=== PATIENT | female | born 1955 | race Two or more races ===

== ENCOUNTER → 2017-06-28 | Outpatient (REF) | payer MEDICAID | LOC: M SFHCCAPE 08:24 | PROVIDERS: ATTEND Physician Assistant | DX: Z12.4 Encounter for screening for malignant neoplasm of cervix (principal) ==

== ENCOUNTER → 2017-07-13 | Outpatient (CLI) | payer MEDICAID, OTHER ==
--- NOTE | 2017-07-21 16:03 | REPMRS ---
Patient History The patient states she had a clinical breast exam in 07/11 Patient is postmenopausal, has history of cancer in the left breast at age 52, and had previous chemotherapy at age 52. Family history of pancreatic cancer in mother at age 86. Malignant excisional biopsy of the left breast, 2008. Radiation therapy of the left breast, 2008. Benign stereotactic core biopsy of the right breast. Took tamoxifen for 1 year. Digital Woman Screen Mammo: July 13, 2017 - Exam #: [id number] Bilateral CC and MLO view(s) were taken. Technologist: Katie Morgan, Technologist Prior study comparison: February 12, 2015, digital bilateral screening mammo, [facility]. August 21, 2013, digital bilateral screening mammo, [facility]. FINDINGS: There are scattered fibroglandular densities. There are previously placed needle biopsy marker clips again seen in each breast. There are stable post treatment changes in the left breast.There has been no change in the appearance of the mammogram from the prior studies. There is a mild amount of scattered fibroglandular density which is fairly symmetric. There is no interval development of dominant mass, architectural distortion, or clustered microcalcification suggestive of malignancy. ASSESSMENT: BI-RADS/ACR category 2 mammogram. Benign finding(s). Recommendation Routine screening mammogram in 1 year (for women over age 40). This mammogram was interpreted with the aid of an FDA-approved computer-aided dectection system. Electronically Signed By: Gabriele Vaughan MD 07/21/17 [id number]
== END ==
LOC: M WHC 14:13
PROVIDERS: ATTEND Physician Assistant
DX: Z12.31 Encounter for screening mammogram for malignant neoplasm of breast (principal); Z78.0 Asymptomatic menopausal state

== ENCOUNTER → 2017-07-14 | Outpatient (REF) | payer MEDICAID, OTHER ==
[2017-07-14 16:43] LABS: BASO % 0.5 % (0.0-1.0); EOS # 0.1 10^3/uL (0.0-0.50); EOS % 1.8 % (0.0-3.0); IMMATURE GRANULOCYTE % 0.3 % (0-0); LYMPH # 1.5 10^3/uL (1.5-4.5); LYMPH % 38.4 % (24.0-44.0); MEAN CORPUSCULAR HEMOGLOBIN 32.8 pg (27.0-33.0); MEAN CORPUSCULAR HGB CONC 33.3 g/dl (32.0-36.5); MEAN CORPUSCULAR VOLUME 98.3 fl (80.0-96.0); MONO # 0.3 10^3/uL (0.0-0.8); MONO % 7.9 % (0.0-5.0); NEUTROPHILS # 1.9 10^3/uL (1.8-7.7); NEUTROPHILS % 51.1 % (36.0-66.0); PLATELET COUNT, AUTOMATED 239 10^3/uL (150-450); RED CELL DISTRIBUTION WIDTH 13.8 % (11.5-14.5); WHITE BLOOD COUNT 3.8 10^3/uL (4.0-10.0)
[2017-07-14 17:02] LABS: ALBUMIN 3.9 GM/DL (3.2-5.2); ALBUMIN/GLOBULIN RATIO 1.05 (1.00-1.93); ALKALINE PHOSPHATASE 93 U/L (45-117); ALT/SGPT 48 U/L (12-78); ANION GAP 8 MEQ/L (8-16); AST/SGOT 62 U/L (7-37); BILIRUBIN,TOTAL 0.4 MG/DL (0.2-1.0); BLOOD UREA NITROGEN 18 MG/DL (7-18); CALCIUM LEVEL 8.6 MG/DL (8.8-10.2); CARBON DIOXIDE LEVEL 30 MEQ/L (21-32); CHLORIDE LEVEL 105 MEQ/L (98-107); CHOLESTEROL LEVEL 210 MG/DL (<200); CREATININE FOR GFR 0.62 MG/DL (0.55-1.02); FREE T4 0.71 NG/DL (0.76-1.46); GLOMERULAR FILTRATION RATE > 60.0 (>45); GLUCOSE, FASTING 88 MG/DL (80-110); POTASSIUM SERUM 4.4 MEQ/L (3.5-5.1); SODIUM LEVEL 143 MEQ/L (136-145); TOTAL PROTEIN 7.6 GM/DL (6.4-8.2); TRIGLYCERIDES LEVEL 737 MG/DL (<150)
== END ==
LOC: M SFHCCAPE 08:56
PROVIDERS: ATTEND Physician Assistant
DX: K76.0 Fatty (change of) liver, not elsewhere classified (principal)

== ENCOUNTER → 2017-08-26 | Outpatient (CLI) | payer OTHER ==
[~2017-08-26] MED LIST: ISOVUE-370 76% 100ML VIAL (Q9967) As Ordered
== END ==
LOC: M RAD 12:55
DX: R59.0 Localized enlarged lymph nodes (principal)
CPT/HCPCS: Q9967

== ENCOUNTER → 2017-09-21 | Outpatient (REF) | payer OTHER ==
[2017-09-21 17:40] LABS: ALBUMIN 3.4 GM/DL (3.2-5.2); ALBUMIN/GLOBULIN RATIO 0.97 (1.00-1.93); ALKALINE PHOSPHATASE 104 U/L (45-117); ALT/SGPT 59 U/L (12-78); ANION GAP 10 MEQ/L (8-16); AST/SGOT 80 U/L (7-37); BILIRUBIN,TOTAL 0.2 MG/DL (0.2-1.0); BLOOD UREA NITROGEN 20 MG/DL (7-18); CALCIUM LEVEL 8.3 MG/DL (8.8-10.2); CARBON DIOXIDE LEVEL 27 MEQ/L (21-32); CHLORIDE LEVEL 104 MEQ/L (98-107); CHOLESTEROL LEVEL 172 MG/DL (<200); CHOLESTEROL RISK RATIO 3.245 (<5); CREATININE FOR GFR 0.65 MG/DL (0.55-1.30); FREE T4 0.66 NG/DL (0.76-1.46); GLOMERULAR FILTRATION RATE > 60.0 (>45); GLUCOSE, FASTING 116 MG/DL (70-100); HDL CHOLESTEROL 53 MG/DL (>40); NON-HDL-C 119 MG/DL; POTASSIUM SERUM 4.7 MEQ/L (3.5-5.1); SODIUM LEVEL 141 MEQ/L (136-145); TOTAL PROTEIN 6.9 GM/DL (6.4-8.2); TRIGLYCERIDES LEVEL 713 MG/DL (<150)
== END ==
LOC: M SFHCCAPE 10:35
DX: E03.9 Hypothyroidism, unspecified (principal); E78.1 Pure hyperglyceridemia

== ENCOUNTER → 2017-12-02 | Outpatient (CLI) | payer OTHER ==
[~2017-12-02] MED LIST changes: -ISOVUE-370 76% 100ML VIAL (Q9967) As Ordered; +LIDOCAINE 1% MDV 20ML VIAL As Ordered
== END ==
LOC: M RADPRO 11:24
DX: C77.0 Secondary and unspecified malignant neoplasm of lymph nodes of head, face and neck (principal); Z85.3 Personal history of malignant neoplasm of breast
CPT/HCPCS: 38505

== ENCOUNTER → 2017-12-07 | Outpatient (CLI) | payer OTHER | LOC: M PLARAD 10:46 | DX: C77.0 Secondary and unspecified malignant neoplasm of lymph nodes of head, face and neck (principal) | CPT/HCPCS: 78815 ==

== ENCOUNTER → 2018-01-03 | Outpatient (REF) | payer OTHER ==
[2018-01-05 00:07] LABS: CA 27.29 56.1 U/mL (0.0-38.6)
== END ==
LOC: M LAB REF 13:19
DX: C77.0 Secondary and unspecified malignant neoplasm of lymph nodes of head, face and neck (principal); C50.911 Malignant neoplasm of unspecified site of right female breast
CPT/HCPCS: 86300

== ENCOUNTER → 2018-01-11 | Outpatient (CLI) | payer OTHER | LOC: M WHC 14:15 | DX: Z78.0 Asymptomatic menopausal state (principal); C50.919 Malignant neoplasm of unspecified site of unspecified female breast; M85.851 Other specified disorders of bone density and structure, right thigh | CPT/HCPCS: 77080 ==

== ENCOUNTER → 2018-01-12 | Outpatient (REF) | payer OTHER | LOC: M LAB REF 13:21 | DX: C50.919 Malignant neoplasm of unspecified site of unspecified female breast (principal) | CPT/HCPCS: 88300 ==

== ENCOUNTER → 2018-01-24 | Outpatient (REF) | payer OTHER ==
[2018-01-24 20:08] LABS: BASO % 0.2 % (0.0-1.0); HEMATOCRIT 37.9 % (36.0-47.0); HEMOGLOBIN 12.5 g/dl (12.0-15.5); IMMATURE GRANULOCYTE % 0.2 % (0-3.0); LYMPH # 1.5 10^3/uL (1.5-4.5); LYMPH % 35.5 % (24.0-44.0); MEAN CORPUSCULAR HEMOGLOBIN 33.2 pg (27.0-33.0); MEAN CORPUSCULAR VOLUME 100.5 fl (80.0-96.0); MONO # 0.5 10^3/uL (0.0-0.8); MONO % 12.7 % (0.0-5.0); NEUTROPHILS # 2.1 10^3/uL (1.8-7.7); NEUTROPHILS % 50.4 % (36.0-66.0); PLATELET COUNT, AUTOMATED 195 10^3/uL (150-450); RED BLOOD COUNT 3.77 10^6/uL (4.00-5.40); RED CELL DISTRIBUTION WIDTH 14.6 % (11.5-14.5); WHITE BLOOD COUNT 4.1 10^3/uL (4.0-10.0)
[2018-01-24 20:30] LABS: ALBUMIN 3.5 GM/DL (3.2-5.2); ALBUMIN/GLOBULIN RATIO 0.88 (1.00-1.93); ALKALINE PHOSPHATASE 145 U/L (45-117); ALT/SGPT 101 U/L (12-78); ANION GAP 10 MEQ/L (8-16); AST/SGOT 138 U/L (7-37); BILIRUBIN,TOTAL 0.3 MG/DL (0.2-1.0); BLOOD UREA NITROGEN 25 MG/DL (7-18); C REACTIVE PROTEIN QUANTITATIV < 0.30 MG/DL (0.00-0.30); CALCIUM LEVEL 8.7 MG/DL (8.8-10.2); CARBON DIOXIDE LEVEL 26 MEQ/L (21-32); CHLORIDE LEVEL 100 MEQ/L (98-107); CHOLESTEROL LEVEL 208 MG/DL (<200); CHOLESTEROL RISK RATIO 2.773 (<5); CREATININE FOR GFR 0.86 MG/DL (0.55-1.30); FREE T4 0.86 NG/DL (0.76-1.46); GLOMERULAR FILTRATION RATE > 60.0 (>45); GLUCOSE, FASTING 116 MG/DL (70-100); HDL CHOLESTEROL 75 MG/DL (>40); NON-HDL-C 133 MG/DL; POTASSIUM SERUM 4.4 MEQ/L (3.5-5.1); RHEUMATOID FACTOR QUANT 17.3 IU/ML (<15.0); SODIUM LEVEL 136 MEQ/L (136-145); TOTAL PROTEIN 7.5 GM/DL (6.4-8.2); TRIGLYCERIDES LEVEL 1226 MG/DL (<150)
[2018-01-24 20:47] LABS: ERYTHROCYTE SEDIMENTATION RATE 6 mm/hr (0-30)
[2018-01-28 14:18] LABS: ANTI DOUBLE STRAND-DNA AB 1 IU/mL (0-9); ANTINUCLEAR ANTIBODIES DIRECT Positive (Negative); Lyme Disease IgG Ab 18 kDa Ban Absent (.); Lyme Disease IgG Ab 23 kDa Ban Absent (.); Lyme Disease IgG Ab 28 kDa Ban Absent (.); Lyme Disease IgG Ab 30 kDa Ban Present (.); Lyme Disease IgG Ab 39 kDa Ban Absent (.); Lyme Disease IgG Ab 41 kDa Ban Present (.); Lyme Disease IgG Ab 45 kDa Ban Present (.); Lyme Disease IgG Ab 58 kDa Ban Absent (.); Lyme Disease IgG Ab 66 kDa Ban Present (.); Lyme Disease IgG Ab 93 kDa Ban Absent (.); Lyme Disease IgG West Blot Int Negative (.); Lyme Disease IgG/IgM Antibodie 2.66 ISR (0.00-0.90); Lyme Disease IgM Ab 23 kDa Ban Absent (.); Lyme Disease IgM Ab 39 kDa Ban Absent (.); Lyme Disease IgM Ab 41 kDa Ban Absent (.); Lyme Disease IgM Ab Quantitati 1.38 index (0.00-0.79); Lyme Disease IgM West Blot Int Negative (.); RNP ANTIBODIES 0.4 AI (0.0-0.9); SJOGREN'S ANTI SS-B 0.9 AI (0.0-0.9); SMITH ANTIBODIES <0.2 AI (0.0-0.9)
[2018-01-28 14:18] LABS: CYCLIC CITRULLINATED PEPTIDE 6 units (0-19)
== END ==
LOC: M SFHCCAPE 09:08
DX: R21 Rash and other nonspecific skin eruption (principal); I10 Essential (primary) hypertension; E03.9 Hypothyroidism, unspecified; E78.1 Pure hyperglyceridemia

== ENCOUNTER → 2018-02-08 | Outpatient (CLI) | payer OTHER | LOC: M ONCR 09:35 | DX: C77.0 Secondary and unspecified malignant neoplasm of lymph nodes of head, face and neck (principal) | CPT/HCPCS: 99201 ==

== ENCOUNTER → 2018-02-16 | Outpatient (REF) | payer OTHER ==
[2018-02-16 17:39] LABS: STABLE ALKPHOS 34 U/L
[2018-02-16 17:54] LABS: ALBUMIN 2.9 GM/DL (3.2-5.2); ALBUMIN/GLOBULIN RATIO 0.83 (1.00-1.93); ALKALINE PHOSPHATASE 84 U/L (45-117); ALT/SGPT 30 U/L (12-78); ANION GAP 10 MEQ/L (8-16); AST/SGOT 27 U/L (7-37); BILIRUBIN,TOTAL 0.2 MG/DL (0.2-1.0); BLOOD UREA NITROGEN 10 MG/DL (7-18); CALCIUM LEVEL 8.2 MG/DL (8.8-10.2); CARBON DIOXIDE LEVEL 26 MEQ/L (21-32); CHLORIDE LEVEL 111 MEQ/L (98-107); CHOLESTEROL LEVEL 127 MG/DL (<200); CHOLESTEROL RISK RATIO 1.607 (<5); CREATININE FOR GFR 0.57 MG/DL (0.55-1.30); GAMMA GLUTAMYLTRANSPEPTIDASE 252 U/L (5-55); GLOMERULAR FILTRATION RATE > 60.0 (>45); GLUCOSE, FASTING 101 MG/DL (70-100); HDL CHOLESTEROL 79 MG/DL (>40); LDL CHOLESTEROL 22.2 MG/DL (<100); NON-HDL-C 48 MG/DL; POTASSIUM SERUM 4.6 MEQ/L (3.5-5.1); SODIUM LEVEL 147 MEQ/L (136-145); TOTAL PROTEIN 6.4 GM/DL (6.4-8.2); TRIGLYCERIDES LEVEL 129 MG/DL (<150)
[2018-02-16 17:57] LABS: LABILE ALKPHOS 50 U/L
[2018-02-16 18:01] LABS: % LABILE ALKALINE PHOSPHATASE 59.5 %
[2018-02-18 09:39] LABS: HEPATITIS A IgG TOTAL Positive (Negative)
[2018-02-18 10:09] LABS: HEPATITIS B SURFACE ANTIGEN NEGATIVE (NEGATIVE)
[2018-02-18 10:25] LABS: HEPATITIS B CORE ANTIBODY IGM NEGATIVE (NEGATIVE)
[2018-02-18 11:19] LABS: HEPATITIS A ANTIBODY IGM NEGATIVE (NEGATIVE)
[2018-02-18 11:21] LABS: HEPATITIS C VIRUS ABY INDEX > 11.0 INDEX (<0.8)
[2018-02-22 08:54] LABS: HCV RNA NAA QUALITATIVE Negative (Negative)
== END ==
LOC: M SFHCCAPE 08:03
DX: E78.1 Pure hyperglyceridemia (principal); R74.8 Abnormal levels of other serum enzymes
CPT/HCPCS: 80053

== ENCOUNTER → 2018-02-16 | Outpatient (REF) | payer OTHER ==
[2018-02-16 16:54] LABS: BASO % 0.3 % (0.0-1.0); EOS % 0.9 % (0.0-3.0); HEMATOCRIT 32.2 % (36.0-47.0); HEMOGLOBIN 10.5 g/dl (12.0-15.5); IMMATURE GRANULOCYTE % 0.6 % (0-3.0); LYMPH # 0.9 10^3/uL (1.5-4.5); LYMPH % 24.7 % (24.0-44.0); MEAN CORPUSCULAR HGB CONC 32.6 g/dl (32.0-36.5); MEAN CORPUSCULAR VOLUME 101.3 fl (80.0-96.0); MONO # 0.4 10^3/uL (0.0-0.8); MONO % 12.2 % (0.0-5.0); NEUTROPHILS # 2.2 10^3/uL (1.8-7.7); NEUTROPHILS % 61.3 % (36.0-66.0); PLATELET COUNT, AUTOMATED 296 10^3/uL (150-450); RED BLOOD COUNT 3.18 10^6/uL (4.00-5.40); WHITE BLOOD COUNT 3.5 10^3/uL (4.0-10.0)
[2018-02-16 16:55] LABS: ALBUMIN 2.8 GM/DL (3.2-5.2); ALBUMIN/GLOBULIN RATIO 0.78 (1.00-1.93); ALKALINE PHOSPHATASE 88 U/L (45-117); ALT/SGPT 30 U/L (12-78); ANION GAP 4 MEQ/L (8-16); AST/SGOT 27 U/L (7-37); BILIRUBIN,TOTAL 0.2 MG/DL (0.2-1.0); BLOOD UREA NITROGEN 8 MG/DL (7-18); CALCIUM LEVEL 8.3 MG/DL (8.8-10.2); CARBON DIOXIDE LEVEL 29 MEQ/L (21-32); CHLORIDE LEVEL 111 MEQ/L (98-107); CREATININE FOR GFR 0.56 MG/DL (0.55-1.30); GLOMERULAR FILTRATION RATE > 60.0 (>45); GLUCOSE, FASTING 99 MG/DL (70-100); POTASSIUM SERUM 4.6 MEQ/L (3.5-5.1); SODIUM LEVEL 144 MEQ/L (136-145); TOTAL PROTEIN 6.4 GM/DL (6.4-8.2)
[2018-02-19 00:09] LABS: CA 27.29 47.5 U/mL (0.0-38.6)
== END ==
LOC: M LABDRWCV 16:35
DX: C77.0 Secondary and unspecified malignant neoplasm of lymph nodes of head, face and neck (principal); C50.911 Malignant neoplasm of unspecified site of right female breast
CPT/HCPCS: 86300

== ENCOUNTER 2018-02-21 13:37 | Outpatient (RCR) | payer OTHER | END 2018-02-22 | LOC: M ONCR 13:37 | DX: C50.912 Malignant neoplasm of unspecified site of left female breast (principal); C77.3 Secondary and unspecified malignant neoplasm of axilla and upper limb lymph nodes | CPT/HCPCS: 77334 ==

== ENCOUNTER 2018-02-23 15:48 | Outpatient (RCR) | payer OTHER | END 2018-03-25 | LOC: M ONCR 15:48 | DX: C77.3 Secondary and unspecified malignant neoplasm of axilla and upper limb lymph nodes (principal); C50.912 Malignant neoplasm of unspecified site of left female breast | CPT/HCPCS: 77300 ==

== ENCOUNTER → 2018-02-23 | Outpatient (CLI) | payer OTHER ==
[~2018-02-23] MED LIST changes: +ISOVUE-370 76% 100ML VIAL (Q9967) As Ordered; -LIDOCAINE 1% MDV 20ML VIAL As Ordered
== END ==
LOC: M RAD 07:11
DX: E78.1 Pure hyperglyceridemia (principal); R91.8 Other nonspecific abnormal finding of lung field; R16.0 Hepatomegaly, not elsewhere classified; K76.0 Fatty (change of) liver, not elsewhere classified; I70.0 Atherosclerosis of aorta; R93.421 Abnormal radiologic findings on diagnostic imaging of right kidney
CPT/HCPCS: Q9967

== ENCOUNTER 2018-03-29 10:19 | Outpatient (RCR) | payer OTHER | END 2018-04-24 | LOC: M ONCR 10:19 | DX: C77.3 Secondary and unspecified malignant neoplasm of axilla and upper limb lymph nodes (principal); C50.912 Malignant neoplasm of unspecified site of left female breast | CPT/HCPCS: 77336 ==

== ENCOUNTER → 2018-06-29 | Outpatient (CLI) | payer OTHER | LOC: M ONCR 09:11 | DX: C50.912 Malignant neoplasm of unspecified site of left female breast (principal); C77.3 Secondary and unspecified malignant neoplasm of axilla and upper limb lymph nodes | CPT/HCPCS: 99211 ==

== ENCOUNTER → 2018-06-30 | Outpatient (REF) | payer OTHER ==
[2018-06-30 12:20] LABS: APPEARANCE, URINE HAZY (CLEAR); BACTERIA, URINE AUTO 1+ (NEGATIVE); BILIRUBIN, URINE AUTO NEGATIVE (NEGATIVE); BLOOD, URINE BLOOD 2+ (NEGATIVE); COLOR, URINE YELLOW (YELLOW); GLUCOSE, URINE (UA) AUTO NEGATIVE (NEGATIVE); KETONE, URINE AUTO NEGATIVE (NEGATIVE); LEUKOCYTE ESTERASE, URINE AUTO 2+ (NEGATIVE); NITRITE, URINE AUTO NEGATIVE (NEGATIVE); PROTEIN, URINE AUTO NEGATIVE (NEGATIVE); RBC, URINE AUTO 4 /HPF (0-3); SPECIFIC GRAVITY URINE AUTO 1.012 (1.002-1.035); SQUAMOUS EPITHELIAL CELL UR AU 0 /HPF (0-6); UROBILINOGEN, URINE AUTO 0.2 mg/dL (0.0-2.0); WBC, URINE AUTO 12 /HPF (0-3)
[2018-06-30 12:31] LABS: CREATININE,RANDOM URINE 64.7 MG/DL; TOTAL PROTEIN,RANDOM URINE 24.8 MG/DL (0.0-12.0)
[2018-06-30 12:58] LABS: C REACTIVE PROTEIN QUANTITATIV 0.34 MG/DL (0.00-0.30)
[2018-06-30 13:00] LABS: ERYTHROCYTE SEDIMENTATION RATE 35 mm/hr (0-30)
[2018-06-30 14:04] LABS: COMPLEMENT C3 97 MG/DL (90-180)
[2018-06-30 14:04] LABS: COMPLEMENT C4 15 MG/DL (10-40)
[2018-07-03 00:06] LABS: ANA (HEP2) Negative (.); BETA-2 GLYCOPROTEIN I ABY IGA <9 (0-25); BETA-2 GLYCOPROTEIN I ABY IGG <9 (0-20); BETA-2 GLYCOPROTEIN I ABY IGM 10 (0-32); CARDIOLIPIN IGA ANTIBODY <9 APL U/mL (0-11); CARDIOLIPIN IGG ANTIBODY <9 GPL U/mL (0-14); CARDIOLIPIN IGM ANTIBODY 13 MPL U/mL (0-12)
[2018-07-05 10:50] LABS: DRVV SCREEN 34.5 SEC
[2018-07-05 11:19] LABS: PTT LUPUS TYPE ANTICOAG SCREEN 0.8 (0-1.2)
== END ==
LOC: M SFHCPLAZ 09:00
DX: L93.1 Subacute cutaneous lupus erythematosus (principal)
CPT/HCPCS: 86160

== ENCOUNTER → 2018-07-13 | Outpatient (REF) | payer OTHER ==
[~2018-07-13] MED LIST changes: +ATOR1TAB19 PO; +ATOR1TAB21 PO; +CO Q10CA PO; +COEN100C PO; -ISOVUE-370 76% 100ML VIAL (Q9967) As Ordered; +LETR2.5T2 PO; +LEVO25TA5 PO; +LISI-542 PO; +LISI-672 PO; +MAGN200T PO; +MAGN500C PO; +MELA3TAB49 PO; +MULT1TAB18 PO; +PAXI40TA10 PO; +SILV40CR EXT; +SUPER K PO
[2018-07-13 17:05] LABS: APPEARANCE, URINE HAZY (CLEAR); BACTERIA, URINE AUTO 1+ (NEGATIVE); BILIRUBIN, URINE AUTO NEGATIVE (NEGATIVE); BLOOD, URINE BLOOD NEGATIVE (NEGATIVE); COLOR, URINE YELLOW (YELLOW); GLUCOSE, URINE (UA) AUTO NEGATIVE (NEGATIVE); KETONE, URINE AUTO NEGATIVE (NEGATIVE); LEUKOCYTE ESTERASE, URINE AUTO 2+ (NEGATIVE); NITRITE, URINE AUTO NEGATIVE (NEGATIVE); PROTEIN, URINE AUTO NEGATIVE (NEGATIVE); RBC, URINE AUTO 2 /HPF (0-3); SPECIFIC GRAVITY URINE AUTO 1.014 (1.002-1.035); SQUAMOUS EPITHELIAL CELL UR AU 0 /HPF (0-6); UROBILINOGEN, URINE AUTO 0.2 mg/dL (0.0-2.0); WBC, URINE AUTO 114 /HPF (0-3)
[2018-07-13 17:06] LABS: BASO % 0.4 % (0.0-1.0); EOS # 0.1 10^3/uL (0.0-0.50); EOS % 1.2 % (0.0-3.0); LYMPH # 0.7 10^3/uL (1.5-4.5); LYMPH % 14.3 % (24.0-44.0); MEAN CORPUSCULAR HEMOGLOBIN 31.5 pg (27.0-33.0); MEAN CORPUSCULAR HGB CONC 32.4 g/dl (32.0-36.5); MEAN CORPUSCULAR VOLUME 97.1 fl (80.0-96.0); MONO # 0.4 10^3/uL (0.0-0.8); MONO % 8.2 % (0.0-5.0); NEUTROPHILS # 3.7 10^3/uL (1.8-7.7); NEUTROPHILS % 75.7 % (36.0-66.0); PLATELET COUNT, AUTOMATED 276 10^3/uL (150-450); RED BLOOD COUNT 3.81 10^6/uL (4.00-5.40); WHITE BLOOD COUNT 4.9 10^3/uL (4.0-10.0)
[2018-07-13 17:11] LABS: ALT/SGPT 33 U/L (12-78); BILIRUBIN,DIRECT 0.1 MG/DL (0.0-0.2); BILIRUBIN,TOTAL 0.2 MG/DL (0.2-1.0); BLOOD UREA NITROGEN 17 MG/DL (7-18); CALCIUM LEVEL 9.2 MG/DL (8.8-10.2); CARBON DIOXIDE LEVEL 26 MEQ/L (21-32); CHLORIDE LEVEL 106 MEQ/L (98-107); CREATININE FOR GFR 0.92 MG/DL (0.55-1.30); GLOMERULAR FILTRATION RATE > 60.0 (>45); GLUCOSE, FASTING 94 MG/DL (70-100); SODIUM LEVEL 141 MEQ/L (136-145); TOTAL PROTEIN 7.7 GM/DL (6.4-8.2)
== END ==
LOC: M SFHCCAPE 10:33
PROVIDERS: ATTEND Physician Assistant
DX: R74.8 Abnormal levels of other serum enzymes (principal); R82.90 Unspecified abnormal findings in urine

== ENCOUNTER → 2018-07-21 | Outpatient (CLI) | payer OTHER ==
[~2018-07-21] MED LIST changes: +CEPH500C PO; +GASTROGRAFIN SOLUTION 30ML (Q9963) As Ordered ONE; +ISOVUE-370 76% 100ML VIAL (Q9967) As Ordered ONE
--- NOTE | 2018-07-21 11:36 | REP ---
Clinical: History of metastatic breast cancer. Technique: Axial contrast enhanced images from the lung bases to the pubic symphysis using oral (per protocol) and 100 ml Isovue 370 intravenous contrast material with coronal and sagittal re-formations. Findings: Lung bases are clear. Visualized heart and pericardium normal. Liver demonstrates 1.1 cm hypodense lesion along the periphery of the right lobe (image 49) with suggestions for punctate circumferential enhancement raising the possibility of small hemangioma. A second a vague 9 mm hypodensity is noted within the mid liver (image 37) which is nonspecific. No further hepatic lesions are identified. Spleen, pancreas, gallbladder, bilateral adrenal glands are normal. Evaluation of the kidneys demonstrates 1.1 cm simple right renal cyst and nonobstructing left intrarenal calculi up to 4 mm. The enteric system is without obstruction or acute inflammatory process. Normal terminal ileum and appendix are identified in the right lower quadrant. Pelvis demonstrates normal bladder and age-appropriate uterus/adnexa. No ascites. No significant adenopathy. Abdominal aorta and vasculature without aneurysm or dissection. Musculoskeletal structures demonstrate degenerative changes and ill-defined areas of sclerosis which are nonspecific. Impression: 1. Hepatic hypodensities are nonspecific but raise the possibility of hemangioma. Given the patient's history, metastatic disease although less likely cannot be excluded. 2. Simple right renal cyst and few nonobstructing left renal calculi. 3. Predominantly and presumed degenerative changes to the osseous structures without focal osseous abnormality. Electronically Signed by Kevan Morgan MD 07/21/2018 11:27 A
--- NOTE | 2018-07-21 13:01 | REP ---
CT CHEST WITH IV CONTRAST: TECHNIQUE: Axial contrast enhanced images from the thoracic inlet to the upper abdomen using 100 mL Isovue 370 intravenous contrast material with multiplanar reformations. Comparison is 02/23/2018. Scattered fibrotic changes are again seen in the lungs, stable. No suspicious nodular opacity is seen. There is a tiny calcified granuloma in the right lower lobe. No consolidation is seen. The heart is normal in size. There is no pleural or pericardial effusion. No adenopathy is seen in the chest. Postsurgical scarring is seen in the left chest wall. There are degenerative changes of the spine. There are old rib fractures again noted. IMPRESSION: Stable CT chest. No new nodule or adenopathy. Electronically Signed by Forest Spann MD 07/21/2018 01:36 P
== END ==
LOC: M RAD 09:16
PROVIDERS: ATTEND Internal Medicine Medical Oncology
DX: C50.919 Malignant neoplasm of unspecified site of unspecified female breast (principal); Z92.3 Personal history of irradiation
CPT/HCPCS: 71260; 74177; Q9963; Q9967

== ENCOUNTER → 2018-08-09 | Outpatient (REF) ==
[~2018-08-09] MED LIST changes: -GASTROGRAFIN SOLUTION 30ML (Q9963) As Ordered ONE; -ISOVUE-370 76% 100ML VIAL (Q9967) As Ordered ONE
[2018-08-10 10:09] LABS: RUBELLA IgG QUALITATIVE IMMUNE (IMMUNE)
== END ==
LOC: M LAB 10:59
PROVIDERS: ATTEND Nurse Practitioner Adult Health
DX: Z00.00 Encounter for general adult medical examination without abnormal findings (principal)

== ENCOUNTER → 2018-08-11 | Outpatient (CLI) | payer OTHER ==
--- NOTE | 2018-08-11 17:25 | REPMRS ---
Patient History The patient states she had a clinical breast exam in 07/2018. Patient is postmenopausal, has history of cancer in the left breast at age 52, and had previous chemotherapy at age 52. Family history of pancreatic cancer at age 86 in mother. Radiation therapy of the left breast, 2008. Malignant excisional biopsy of the left breast, July 17, 2008. Benign stereotactic core biopsy of the right breast. Radiation therapy of the left breast. Taking tamoxifen for 2 years. Digital Woman Screen Mammo: August 11, 2018 - Exam #: [id number] Bilateral CC and MLO view(s) were taken. Technologist: Juliette Simon, Technologist Prior study comparison: July 13, 2017, digital woman screen mammo performed at [facility]. February 12, 2015, digital bilateral screening mammo, [facility]. August 21, 2013, digital bilateral screening mammo, performed [facility]. FINDINGS: There are scattered fibroglandular densities. There is a needle biopsy marker clip again noted in each breast. Post-treatment changes are again noted on the left. There has been no change in the appearance of the mammogram from the prior studies. There is a mild amount of scattered fibroglandular density which is fairly symmetric. There is no interval development of dominant mass, architectural distortion, or clustered microcalcification suggestive of malignancy. 3-D tomosynthesis shows no additional findings. Assessment: BI-RADS/ACR category 2 mammogram. Benign finding(s). Recommendation Routine screening mammogram of both breasts in 1 year (for women over age 40). This mammogram was interpreted with the aid of an FDA-approved computer-aided dectection system. Electronically Signed By: Gabriele Vaughan MD 08/11/18 [id number]
== END ==
LOC: M WHC 07:08
PROVIDERS: ATTEND Internal Medicine Medical Oncology
DX: Z12.31 Encounter for screening mammogram for malignant neoplasm of breast (principal); Z85.3 Personal history of malignant neoplasm of breast; Z80.0 Family history of malignant neoplasm of digestive organs

== ENCOUNTER → 2018-08-11 | Outpatient (CLI) | payer OTHER ==
[~2018-08-11] MED LIST changes: +ISOVUE-370 76% 100ML VIAL (Q9967) As Ordered ONE
--- NOTE | 2018-08-11 11:08 | REP ---
CT NECK WITH CONTRAST: HISTORY: Metastatic breast carcinoma. CONTRAST: Isovue-370, 75 mL. COMPARISON: 08/26/2017 The naso-, ac-, and hypopharynx, larynx, and subglottic trachea are normal in appearance. The salivary and thyroid glands are normal in size and density. An enlarged lymph node 1.2 cm in width is present in the left supraclavicular area at the level of the cricoid cartilage. The previously noted slightly enlarged lymph nodes in the left supraclavicular area are decreased in size a measure less than 1 cm in width. . Atherosclerotic calcification is present at the left carotid bifurcation. Degenerative change is present in the cervical spine. The lung apices are clear. The visualized sinuses are clear. IMPRESSION: There is a single slightly enlarged 1.2 cm lymph node in the left supraclavicular area at the level of the cricoid cartilage. Previously noted enlarged lymph nodes are decreased in size. Electronically Signed by Hung Hernandez MD 08/11/2018 11:12 A
== END ==
LOC: M RAD 09:58
PROVIDERS: ATTEND Internal Medicine Medical Oncology
DX: C50.912 Malignant neoplasm of unspecified site of left female breast (principal); C77.0 Secondary and unspecified malignant neoplasm of lymph nodes of head, face and neck; M50.30 Other cervical disc degeneration, unspecified cervical region
CPT/HCPCS: 70491; Q9967

== ENCOUNTER → 2018-08-16 | Outpatient (CLI) | payer OTHER ==
[~2018-08-16] MED LIST changes: -ISOVUE-370 76% 100ML VIAL (Q9967) As Ordered ONE
--- NOTE | 2018-08-16 18:56 | REP ---
PET/CT: History: Breast carcinoma. Monitoring response to therapy. Comparisons: Comparison PET/CT study December 07, 2017. TECHNIQUE: 1 hour 20 minutes following the intravenous injection of a 7.8 mCi dose of F-18 FDG, three-dimensional PET scintigraphy is acquired from the skull base to the proximal thighs. Triplanar noncontrast CT scanning is acquired through the same anatomic range for attenuation correction, and image registration with scan parameters optimized to minimize radiation exposure to the patient. PET scintigraphy and CT datasets were fused and displayed on a workstation with multiplanar and projection display capability. PET/CT Findings: At the site where the prior study showed hypermetabolic left supraclavicular lymphadenopathy, there is a normal-sized lymph node, 1 cm x 0.7 cm. This is significantly smaller than on the prior study. There is discernible FDG accumulation in this lymph node, maximum standard uptake value is 2.3. No new abnormal lymph nodes are seen and no other abnormal uptake is observed. There is no abnormal hypermetabolic uptake in the chest, abdomen or pelvis. No abnormal pulmonary parenchymal uptake is seen. No abnormal skeletal uptake is observed. Impression: Significant improvement. A normal-sized lymph node is seen in the left supraclavicular region where the prior study showed hypermetabolic uptake. This is decreased in size and decreased somewhat in uptake. Maximum standard uptake value is 2.3 which is equivocal. Electronically Signed by Jr Vaughan MD 08/17/2018 07:30 A
== END ==
LOC: M PLARAD 11:27
PROVIDERS: ATTEND Internal Medicine Medical Oncology
DX: C50.912 Malignant neoplasm of unspecified site of left female breast (principal)
CPT/HCPCS: 78815; A9552

== ENCOUNTER → 2018-12-15 | Outpatient (REF) | payer OTHER ==
[~2018-12-15] MED LIST changes: +AMLO2.5T3 PO; +CALC-218 PO; +CBD OIL PO; +FLUO20CA19 PO; +HYDR12.55 PO; +LISI40TA PO; +MULTCAP PO
[2018-12-15 17:05] LABS: ALBUMIN 3.7 GM/DL (3.2-5.2); ALT/SGPT 32 U/L (12-78); BILIRUBIN,TOTAL 0.3 MG/DL (0.2-1.0); BLOOD UREA NITROGEN 13 MG/DL (7-18); CALCIUM LEVEL 9.1 MG/DL (8.8-10.2); CARBON DIOXIDE LEVEL 27 MEQ/L (21-32); CHLORIDE LEVEL 102 MEQ/L (98-107); CHOLESTEROL LEVEL 163 MG/DL (<200); CHOLESTEROL RISK RATIO 1.987 (<5); CREATININE FOR GFR 0.81 MG/DL (0.55-1.30); GLOMERULAR FILTRATION RATE > 60.0 (>45); GLUCOSE, FASTING 108 MG/DL (70-100); HDL CHOLESTEROL 82 MG/DL (>40); LDL CHOLESTEROL 54 MG/DL (<100); NON-HDL-C 81 MG/DL; POTASSIUM SERUM 3.9 MEQ/L (3.5-5.1); SODIUM LEVEL 135 MEQ/L (136-145); TOTAL PROTEIN 7.3 GM/DL (6.4-8.2); TRIGLYCERIDES LEVEL 137 MG/DL (<150)
== END ==
LOC: M SFHCCAPE 07:01
PROVIDERS: ATTEND Physician Assistant
DX: I10 Essential (primary) hypertension (principal); E78.1 Pure hyperglyceridemia; E03.9 Hypothyroidism, unspecified

== ENCOUNTER → 2018-12-27 | Outpatient (CLI) | payer OTHER ==
[~2018-12-27] MED LIST changes: +PARO40TA2 PO
--- NOTE | 2018-12-28 16:16 | REP ---
HISTORY: Monitoring chemo response to metastatic left breast carcinoma. COMPARISON: CT/PET 08/16/2018 showed significant improvement compared to the prior CT/PET of 12/07/2017 and showing no definite abnormal hypermetabolic activity in the neck, chest, abdomen or pelvis. The prior exam showed a normal sized left supraclavicular lymph node decreased in size from the prior exam. After the intravenous administration of 9.69 mCi of FDG-18 triplane whole body PET/CT was performed from the skull base to the mid thigh. Prior CT scans of the chest, abdomen, pelvis, and neck were reviewed. The left supraclavicular lymph node seen on the prior exam is of normal size and is not hypermetabolic. There is no abnormal hypermetabolic activity seen in the neck, chest, abdomen, or pelvis. The CT component of today's examination shows a right maxillary sinus air fluid level and left maxillary sinus mucosal thickening. Scattered areas of increased metabolism are seen throughout the musculature consistent with a lack of proper resting post injection prior to imaging. IMPRESSION: 1. No abnormal hypermetabolic activity. Findings as described above. 2. Evidence of right maxillary sinusitis and left maxillary sinus mucosal thickening. These findings represent a change from the prior PET/CT of 08/16/2018. Correlate clinically. Electronically Signed by Dat Toribio DO 12/28/2018 04:59 P
== END ==
LOC: M PLARAD 08:10
PROVIDERS: ATTEND Internal Medicine Medical Oncology
DX: C50.912 Malignant neoplasm of unspecified site of left female breast (principal); C77.0 Secondary and unspecified malignant neoplasm of lymph nodes of head, face and neck
CPT/HCPCS: 78815; A9552

== ENCOUNTER → 2019-02-20 | Outpatient (REF) | payer OTHER ==
[2019-02-20 16:45] LABS: ALBUMIN 3.4 GM/DL (3.2-5.2); ALT/SGPT 43 U/L (12-78); BILIRUBIN,TOTAL 0.2 MG/DL (0.2-1.0); BLOOD UREA NITROGEN 16 MG/DL (7-18); CALCIUM LEVEL 9.3 MG/DL (8.8-10.2); CARBON DIOXIDE LEVEL 23 MEQ/L (21-32); CHLORIDE LEVEL 108 MEQ/L (98-107); CREATININE FOR GFR 0.75 MG/DL (0.55-1.30); FREE T4 0.66 NG/DL (0.76-1.46); GLOMERULAR FILTRATION RATE > 60.0 (>45); GLUCOSE, FASTING 86 MG/DL (70-100); POTASSIUM SERUM 4.8 MEQ/L (3.5-5.1); SODIUM LEVEL 141 MEQ/L (136-145); TOTAL PROTEIN 7.2 GM/DL (6.4-8.2)
[2019-02-20 17:05] LABS: HEMOGLOBIN A1c 5.3 %
== END ==
LOC: M SFHCCAPE 07:29
PROVIDERS: ATTEND Physician Assistant
DX: R73.01 Impaired fasting glucose (principal); E03.9 Hypothyroidism, unspecified

== ENCOUNTER → 2019-03-06 | Outpatient (REF) | payer OTHER ==
[2019-03-06 17:05] LABS: C REACTIVE PROTEIN QUANTITATIV < 0.30 MG/DL (0.00-0.30); COMPLEMENT C3 77 MG/DL (90-180); COMPLEMENT C4 14 MG/DL (10-40)
[2019-03-06 17:19] LABS: CREATININE,RANDOM URINE 16.5 MG/DL; TOTAL PROTEIN,RANDOM URINE 8.3 MG/DL (0.0-12.0)
[2019-03-06 17:42] LABS: BASO % 0.4 % (0.0-1.0); EOS # 0.1 10^3/uL (0.0-0.50); EOS % 1.8 % (0.0-3.0); HEMATOCRIT 36.1 % (36.0-47.0); HEMOGLOBIN 11.8 g/dl (12.0-15.5); LYMPH # 0.7 10^3/uL (1.5-4.5); LYMPH % 26.3 % (24.0-44.0); MEAN CORPUSCULAR HEMOGLOBIN 33.1 pg (27.0-33.0); MEAN CORPUSCULAR HGB CONC 32.7 g/dl (32.0-36.5); MEAN CORPUSCULAR VOLUME 101.4 fl (80.0-96.0); MONO # 0.4 10^3/uL (0.0-0.8); MONO % 14.6 % (0.0-5.0); NEUTROPHILS # 1.6 10^3/uL (1.8-7.7); NEUTROPHILS % 56.9 % (36.0-66.0); PLATELET COUNT, AUTOMATED 238 10^3/uL (150-450); RED BLOOD COUNT 3.56 10^6/uL (4.00-5.40); WHITE BLOOD COUNT 2.7 10^3/uL (4.0-10.0)
[2019-03-06 18:34] LABS: ERYTHROCYTE SEDIMENTATION RATE 19 mm/hr (0-30)
[2019-03-10 14:17] LABS: ANA (HEP2) Negative (.); ANTI DS-DNA AB <1:10 titer (.)
== END ==
LOC: M SFHCCAPE 07:35
PROVIDERS: ATTEND Internal Medicine Rheumatology
DX: L93.1 Subacute cutaneous lupus erythematosus (principal)

== ENCOUNTER → 2019-04-05 | Outpatient (REF) | payer OTHER ==
[~2019-04-05] MED LIST changes: -COEN100C PO; +UBID100C6 PO
[2019-04-05 17:50] LABS: BASO % 0.2 % (0.0-1.0); EOS # 0.1 10^3/uL (0.0-0.5); HEMATOCRIT 38.4 % (36.0-47.0); HEMOGLOBIN 12.7 g/dl (12.0-15.5); LYMPH # 0.9 10^3/uL (1.5-5.0); LYMPH % 14.8 % (24.0-44.0); MEAN CORPUSCULAR HEMOGLOBIN 33.2 pg (27.0-33.0); MEAN CORPUSCULAR HGB CONC 33.1 g/dl (32.0-36.5); MEAN CORPUSCULAR VOLUME 100.3 fl (80.0-96.0); MONO # 0.4 10^3/uL (0.0-0.8); MONO % 7.4 % (0.0-5.0); NEUTROPHILS # 4.5 10^3/uL (1.5-8.5); NEUTROPHILS % 76.3 % (36.0-66.0); PLATELET COUNT, AUTOMATED 273 10^3/uL (150-450); RED BLOOD COUNT 3.83 10^6/uL (4.00-5.40); WHITE BLOOD COUNT 5.8 10^3/uL (4.0-10.0)
== END ==
LOC: M LABDRWCV 15:59
PROVIDERS: ATTEND Internal Medicine Medical Oncology
DX: Z85.3 Personal history of malignant neoplasm of breast (principal)

== ENCOUNTER → 2019-05-25 | Outpatient (REF) | payer OTHER ==
[~2019-05-25] MED LIST changes: +COEN100C PO; -UBID100C6 PO
[2019-05-25 17:10] LABS: ALBUMIN 3.3 GM/DL (3.2-5.2); ALT/SGPT 34 U/L (12-78); BILIRUBIN,TOTAL 0.2 MG/DL (0.2-1.0); BLOOD UREA NITROGEN 15 MG/DL (7-18); CALCIUM LEVEL 9.6 MG/DL (8.8-10.2); CARBON DIOXIDE LEVEL 26 MEQ/L (21-32); CHLORIDE LEVEL 108 MEQ/L (98-107); CHOLESTEROL LEVEL 179 MG/DL (<200); CHOLESTEROL RISK RATIO 1.737 (<5); CREATININE FOR GFR 0.74 MG/DL (0.55-1.30); FREE T4 0.77 NG/DL (0.76-1.46); GLOMERULAR FILTRATION RATE > 60.0 (>45); GLUCOSE, FASTING 101 MG/DL (70-100); HDL CHOLESTEROL 103 MG/DL (>40); LDL CHOLESTEROL 40 MG/DL (<100); NON-HDL-C 76 MG/DL; POTASSIUM SERUM 4.3 MEQ/L (3.5-5.1); SODIUM LEVEL 141 MEQ/L (136-145); TRIGLYCERIDES LEVEL 180 MG/DL (<150)
[2019-05-25 17:42] LABS: HEMOGLOBIN A1c 5.7 %
== END ==
LOC: M SFHCCAPE 07:18
PROVIDERS: ATTEND Physician Assistant
DX: I10 Essential (primary) hypertension (principal); E03.9 Hypothyroidism, unspecified; R73.01 Impaired fasting glucose; E78.1 Pure hyperglyceridemia

== ENCOUNTER → 2019-06-12 | Outpatient (CLI) | payer OTHER ==
--- NOTE | 2019-06-12 11:07 | REP ---
DIAGNOSTIC MAMMOGRAM OF THE LEFT BREAST WITH 3-D TOMOSYNTHESIS AND LEFT BREAST ULTRASOUND: Patient has a history of left breast cancer. Patient reports a palpable lump in the upper left breast for the past 1 week. The area is marked on the skin with a triangular marker. 3-D tomosynthesis images performed in the MLO, mL and CC projections as well as spot compression views in the region of the palpable lump. Comparison made with prior studies, most recent of which is 08/11/2018. Moderate fibroglandular tissue is unchanged. No new mass or architectural distortion is seen. There is postsurgical architectural distortion in the left axillary region. Metallic clip is again seen in the upper outer quadrant of the left breast from a prior benign biopsy. No clustered microcalcifications are seen. Real-time sonographic evaluation of the upper right breast performed at the site of the palpable lump. There is a 3 mm cyst at that location without other evidence of cystic or solid nodule. IMPRESSION: BIRADS 2: BI-RADS/ACR category 2 mammogram. Benign Findings. No change in the mammographic appearance of the left breast. By ultrasound there is a 3 mm cyst at the site of the palpable lump at 12 o'clock left breast. No solid mass is seen. Clinical correlation and followup is recommended. Recommend followup bilateral mammogram in July 2019. This mammogram was interpreted with the aid of an FDA-approved computer-aided detection system. The patient states he/she had a clinical breast exam in 05/2019. The patient letter being requested is M2. Electronically Signed by Forest Spann MD 06/13/2019 08:38 P
== END ==
LOC: M RAD 09:29
PROVIDERS: ATTEND Nurse Practitioner Family
DX: Z85.3 Personal history of malignant neoplasm of breast (principal)
CPT/HCPCS: 76642; 77065; G0279

== ENCOUNTER → 2019-09-14 | Outpatient (CLI) | payer OTHER ==
[~2019-09-14] MED LIST changes: -COEN100C PO; -FLUO20CA19 PO; +FLUO20CA22 PO; +UBID100C6 PO
--- NOTE | 2019-09-14 10:48 | REPMRS ---
Patient History The patient states she had a clinical breast exam in 2019. Family history of pancreatic cancer at age 86 in mother. Radiation therapy of the left breast, 2009. Malignant excisional biopsy of the left breast, July 17, 2008. Benign stereotactic core biopsy of the right breast. Radiation therapy of the left breast. Taking tamoxifen for 2 years. Digital Woman Screen Mammo: September 14, 2019 - Exam #: [id number] Bilateral CC and MLO view(s) were taken. Technologist: Allison Kirkland, Technologist Prior study comparison: June 12, 2019, left breast digital mammo diagnostic unilateral, performed at [facility]. August 11, 2018, bilateral digital woman screen mammo performed at [facility]. July 13, 2017, digital woman screen mammo performed at [facility]. February 12, 2015, digital bilateral screening mammo, performed [facility]. FINDINGS: There are scattered fibroglandular densities. There is a needle biopsy marker clip again noted in each breast. There is stable contour deformity in the left breast. There is a moderate amount of residual fibroglandular tissue which is fairly symmetric. There is no interval development of dominant mass, architectural distortion, or grouped microcalcification typical of malignancy. There has been no change in the appearance of the mammogram from the prior studies. 3-D tomosynthesis shows no additional findings. Assessment: BI-RADS/ACR category 2 mammogram. Benign Findings. Recommendation Routine screening mammogram of both breasts in 1 year (for women over age 40). This mammogram was interpreted with the aid of an FDA-approved computer-aided dectection system. Electronically Signed By: Gabriele Vaughan MD 09/14/19 [id number]
== END ==
LOC: M WHC 09:23
PROVIDERS: ATTEND Internal Medicine Medical Oncology
DX: Z12.31 Encounter for screening mammogram for malignant neoplasm of breast (principal); Z85.3 Personal history of malignant neoplasm of breast

== ENCOUNTER → 2019-09-14 | Outpatient (CLI) | payer OTHER ==
--- NOTE | 2019-09-14 10:19 | REP ---
CT CHEST WITHOUT CONTRAST: Low-dose screening exam. HISTORY: Nicotine dependence. There is apparently also history of left breast malignancy. Comparison CT imaging is from December 27, 2018 PET/CT. Comparison chest CT study from July 21, 2018 is also reviewed. There is a CT study from February 23, 2018 and a PET/CT study from December 07, 2017. CT FINDINGS: There are multiple surgical clips in the left axillary soft tissues. There are old healed rib fractures noted bilaterally. There is a granulomatous calcification in the right lower lobe again noted. No new pulmonary nodule is appreciated. There is minimal subpleural fibrosis on the left anteriorly consistent with a minimal post radiation change. IMPRESSION: Lung RADS category 1 negative findings. Repeat screening exam suggested 1 year. Electronically Signed by Jr Vaughan MD 09/14/2019 10:31 A
== END ==
LOC: M RAD 08:53
PROVIDERS: ATTEND Internal Medicine Medical Oncology
DX: Z85.3 Personal history of malignant neoplasm of breast (principal); Z87.891 Personal history of nicotine dependence; J98.4 Other disorders of lung

== ENCOUNTER → 2019-09-20 | Outpatient (REF) | payer OTHER ==
[2019-09-20 17:11] LABS: BASO % 0.5 % (0.0-1.0); EOS # 0.1 10^3/uL (0.0-0.5); EOS % 1.5 % (0.0-3.0); HEMATOCRIT 34.9 % (36.0-47.0); HEMOGLOBIN 11.5 g/dl (12.0-15.5); LYMPH % 25.4 % (24.0-44.0); MEAN CORPUSCULAR VOLUME 97.2 fl (80.0-96.0); MONO # 0.4 10^3/uL (0.0-0.8); NEUTROPHILS # 2.5 10^3/uL (1.5-8.5); NEUTROPHILS % 63.3 % (36.0-66.0); PLATELET COUNT, AUTOMATED 196 10^3/uL (150-450); RED BLOOD COUNT 3.59 10^6/uL (4.00-5.40)
[2019-09-20 17:16] LABS: ALBUMIN 3.3 GM/DL (3.2-5.2); ALT/SGPT 61 U/L (12-78); BILIRUBIN,TOTAL 0.5 MG/DL (0.2-1.0); BLOOD UREA NITROGEN 13 MG/DL (7-18); CARBON DIOXIDE LEVEL 24 MEQ/L (21-32); CHLORIDE LEVEL 107 MEQ/L (98-107); CHOLESTEROL LEVEL 131 MG/DL (<200); CHOLESTEROL RISK RATIO 1.984 (<5); CREATININE FOR GFR 0.86 MG/DL (0.55-1.30); GLOMERULAR FILTRATION RATE > 60.0 (>45); GLUCOSE, FASTING 98 MG/DL (70-100); HDL CHOLESTEROL 66 MG/DL (>40); LDL CHOLESTEROL 9 MG/DL (<100); NON-HDL-C 65 MG/DL; SODIUM LEVEL 138 MEQ/L (136-145); TOTAL PROTEIN 7.1 GM/DL (6.4-8.2); TRIGLYCERIDES LEVEL 278 MG/DL (<150)
[2019-09-20 17:31] LABS: HEMOGLOBIN A1c 6.3 %
== END ==
LOC: M SFHCCAPE 07:00
PROVIDERS: ATTEND Physician Assistant
DX: E03.9 Hypothyroidism, unspecified (principal); R73.01 Impaired fasting glucose; R74.8 Abnormal levels of other serum enzymes; E78.1 Pure hyperglyceridemia; K76.0 Fatty (change of) liver, not elsewhere classified

== ENCOUNTER → 2019-10-02 | Outpatient (REF) | payer OTHER | LOC: M SFHCCAPE 10:43 | PROVIDERS: ATTEND Physician Assistant | DX: R19.7 Diarrhea, unspecified (principal) ==

== ENCOUNTER → 2019-12-19 | Outpatient (REF) | payer OTHER ==
[~2019-12-19] MED LIST changes: -LISI-672 PO; +LISI30TA4 PO
[2019-12-19 12:27] LABS: BASO % 0.2 % (0.0-1.0); EOS % 0.9 % (0.0-3.0); HEMATOCRIT 35.1 % (36.0-47.0); HEMOGLOBIN 11.4 g/dl (12.0-15.5); LYMPH # 0.9 10^3/uL (1.5-5.0); LYMPH % 19.8 % (24.0-44.0); MEAN CORPUSCULAR HEMOGLOBIN 32.2 pg (27.0-33.0); MEAN CORPUSCULAR HGB CONC 32.5 g/dl (32.0-36.5); MEAN CORPUSCULAR VOLUME 99.2 fl (80.0-96.0); MONO # 0.4 10^3/uL (0.0-0.8); MONO % 9.3 % (0.0-5.0); NEUTROPHILS # 3.1 10^3/uL (1.5-8.5); NEUTROPHILS % 69.6 % (36.0-66.0); PLATELET COUNT, AUTOMATED 175 10^3/uL (150-450); RED BLOOD COUNT 3.54 10^6/uL (4.00-5.40); WHITE BLOOD COUNT 4.4 10^3/uL (4.0-10.0)
[2019-12-19 12:56] LABS: ALBUMIN 3.2 GM/DL (3.2-5.2); ALT/SGPT 108 U/L (12-78); BILIRUBIN,DIRECT 0.2 MG/DL (0.0-0.2); BILIRUBIN,TOTAL 0.4 MG/DL (0.2-1.0); BLOOD UREA NITROGEN 15 MG/DL (7-18); CALCIUM LEVEL 8.9 MG/DL (8.8-10.2); CARBON DIOXIDE LEVEL 24 MEQ/L (21-32); CHLORIDE LEVEL 107 MEQ/L (98-107); CHOLESTEROL LEVEL 190 MG/DL (<200); CHOLESTEROL RISK RATIO 2.134 (<5); CREATININE FOR GFR 0.83 MG/DL (0.55-1.30); FREE T4 0.74 NG/DL (0.76-1.46); GLOMERULAR FILTRATION RATE > 60.0 (>45); GLUCOSE, FASTING 90 MG/DL (70-100); HDL CHOLESTEROL 89 MG/DL (>40); LDL CHOLESTEROL 74 MG/DL (<100); NON-HDL-C 101 MG/DL; POTASSIUM SERUM 4.7 MEQ/L (3.5-5.1); SODIUM LEVEL 139 MEQ/L (136-145); TOTAL PROTEIN 7.2 GM/DL (6.4-8.2); TRIGLYCERIDES LEVEL 137 MG/DL (<150)
[2019-12-19 18:38] LABS: HEMOGLOBIN A1c 5.7 %
== END ==
LOC: M SFHCCLAY 08:34
PROVIDERS: ATTEND Physician Assistant
DX: I10 Essential (primary) hypertension (principal); E03.9 Hypothyroidism, unspecified; R74.8 Abnormal levels of other serum enzymes; R73.01 Impaired fasting glucose; E78.1 Pure hyperglyceridemia; K76.0 Fatty (change of) liver, not elsewhere classified

== ENCOUNTER → 2020-01-01 | Outpatient (REF) | payer OTHER ==
[2020-01-01 12:03] LABS: ALBUMIN 3.2 GM/DL (3.2-5.2); ALT/SGPT 96 U/L (12-78); BILIRUBIN,DIRECT 0.3 MG/DL (0.0-0.2); BILIRUBIN,TOTAL 0.4 MG/DL (0.2-1.0); C REACTIVE PROTEIN QUANTITATIV < 0.30 MG/DL (0.00-0.30); TOTAL PROTEIN 7.1 GM/DL (6.4-8.2)
[2020-01-01 12:59] LABS: HEPATITIS B SURFACE ANTIGEN NEGATIVE (NEGATIVE)
[2020-01-01 13:27] LABS: HEPATITIS B CORE ANTIBODY IGM NEGATIVE (NEGATIVE)
[2020-01-01 13:43] LABS: HEPATITIS C VIRUS ABY INDEX > 11.0 INDEX (<0.8)
[2020-01-01 15:46] LABS: HEPATITIS A ANTIBODY IGM NEGATIVE (NEGATIVE)
== END ==
LOC: M SFHCCLAY 08:31
PROVIDERS: ATTEND Physician Assistant
DX: R74.8 Abnormal levels of other serum enzymes (principal)

== ENCOUNTER → 2020-01-24 | Outpatient (CLI) | payer OTHER ==
--- NOTE | 2020-01-24 10:09 | REP ---
Clinical: Abnormal liver function tests with history of breast cancer. Technique: Real time hudson scale and color ultrasound examination using curved array transducer. Findings: Liver and visualized pancreas are normal in contour, size, echogenicity without focal hepatic or pancreatic lesion identified. The gallbladder is normal and without gallstones, wall thickening or pericholecystic fluid. Gallbladder measures approximately 6.7 cm in length and 2 cm in diameter. The right kidney is normal in reniform shape without hydronephrosis and measures 10.3 x 5.2 x 3.8 cm. No ascites in the visualized right upper quadrant. Impression: Normal liver and right upper quadrant ultrasound.
== END ==
LOC: M PLAIMG 08:14
PROVIDERS: ATTEND Internal Medicine Medical Oncology
DX: C50.919 Malignant neoplasm of unspecified site of unspecified female breast (principal); R74.0 Nonspecific elevation of levels of transaminase and lactic acid dehydrogenase [LDH]

== ENCOUNTER → 2020-02-01 | Outpatient (CLI) | payer OTHER ==
[~2020-02-01] MED LIST changes: +COEN100C4 PO; -UBID100C6 PO
--- NOTE | 2020-02-08 11:59 | DEXA ---
AP SPINE L1 - L4 1.677 3.9 5.3 LT FEMUR TOTAL 0.942 -0.5 0.5 LT NECK 0.941 -0.7 0.6 RT FEMUR TOTAL 0.885 -1.0 0.1 RT NECK 0.875 -1.2 0.2 TOTAL BODY TOTAL OTHER COMMENTS: Normal bone densitometry of the spine. Normal bone densitometry of the left hip. There is low bone density of the right hip. The density of the spine has decreased 10.0% since 01/11/2018. The density of the left hip has decreased 0.2% since 01/11/2018. The density of the right hip has decreased 0.2% since 01/11/2018. The decreased density of the spine does represent a significant change. The decreased density of the left hip does not represent a significant change. The decreased density of the right hip does not represent a significant change. FOLLOW-UP: Recommendation for the next bone density exam: 2 years. TOÑA
== END ==
LOC: M WHC 13:29
PROVIDERS: ATTEND Internal Medicine Medical Oncology
DX: C50.919 Malignant neoplasm of unspecified site of unspecified female breast (principal); Z79.811 Long term (current) use of aromatase inhibitors

== ENCOUNTER → 2020-05-15 | Outpatient (REF) | payer OTHER ==
[2020-05-15 17:14] LABS: BASO % 0.4 % (0.0-1.0); EOS % 0.9 % (0.0-3.0); HEMATOCRIT 34.8 % (36.0-47.0); HEMOGLOBIN 11.1 g/dl (12.0-15.5); LYMPH # 0.7 10^3/uL (1.5-5.0); LYMPH % 16.4 % (24.0-44.0); MEAN CORPUSCULAR HEMOGLOBIN 31.5 pg (27.0-33.0); MEAN CORPUSCULAR HGB CONC 31.9 g/dl (32.0-36.5); MEAN CORPUSCULAR VOLUME 98.9 fl (80.0-96.0); MONO # 0.4 10^3/uL (0.0-0.8); MONO % 9.5 % (0.0-5.0); NEUTROPHILS # 3.3 10^3/uL (1.5-8.5); NEUTROPHILS % 72.6 % (36.0-66.0); PLATELET COUNT, AUTOMATED 204 10^3/uL (150-450); RED BLOOD COUNT 3.52 10^6/uL (4.00-5.40); WHITE BLOOD COUNT 4.5 10^3/uL (4.0-10.0)
[2020-05-15 17:22] LABS: ALT/SGPT 23 U/L (12-78); BILIRUBIN,TOTAL 0.3 MG/DL (0.2-1.0); BLOOD UREA NITROGEN 13 MG/DL (7-18); CALCIUM LEVEL 8.9 MG/DL (8.8-10.2); CARBON DIOXIDE LEVEL 27 MEQ/L (21-32); CHLORIDE LEVEL 109 MEQ/L (98-107); CHOLESTEROL LEVEL 127 MG/DL (<200); CHOLESTEROL RISK RATIO 1.814 (<5); CREATININE FOR GFR 0.72 MG/DL (0.55-1.30); FREE T4 0.88 NG/DL (0.76-1.46); GLOMERULAR FILTRATION RATE > 60.0 (>45); GLUCOSE, FASTING 89 MG/DL (70-100); HDL CHOLESTEROL 70 MG/DL (>40); LDL CHOLESTEROL 42 MG/DL (<100); NON-HDL-C 57 MG/DL; SODIUM LEVEL 141 MEQ/L (136-145); TOTAL PROTEIN 6.7 GM/DL (6.4-8.2); TRIGLYCERIDES LEVEL 77 MG/DL (<150)
[2020-05-15 17:25] LABS: FOLATE 14.7 NG/ML; VITAMIN B12 LEVEL 252 PG/ML
[2020-05-15 17:51] LABS: HEMOGLOBIN A1c 5.8 %
== END ==
LOC: M SFHCCLAY 11:39
PROVIDERS: ATTEND Physician Assistant
DX: R74.8 Abnormal levels of other serum enzymes (principal); E03.9 Hypothyroidism, unspecified

== ENCOUNTER 2020-07-18 17:26 | Inpatient (IN) | payer OTHER ==
[~2020-07-18] VITALS: Ht 172.7 cm; Wt 62.0 kg
--- NOTE | 2020-07-18 18:42 | REP ---
INDICATION: CHEST PAIN COMPARISON: None. TECHNIQUE: PA and lateral. FINDINGS: The mediastinum and cardiac silhouette are normal. The lung prado are clear and without acute consolidation, effusion, or pneumothorax. The skeletal structures are intact and normal. IMPRESSION: No acute cardiopulmonary process. <Electronically signed by Kevan Morgan > 07/18/20 [id number]
--- NOTE | 2020-07-18 18:48 | REP ---
INDICATION: trauma COMPARISON: None. TECHNIQUE: AP, lateral, bilateral oblique views of the left elbow. FINDINGS: Evaluation for injury is limited by osteopenia and degenerative changes. Lateral view suggests elevation to the anterior fat pad. Linear lucencies involving the olecranon visualized through the humerus on anterior and oblique views may represent degenerative changes versus nondisplaced fracture. While no definite acute fractures appreciated, subtle injury cannot be excluded. IMPRESSION: Limited by osteopenia and degenerative changes. Subtle acute injury cannot be excluded. Consider re-evaluation in 3-5 days if the patient remains symptomatic. <Electronically signed by Kevan Morgan > 07/18/20 [id number]
--- NOTE | 2020-07-18 18:55 | REPVR ---
PROCEDURE INFORMATION: Exam: CT Head Without Contrast Exam date and time: 07/18/2020 6:19 PM Age: 64 years old Clinical indication: Injury or trauma; Fall; Blunt trauma (contusions or hematomas) TECHNIQUE: Imaging protocol: Computed tomography of the head without contrast. Radiation optimization: All CT scans at this facility use at least one of these dose optimization techniques: automated exposure control; mA and/or kV adjustment per patient size (includes targeted exams where dose is matched to clinical indication); or iterative reconstruction. COMPARISON: No relevant prior studies available. FINDINGS: Brain: Mild parenchymal atrophy. No significant white matter disease. Mild diffuse cerebellar atrophy. Cerebral ventricles: No ventriculomegaly. Bones/joints: Unremarkable. No acute fracture. Paranasal sinuses: Visualized sinuses are unremarkable. No fluid levels. Mastoid air cells: Visualized mastoid air cells are well aerated. Soft tissues: Unremarkable. IMPRESSION: Atrophic changes as described above. No acute intracranial findings. Electronically signed by: Aki Terrell On 07/18/2020 18:55:39 PM
--- NOTE | 2020-07-18 19:01 | REPVR ---
PROCEDURE INFORMATION: Exam: CT Cervical Spine Without Contrast Exam date and time: 07/18/2020 6:19 PM Age: 64 years old Clinical indication: Injury or trauma; Fall; Blunt trauma TECHNIQUE: Imaging protocol: Computed tomography images of the cervical spine without contrast. Radiation optimization: All CT scans at this facility use at least one of these dose optimization techniques: automated exposure control; mA and/or kV adjustment per patient size (includes targeted exams where dose is matched to clinical indication); or iterative reconstruction. COMPARISON: CT Neck with contrast 08/11/2018 10:25 AM FINDINGS: Bones/joints: Reversal of normal cervical lordosis. Slight anterolisthesis of C3 on C4 likely degenerative. Clinical correlation to exclude acute ligamentous injury suggested. Discs/Spinal canal/Neural foramina: Disc space narrowing at C5-C6 through C7-T1 with intervertebral osteophytes. Mild foraminal narrowing on the right at C2, moderate foraminal narrowing on the right at C3, mild to moderate foraminal narrowing on the right at C4, moderate to severe bilateral foraminal narrowing at C5, moderate bilateral foraminal narrowing at C6, and moderate bilateral foraminal narrowing at C7 all secondary to uncinate joint hypertrophic changes. Lungs: Lung apices are normal. Soft tissues: Atrophic changes in the thyroid gland. Otherwise unremarkable. IMPRESSION: 1. Slight anterolisthesis of C3 on C4 likely degenerative. Clinical correlation to exclude acute ligamentous injury suggested. 2. Degenerative spondylosis. Electronically signed by: Aki Terrell On 07/18/2020 19:01:48 PM
[2020-07-18 19:19] LABS: BASO % 0.2 % (0.0-1.0); EOS % 0.4 % (0.0-3.0); HEMATOCRIT 34.8 % (36.0-47.0); HEMOGLOBIN 11.3 g/dl (12.0-15.5); LYMPH # 0.7 10^3/uL (1.5-5.0); LYMPH % 12.3 % (24.0-44.0); MEAN CORPUSCULAR HEMOGLOBIN 30.2 pg (27.0-33.0); MEAN CORPUSCULAR HGB CONC 32.5 g/dl (32.0-36.5); MONO # 0.6 10^3/uL (0.0-0.8); MONO % 10.6 % (0.0-5.0); NEUTROPHILS # 4.2 10^3/uL (1.5-8.5); NEUTROPHILS % 76.1 % (36.0-66.0); PLATELET COUNT, AUTOMATED 243 10^3/uL (150-450); RED BLOOD COUNT 3.74 10^6/uL (4.00-5.40); WHITE BLOOD COUNT 5.5 10^3/uL (4.0-10.0)
[2020-07-18 19:31] LABS: INR 1.21; PROTHROMBIN TIME 15.6 SECONDS (12.5-14.3)
[2020-07-18 19:32] LABS: PARTIAL THROMBOPLASTIN TIME 34.3 SECONDS (24.2-38.5)
[2020-07-18 19:51] LABS: ALBUMIN 3.6 GM/DL (3.2-5.2); ALT/SGPT 40 U/L (12-78); BILIRUBIN,DIRECT 0.5 MG/DL (0.0-0.2); BLOOD UREA NITROGEN 22 MG/DL (7-18); CARBON DIOXIDE LEVEL 24 MEQ/L (21-32); CHLORIDE LEVEL 103 MEQ/L (98-107); CK-MB VALUE MASS 2.8 NG/ML (<3.6); CPK CREATINE PHOSPHOKINASE 76 U/L (26-192); CREATININE FOR GFR 1.27 MG/DL (0.55-1.30); FREE T4 1.14 NG/DL (0.76-1.46); GLOMERULAR FILTRATION RATE 45.1 (>45); GLUCOSE, FASTING 116 MG/DL (70-100); MAGNESIUM LEVEL 1.6 MG/DL (1.8-2.4); MB/CK RELATIVE INDEX 3.68 (< OR =4); PHOSPHORUS LEVEL 3.6 MG/DL (2.5-4.9); POTASSIUM SERUM 4.2 MEQ/L (3.5-5.1); SODIUM LEVEL 137 MEQ/L (136-145); TOTAL PROTEIN 7.3 GM/DL (6.4-8.2); TROPONIN I < 0.02 NG/ML (< 0.10)
[2020-07-18] MEDS: METOPROLOL 5 MG/5 ML VIAL IV SCH ×3 (20:30→20:40)
[2020-07-18] MEDS ORDERED: LIDOCAINE W/EPINEPHRINE 1% 20ML VIAL SC ONE (20:30)
[2020-07-18] MEDS ORDERED: DERMABOND TOPICAL SKIN ADHESIVE TOP ONE (20:30)
[2020-07-18 20:32] LABS: ETHYL ALCOHOL (ETHANOL) 0.023 % (0.000-0.010)
[2020-07-18] MEDS ORDERED: METOPROLOL TART 50 MG TAB PO ONE (21:15)
[2020-07-18] MEDS ORDERED: BOOSTRIX/ADACEL VACCINE (DIPHTH/PERTUSS/ACELL/TETANUS) 0.5ML SYR IM ONE (21:15)
[2020-07-18 22:15] LABS: RSV AMPLIFICATION NEGATIVE (NEGATIVE)
[2020-07-18] MEDS ORDERED: MAGNESIUM OXIDE 400 MG TAB (MAG-OX) PO ONE (22:45)
[2020-07-18] MEDS ORDERED: LORazepam 2 MG TAB PO PRN (22:45)
[2020-07-18] MEDS ORDERED: MAALOX 30 ML SUSP *UDC PO PRN (22:45)
[2020-07-18] MEDS ORDERED: MOM 30ML SUSPENSION UDC PO PRN (22:45)
--- NOTE | 2020-07-18 22:53 | HPEPDOC ---
[facility] Medical History & Physical Date of Admission Jul 18, 2020 Date of Service: Jul 18, 2020 Primary Care Physician: MATT MORA PA-C Attending Physician: CORA COATS MD History and Physical TIME OF SERVICE: 1130pm CHIEF COMPLAINT: fall HISTORY OF PRESENT ILLNESS: This 64 yr old F presented after having two episodes of dizziness that were followed by falls today. The second fall occurred when she bent down to grain picker a carton of cigarettes that had fallen down at her work place. When she tried to stand up she noticed that her peripheral vision became dark and the next thing she knew she was on the ground. When she fell, she hit the back of her head and her left elbow. As a result of the fall she developed cuts on her elbow and on the back of her head. She didnt eat breakfast before work which is atypical for her. She denied having f/c/n/v/d, denied palpitations, denied dyspnea, denied chest pain, denied leg swelling, denied sensation of the room spinning around her or sensation of the ground moving beneath her before the fall. She has had similar episodes in the past which was attributed to low blood pressure. 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 HOME MEDICATIONS: Please see below. PHYSICAL EXAMINATION: Vital Signs Date Time Temp Pulse Resp B/P (MAP) Pulse Ox O2 Delivery O2 Flow Rate FiO2 07/18/20 17:26 97.0 136 19 127/67 (87) 100 Room Air GENERAL APPEARANCE: well-nourished /well developed /NAD HEENT: MMM&P CARDIOVASCULAR: HR irregularly irregular and tachycardic / no BLE edema LUNGS: CTAB on RA/ no cough ABDOMEN: contour flat MUSCULOSKELETAL: CHICO x4 extremities and back INTEGUMENT: she has patches of atrophic hypo pigmented scars on her neck NEUROLOGICAL: CN 2-12 grossly intact / speech not dysarthric PSYCHIATRIC: A & Ox 3 LABORATORY DATA: 07/18/20 18:41 Immature Granulocyte % (Auto) 0.4, Neutrophils (%) (Auto) 76.1H, Lymphocytes (%) (Auto) 12.3L, Monocytes (%) (Auto) 10.6H, Eosinophils (%) (Auto) 0.4, Basophils (%) (Auto) 0.2, Neutrophils # (Auto) 4.2, Lymphocytes # (Auto) 0.7L, Monocytes # (Auto) 0.6, Eosinophils # (Auto) 0.0, Basophils # (Auto) 0.0, Nucleated Red Blood Cells % (auto) 0.0, Prothrombin Time 15.6H, Prothromb Time International Ratio 1.21, Activated Partial Thromboplast Time 34.3, Anion Gap 10, Glomerular Filtration Rate 45.1, Calcium Level 9.0, Phosphorus Level 3.6, Magnesium Level 1.6L, Total Bilirubin 1.0, Direct Bilirubin 0.5H, Aspartate Amino Transf (AST/SGOT) 40H, Alanine Aminotransferase (ALT/SGPT) 40, Alkaline Phosphatase 75, Total Creatine Kinase 76, Creatine Kinase MB 2.8, Creatine Kinase MB Relative Index 3.68, Troponin I < 0.02, Total Protein 7.3, Albumin 3.6, Albumin/Globulin Ratio 1.0L, Thyroid Stimulating Hormone (TSH) 2.060, Free Thyroxine 1.14, Ethyl Alcohol Level 0.023H IMAGING: CT head IMPRESSION: Atrophic changes as described above. No acute intracranial findings. CT cervical spine IMPRESSION: 1. Slight anterolisthesis of C3 on C4 likely degenerative. Clinical correlation to exclude acute ligamentous injury suggested. 2. Degenerative spondylosis. Chest xray IMPRESSION: No acute cardiopulmonary process. Elbow xray IMPRESSION: Limited by osteopenia and degenerative changes. Subtle acute injury cannot be excluded. Consider re-evaluation in 3-5 days if the patient remains symptomatic. MICROBIOLOGY: Respiratory panel neg ASSESSMENT: Ms. Ybarra is a 64 yr old w a hx of HTN,, Hypothyroidism, SLE, Anxiety / Depression, breast cancer and Osteopenia who presented to the hospital after having syncopal resulting in an occipital skull and left elbow laceration and was found to be in rapid afib. PLAN: 1.Syncope Possible causes include brain hypoperfusion due rapid a fib, hypoglycemia because she didnt eat breakfast before work, or hypotension due to her meds, or inebriation (serum ETHO was positive) EKG afib w RVR rate 135, QTc 388, QRS 83, normal axis CT head and neck were unremarkable Reason for Admission: [place] Syncope Risk Score to determine 30-day risk of serious adverse events in patients w syncope = 3 points = medium risk Plan: admit to medical floor / telemetry / pending orthostats may order IVF / fall precautions/ if she continues to feel dizzy despite resolution of rapid afib and after r/o orthstats, the day time team may consider order MRI of the brain to r/o vertebrobasilar insufficiency 2. New onset Atrial Fibrillation Her underlying risk factors for chronic a fib include HTN and her age Possible precipitating causes of this episode of acute a fib include alcohol use or emotional stress. We will also order additional tests to r/o CT or CHF triggering rapid afib. EKG as above CHADS VASC Score to determine risk of stroke = 2 Points = AC indicated She is still in RVR despite receiving Metoprolol 50mg PO and 5mg IV Plan: telemetry / f/u serial Trops to r/o CT / order additional doses of IV Metoprolol, since she appears to have symptomatic afib (syncope) we will aim for a HR <85 / start Heparin drip pending Echo to r/o structural heart disease and mitral valvulopathy 3. Hypomagnesemia Plan: Mag oxide 4. Inebriation Serum Etho + Plan: telemetry / seizure precautions / fall precautions / Ativan per CIWA protocol/ Thiamine 100mg daily, Folic acid 1mg daily, MVI 5. Newly diagnosed Osteopenia Plan: f/u w PCP for DEXA scan if not already done / c/w Ca with vitamin D 6. Scalp and left elbow laceration Sutures and adhesive glue were applied in the ER Plan: Tramadol for pain / she will need to f/u w her PCP to have the sutures removed 7. Chronic HTN Plan: amlodipine, lisinopril 8. Hypothyroidism Plan: levothyroxine 9. NN Anemia Plan: f/u Iron studies, B12, folate, stool occult / because she is > 50 yrs of age she may need out pt referral to GI for s-scope if not already done 10. Hx of Breast cancer Plan: c/w colin-adjuvant Letrozole / f/u w Hem/Onc for surveillance as schedules 11. Anxiety / Depression Plan: paroxetine 12. Tobacco Abuse Declined nicotine patch Plan: smoking cessation education DVT Px w Lovenox Dispo: home after more than 2 midnights stay Home Medications Scheduled Amlodipine Besylate (Amlodipine Besylate) 2.5 Mg Tablet, 2.5 MG PO DAILY Apixaban (Eliquis) 5 Mg Tablet, 10 MG PO BID 2 tabs (10mg) twice daily for 7days, and then 1 tab (5mg) twice daily thereafter. Atorvastatin Calcium (Atorvastatin Calcium) 40 Mg Tablet, 40 MG PO DAILY Calcium Carbonate/Vitamin D3 (Calcium 500-Vit D3 200 Tablet) 1 Each Tablet, 1 TAB PO DAILY Folic Acid (Folic Acid) 1 Mg Tablet, 1 MG PO DAILY Letrozole (Letrozole) 2.5 Mg Tab, 2.5 MG PO DAILY Levothyroxine Sodium (Synthroid) 50 Mcg Tablet, 50 MCG PO DAILY Lisinopril (Lisinopril) 40 Mg Tablet, 40 MG PO DAILY Melatonin (Melatonin) 10 Mg Tablet, 10 MG PO QHS Multivitamins (Thera M Plus Tablet) 1 Each Tablet, 1 TAB PO DAILY Paroxetine HCl (Paroxetine HCl) 40 Mg Tablet, 40 MG PO DAILY Ubidecarenone (Coenzyme Q10) 100 Mg Cap, 100 MG PO DAILY Allergies Coded Allergies: No Known Allergies (Unverified , 01/03/18) A-FIB/CHADSVASC A-FIB History Current/History of A-Fib/PAF?: No Current PO Anticoag Therapy: No CORA COATS MD Jul 18, 2020 22:53
[2020-07-18] MEDS ORDERED: LISI40TA PO (23:08)
[2020-07-18] MEDS ORDERED: SYNT50TA PO (23:08)
[2020-07-18] MEDS ORDERED: RA M10TA PO (23:08)
[2020-07-18] MEDS ORDERED: VITMTA PO (23:08)
[2020-07-18] MEDS ORDERED: ATOR40TA75 PO (23:08)
[2020-07-18] MEDS ORDERED: OYST500T91 PO (23:08)
[2020-07-19] VITALS (7 sets, daily range): BP systolic 116–165; BP diastolic 8–104
[2020-07-19] MEDS ORDERED: traMADol 50 MG TAB PO ONE ×2 (00:30→06:30)
[2020-07-19] MEDS ORDERED: HEPARIN DRIP 25,000 UNITS in IV 1 EA IV SCH (01:14)
[2020-07-19] MEDS ORDERED: HEPARIN SOD (PORCINE) 5000UNITS/ML 1ML VIAL/SYRINGE IV ONE (01:15)
[2020-07-19] MEDS ORDERED: HEPARIN SOD (PORCINE) 5000UNITS/ML 1ML VIAL/SYRINGE IV PRN (01:15)
[2020-07-19] MEDS: RAMELTEON 8 MG TAB (ROZEREM) PO PRN ×2 (01:23→21:27)
[2020-07-19] MEDS: ACETAMINOPHEN TAB 650MG DOSE (2X325MG) PO PRN ×2 (04:19→09:18)
[2020-07-19] MEDS: LEVOTHYROXINE 50MCG TABLET (0.05MG) PO SCH (04:19)
[2020-07-19 05:35] LABS: HEMATOCRIT 35.3 % (36.0-47.0); HEMOGLOBIN 11.2 g/dl (12.0-15.5); MEAN CORPUSCULAR HGB CONC 31.7 g/dl (32.0-36.5); MEAN CORPUSCULAR VOLUME 94.6 fl (80.0-96.0); PLATELET COUNT, AUTOMATED 223 10^3/uL (150-450); RED BLOOD COUNT 3.73 10^6/uL (4.00-5.40); WHITE BLOOD COUNT 8.2 10^3/uL (4.0-10.0)
[2020-07-19 06:02] LABS: BILIRUBIN,TOTAL 0.9 MG/DL (0.2-1.0); CALCIUM LEVEL 7.9 MG/DL (8.8-10.2); CREATININE FOR GFR 1.42 MG/DL (0.55-1.30); GLOMERULAR FILTRATION RATE 39.6 (>45); MAGNESIUM LEVEL 1.6 MG/DL (1.8-2.4); POTASSIUM SERUM 3.4 MEQ/L (3.5-5.1); TOTAL PROTEIN 6.4 GM/DL (6.4-8.2)
--- NOTE | 2020-07-19 07:42 | ECGEPIP ---
[facility] - ED Test Date: 2020-07-18 Pat Name: MIKEY MORRISON Department: Room: - Gender: Female High Risk Case Manager: KENYETTA : 1955 Requested By: OSCAR Fish Order Number: [id number] Reading MD: Jennifer Thornton Measurements Intervals [place] Rate: 135 P: CO: 0 QRS: 87 QRSD: 83 T: 12 QT: 309 QTc: 463 Interpretive Statements ATRIAL FIBRILLATION WITH RAPID VENTRICULAR RESPONSE SEPTAL MYOCARDIAL INFARCTION, PROBABLY OLD No prior Electronically Signed on 07-19-2020 7:42:27 EST by Jennifer Thornton
[2020-07-19 07:52] LABS: PERCENT SATURATION 106.6 % (13.2-45.0)
[2020-07-19 09:12] LABS: INR 0.97; PROTHROMBIN TIME 13.1 SECONDS (12.5-14.3)
[2020-07-19] MEDS: MULTIVITAMINS/MINERALS THERAP 1 TAB PO SCH (09:17)
[2020-07-19] MEDS: ATORVASTATIN 20 MG TAB PO SCH (09:17)
[2020-07-19] MEDS: CALCIUM/VITAMIN D 500 MG TAB PO SCH (09:18)
[2020-07-19] MEDS: THIAMINE 100 MG TAB PO SCH ×2 (09:18→21:08)
[2020-07-19] MEDS: lisinopriL 40 MG TAB PO SCH (09:18)
[2020-07-19] MEDS: FOLIC ACID 1 MG TAB PO SCH (09:19)
[2020-07-19] MEDS: LETROZOLE 2.5 MG TAB PO SCH (09:19)
[2020-07-19] MEDS: CO-ENZYME Q10 50 MG CAP PO SCH (09:19)
[2020-07-19] MEDS: PARoxetine 20MG TABLET PO SCH (09:19)
[2020-07-19 09:46] LABS: PARTIAL THROMBOPLASTIN TIME 232.5 SECONDS (24.2-38.5)
[2020-07-19] MEDS ORDERED: MAG SULF 1GM/100ML (MAG RUN) 1 GM in IV 1 EA IV ONE (10:00)
[2020-07-19] MEDS ORDERED: POTASSIUM CHLORIDE 10 MEQ SR TABLET PO ONE (10:00)
[2020-07-19] MEDS: NS 1,000 ML IV SCH ×2 (10:17→23:35)
--- NOTE | 2020-07-19 10:53 | IPNPDOC ---
Text Note Date of Service The patient was seen on 07/19/20. NOTE SUBJECTIVE: -No acute issues overnight -Orthostatic hypotension this morning -Still bleeding from occipital lac -complaining of L arm pain GENERAL APPEARANCE: well-nourished, well developed, NAD HEENT: Has occipital laceration that is bleeding with some fresh blood and act chema bleeding soaking through towels on pillow, MMM, EOMI CARDIOVASCULAR: Continues to be irregularly irregular and tachycardic, noted murmurs, rubs or gallops LUNGS: CTAB ABDOMEN: contour flat, normoactive sounds, soft, NTND NEUROLOGICAL: CN 3-12 grossly intact, speech not dysarthric, moving all ex tremities spontaneously with full 5/5 strength and tone throughout EXT: no LE edema PSYCHIATRIC: A & Ox 3 LABORATORY DATA: WBC 8.2 Hgb 11.2 platelets 223 na 137 K 3.4 (repleted) Cr 1.42 mag 1.6 (repleted) IMAGING: CT head IMPRESSION: Atrophic changes as described above. No acute intracranial findings. CT cervical spine IMPRESSION: 1. Slight anterolisthesis of C3 on C4 likely degenerative. Clinical correlation to exclude acute ligamentous injury suggested. 2. Degenerative spondylosis. Chest xray IMPRESSION: No acute cardiopulmonary process. Elbow xray IMPRESSION: Limited by osteopenia and degenerative changes. Subtle acute injury cannot be excluded. Consider re-evaluation in 3-5 days if the patient remains symptomatic. MICROBIOLOGY: Respiratory panel neg ASSESSMENT: 64 yr old w a hx of HTN,, Hypothyroidism, SLE, Anxiety / Depression, breast cancer and Osteopenia who presented to the hospital after having syncopal resulting in an occipital skull head impact on falling and left elbow laceration and was found to be in rapid afib. PLAN: 1.Syncope Possible causes include brain hypoperfusion due rapid a fib, hypoglycemia because she didnt eat breakfast before work, or hypotension due to her meds, or inebriation (serum alc was positive) EKG afib w RVR rate 135, QTc 388, QRS 83, normal axis CT head and neck were unremarkable -telemetry -orthostatic vitals this AM --> 1L NS at 100cc/hr -fall precautions 2. New onset Atrial Fibrillation Her underlying risk factors for chronic a fib include HTN and her age Possible precipitating causes of this episode of acute a fib include alcohol use or emotional stress. - CHADS VASC Score to determine risk of stroke = 2 Points = AC indicated She is still in RVR , now improved wit rates low 100s -telemetry -negative serial Trops -currently on Heparin drip, may have to hold given significant occipital lac that is bleeding. Will continue for now and check noon H/H -pending Echo to r/o structural heart disease and mitral valvulopathy 3. Hypomagnesemia -Mag sulfate 1g x 1 4. Inebriation Serum Etho + -telemetry -seizure precautions -fall precautions -Ativan per [facility] protocol -Thiamine 100mg daily, Folic acid 1mg daily, MVI 5. Newly diagnosed Osteopenia -To f/u w PCP for DEXA scan if not already done -c/w Ca with vitamin D 6. Scalp and left elbow laceration -Sutures and adhesive glue were applied in the ER -Tramadol for pain -she will need to f/u w her PCP to have the sutures removed 7. Chronic HTN -amlodipine -lisinopril 8. Hypothyroidism -levothyroxine 9. Normocytic Anemia -f/u B12, folate, stool occult -she is > 50 yrs of age, will need out pt referral to GI for s-scope 10. Hx of Breast cancer -c/w Letrozole -f/u w outpatient Hem/Onc for surveillance as schedules 11. Anxiety / Depression -paroxetine 12. Tobacco Abuse -Declined nicotine patch -smoking cessation education 13. CAYDEN: likely prerenal -IVF -monitor daily BMP DVT ppx with heparin gtt with eventual goal to switch to noac, will monitor H/H for bleeding, given anemia for now. Dispo: home after more than 2 midnights stay Chong ASKEW I+O VSChong I+O Laboratory Tests 07/18/20 18:41 07/19/20 05:14 Vital Signs Date Time Temp Pulse Resp B/P (MAP) Pulse Ox O2 Delivery O2 Flow Rate FiO2 07/19/20 08:00 105 165/88 (113) 65 150/90 (110) 86 130/85 (100) 07/19/20 08:00 95.4 20 100 Room Air I&O- Last 24 Hours up to 6 AM 07/19/20 06:00 Intake Total 300 ml Output Total 0 ml Balance 300 ml GISELL BALLARD MD Jul 19, 2020 09:32
[2020-07-19] MEDS ORDERED: MORPHINE 2 MG/ML 1ML VIAL (J2270) IV PRN (11:15)
[2020-07-19 11:30] LABS: HEMATOCRIT 35.2 % (36.0-47.0); HEMOGLOBIN 11.6 g/dl (12.0-15.5)
[2020-07-19] MEDS: traMADol 50 MG TAB PO PRN ×2 (12:51→17:52)
[2020-07-19] MEDS: MORPHINE 2 MG/ML 1ML VIAL (J2270) IV PRN ×2 (15:35→21:10)
[2020-07-20] VITALS (8 sets, daily range): BP systolic 97–126; BP diastolic 55–81
[2020-07-20] MEDS: traMADol 50 MG TAB PO PRN ×5 (01:15→23:59)
[2020-07-20] MEDS: MORPHINE 2 MG/ML 1ML VIAL (J2270) IV PRN ×4 (03:37→21:59)
[2020-07-20] MEDS: LEVOTHYROXINE 50MCG TABLET (0.05MG) PO SCH (07:10)
[2020-07-20] MEDS: lisinopriL 40 MG TAB PO SCH (09:00)
[2020-07-20] MEDS: PARoxetine 20MG TABLET PO SCH (09:28)
[2020-07-20] MEDS: CO-ENZYME Q10 50 MG CAP PO SCH (09:28)
[2020-07-20] MEDS: CALCIUM/VITAMIN D 500 MG TAB PO SCH (09:28)
[2020-07-20] MEDS: THIAMINE 100 MG TAB PO SCH ×2 (09:28→20:06)
[2020-07-20] MEDS: MULTIVITAMINS/MINERALS THERAP 1 TAB PO SCH (09:28)
[2020-07-20] MEDS: LETROZOLE 2.5 MG TAB PO SCH (09:28)
[2020-07-20] MEDS: FOLIC ACID 1 MG TAB PO SCH (09:28)
[2020-07-20] MEDS: ATORVASTATIN 20 MG TAB PO SCH (09:28)
[2020-07-20 10:15] LABS: HEMATOCRIT 29.5 % (36.0-47.0); HEMOGLOBIN 9.8 g/dl (12.0-15.5); MEAN CORPUSCULAR HEMOGLOBIN 31.4 pg (27.0-33.0); MEAN CORPUSCULAR HGB CONC 33.2 g/dl (32.0-36.5); MEAN CORPUSCULAR VOLUME 94.6 fl (80.0-96.0); PLATELET COUNT, AUTOMATED 163 10^3/uL (150-450); RED BLOOD COUNT 3.12 10^6/uL (4.00-5.40); WHITE BLOOD COUNT 5.2 10^3/uL (4.0-10.0)
[2020-07-20 10:59] LABS: BLOOD UREA NITROGEN 11 MG/DL (7-18); CALCIUM LEVEL 8.1 MG/DL (8.8-10.2); CARBON DIOXIDE LEVEL 23 MEQ/L (21-32); CHLORIDE LEVEL 102 MEQ/L (98-107); CREATININE FOR GFR 0.73 MG/DL (0.55-1.30); GLOMERULAR FILTRATION RATE > 60.0 (>45); GLUCOSE, FASTING 126 MG/DL (70-100); MAGNESIUM LEVEL 1.4 MG/DL (1.8-2.4); POTASSIUM SERUM 3.8 MEQ/L (3.5-5.1); SODIUM LEVEL 132 MEQ/L (136-145)
[2020-07-20] MEDS: HEPARIN DRIP 25,000 UNITS in IV 1 EA IV SCH (11:06)
--- NOTE | 2020-07-20 15:26 | IPNPDOC ---
Text Note Date of Service The patient was seen on 07/20/20. NOTE SUBJECTIVE: -No acute issues overnight -Bleeding stopped now -L arm pain is better GENERAL APPEARANCE: well-nourished, well developed, NAD HEENT: Has occipital laceration that is bleeding with some fresh blood and active bleeding soaking through towels on pillow, MMM, EOMI CARDIOVASCULAR: Continues to be irregularly irregular and tachycardic, noted murmurs, rubs or gallops LUNGS: CTAB ABDOMEN: contour flat, normoactive sounds, soft, NTND NEUROLOGICAL: CN 3-12 grossly intact, speech not dysarthric, moving all extremities spontaneously with full 5/5 strength and tone throughout EXT: no LE edema PSYCHIATRIC: A & Ox 3 LABORATORY DATA: pending AM labs IMAGING: CT head IMPRESSION: Atrophic changes as described above. No acute intracranial findings. CT cervical spine IMPRESSION: 1. Slight anterolisthesis of C3 on C4 likely degenerative. Clinical correlation to exclude acute ligamentous injury suggested. 2. Degenerative spondylosis. Chest xray IMPRESSION: No acute cardiopulmonary process. Elbow xray IMPRESSION: Limited by osteopenia and degenerative changes. Subtle acute injury cannot be excluded. Consider re-evaluation in 3-5 days if the patient remains symptomatic. MICROBIOLOGY: Respiratory panel neg ASSESSMENT: 64 yr old w a hx of HTN,, Hypothyroidism, SLE, Anxiety / Depression, breast cancer and Osteopenia who presented to the hospital after having syncopal resulting in an occipital skull head impact on falling and left elbow laceration and was found to be in rapid afib. PLAN: 1.Syncope Possible causes include brain hypoperfusion due rapid a fib, hypoglycemia because she didnt eat breakfast before work, or hypotension due to her meds, or inebriation (serum alc was positive) EKG afib w RVR rate 135, QTc 388, QRS 83, normal axis CT head and neck were unremarkable -telemetry -fall precautions -restart heparin gtt without the bolus at this time now that occipital laceration has stopped bleeding 2. New onset Atrial Fibrillation Her underlying risk factors for chronic a fib include HTN and her age Possible precipitating causes of this episode of acute a fib include alcohol use or emotional stress. - CHADS VASC Score to determine risk of stroke = 2 Points = AC indicated She is still in RVR , now improved wit rates low 100s -telemetry -negative serial Trops -heparin gtt -pending Echo to r/o structural heart disease and mitral valvulopathy 3. Hypomagnesemia -Mag sulfate 1g x 1 4. Inebriation Serum Etho + -telemetry -seizure precautions -fall precautions -Ativan per [facility] protocol -Thiamine 100mg daily, Folic acid 1mg daily, MVI 5. Newly diagnosed Osteopenia -To f/u w PCP for DEXA scan if not already done -c/w Ca with vitamin D 6. Scalp and left elbow laceration -Sutures and adhesive glue were applied in the ER -Tramadol for pain -she will need to f/u w her PCP to have the sutures removed 7. Chronic HTN -amlodipine -lisinopril 8. Hypothyroidism -levothyroxine 9. Normocytic Anemia -f/u B12, folate, stool occult -she is > 50 yrs of age, will need out pt referral to GI for s-scope 10. Hx of Breast cancer -c/w Letrozole -f/u w outpatient Hem/Onc for surveillance as schedules 11. Anxiety / Depression -paroxetine 12. Tobacco Abuse -Declined nicotine patch -smoking cessation education 13. CAYDEN: likely prerenal -IVF -monitor daily BMP DVT ppx with heparin gtt with eventual goal to switch to noac, will monitor for bleeding Dispo: home after more than 2 midnights stay VS,Chong, I+O VSChong I+O Laboratory Tests 07/19/20 11:16 Vital Signs Date Time Temp Pulse Resp B/P (MAP) Pulse Ox O2 Delivery O2 Flow Rate FiO2 07/20/20 07:45 18 Room Air 07/20/20 06:00 101 109/71 07/20/20 04:00 98.1 98 07/19/20 15:35 20.0 I&O- Last 24 Hours up to 6 AM 07/20/20 06:00 Intake Total 2333 ml Output Total 450 ml Balance 1883 ml GISELL BALLARD MD Jul 20, 2020 09:35
--- NOTE | 2020-07-20 16:04 | REP ---
INDICATION: L arm pain s/p fall COMPARISON: None. TECHNIQUE: AP, lateral views of the left forearm FINDINGS: The osseous structures and joint spaces are intact and normal. There is no evidence for acute fracture or dislocation. Surrounding soft tissues are unremarkable. No subcutaneous emphysema or radiodense foreign body. IMPRESSION: No acute fracture or dislocation. <Electronically signed by Kevan Morgan > 07/20/20 1600
[2020-07-20] MEDS: HEPARIN SOD (PORCINE) 5000UNITS/ML 1ML VIAL/SYRINGE IV PRN (18:13)
[2020-07-20] MEDS ORDERED: MAG SULF 1GM/100ML (MAG RUN) 1 GM in IV 1 EA IV ONE (19:00)
[2020-07-21] VITALS: BP 125/71
[2020-07-21] MEDS: RAMELTEON 8 MG TAB (ROZEREM) PO PRN (00:54)
[2020-07-21 04:00] VITALS: BP 121/79
[2020-07-21] MEDS: MORPHINE 2 MG/ML 1ML VIAL (J2270) IV PRN (04:59)
[2020-07-21] MEDS: LEVOTHYROXINE 50MCG TABLET (0.05MG) PO SCH (05:43)
[2020-07-21 06:12] LABS: HEMATOCRIT 29.7 % (36.0-47.0); HEMOGLOBIN 9.3 g/dl (12.0-15.5); MEAN CORPUSCULAR HEMOGLOBIN 30.2 pg (27.0-33.0); MEAN CORPUSCULAR HGB CONC 31.3 g/dl (32.0-36.5); MEAN CORPUSCULAR VOLUME 96.4 fl (80.0-96.0); PLATELET COUNT, AUTOMATED 147 10^3/uL (150-450); RED BLOOD COUNT 3.08 10^6/uL (4.00-5.40); WHITE BLOOD COUNT 4.7 10^3/uL (4.0-10.0)
[2020-07-21 06:41] LABS: BLOOD UREA NITROGEN 7 MG/DL (7-18); CALCIUM LEVEL 8.2 MG/DL (8.8-10.2); CARBON DIOXIDE LEVEL 24 MEQ/L (21-32); CHLORIDE LEVEL 102 MEQ/L (98-107); CREATININE FOR GFR 0.74 MG/DL (0.55-1.30); GLOMERULAR FILTRATION RATE > 60.0 (>45); GLUCOSE, FASTING 142 MG/DL (70-100); POTASSIUM SERUM 3.7 MEQ/L (3.5-5.1); SODIUM LEVEL 134 MEQ/L (136-145)
[2020-07-21] MEDS: HEPARIN SOD (PORCINE) 5000UNITS/ML 1ML VIAL/SYRINGE IV PRN (06:55)
[2020-07-21] MEDS: HEPARIN DRIP 25,000 UNITS in IV 1 EA IV SCH (06:56)
[2020-07-21 08:00] VITALS: BP 116/60
[2020-07-21] MEDS ORDERED: APIXABAN 5 MG TAB (ELIQUIS) PO SCH (09:00)
[2020-07-21] MEDS: ATORVASTATIN 20 MG TAB PO SCH (09:09)
[2020-07-21] MEDS: CO-ENZYME Q10 50 MG CAP PO SCH (09:09)
[2020-07-21] MEDS: PARoxetine 20MG TABLET PO SCH (09:09)
[2020-07-21 09:10] VITALS: BP 116/60
[2020-07-21] MEDS: traMADol 50 MG TAB PO PRN (09:10)
[2020-07-21] MEDS: MULTIVITAMINS/MINERALS THERAP 1 TAB PO SCH (09:10)
[2020-07-21] MEDS: lisinopriL 40 MG TAB PO SCH (09:11)
[2020-07-21] MEDS: THIAMINE 100 MG TAB PO SCH (09:11)
[2020-07-21] MEDS: CALCIUM/VITAMIN D 500 MG TAB PO SCH (09:11)
[2020-07-21] MEDS: LETROZOLE 2.5 MG TAB PO SCH (09:11)
[2020-07-21] MEDS: FOLIC ACID 1 MG TAB PO SCH (09:11)
[2020-07-21] MEDS ORDERED: ELIQ5TAB PO (11:25)
[2020-07-21] MEDS ORDERED: FOLI1TAB11 PO (11:31)
--- NOTE | 2020-07-21 11:56 | DS.PDOC ---
Discharge Summary General Date of Admission Jul 18, 2020 at 22:45 Date of Discharge 07/21/2020 Attending Physician: GISELL BALLARD MD Discharge Summary PROCEDURES PERFORMED DURING STAY: None ADMITTING DIAGNOSES: 1. New onset Afib w/ RVR DISCHARGE DIAGNOSES: New onset Afib w/ RVR Syncope Dehydration CAYDEN Hypomagnesemia Chronic HTN Syncope 2/2 hypotension DLP Hypothyroidism SLE (quiescent not on meds) Anxiety / Depression Stage IIa AR+ HER2/BAKARI left breast invasive ductal adenocarcinoma with isolated reoccurrence to the LN s/p lumpectomy & external beam radiation to the LN on letrozole Osteopenia COMPLICATIONS/CHIEF COMPLAINT: Afib With Rvr, Syncope. HISTORY OF PRESENT ILLNESS: 64 yr old W presented after having two episodes of dizziness that were followed by falls on the day of admission and when she fell, she hit the back of her head and her left elbow. As a result of the fall she developed cuts on her elbow and on the back of her head. She denied having f/c/n/v/d, denied palpitations, denied dyspnea, denied chest pain, denied leg swelling, denied sensation of the room spinning around her or sensation of the ground moving beneath her before the fall. She has had similar episodes in the past which was attributed to low blood pressure. HOSPITAL COURSE: 1.Syncope Possible causes included brain hypoperfusion due rapid a fib, hypoglycemia because she didnt eat breakfast before work that day, or hypotension due to her meds and low PO/dehydration, or inebriation (serum alcohol was positive) -EKG showed afib w RVR rate 135, QTc 388, QRS 83, normal axis -CT head and neck were unremarkable -telemetry showed persistent Afib 2. New onset Atrial Fibrillation: Her underlying risk factors for chronic a fib include HTN and her age Possible precipitating causes of this episode of acute a fib include alcohol use or emotional stress. - CHADS VASC Score to determine risk of stroke = 2 Points = AC indicated -Rate controlled now -She had negative serial Troponins -She had an Echo to r/o structural heart disease and mitral valvulopathy that was completed, but official is still pending at the time of discharge. -She was initially placed on a heparin gtt but course was c/b occipital laceration bleeding such that heparin was briefly stopped. On restarting she did well without further bleeding and is now being transitioned to eliquis for home discharge. 3. Hypomagnesemia: was repleted. Resolved 4. Inebriation: Serum ethanol was positive and she was placed on CIWA protocol and started on thiamine, folate and multivitamin. 5. Newly diagnosed Osteopenia: To f/u w PCP for DEXA scan and continue with Ca with vitamin D 6. Scalp and left elbow laceration: Sutures and adhesive glue were applied in the ER. She will need to f/u w her PCP to have the sutures removed 7. Chronic HTN: Continue amlodipine and lisinopril 8. Hypothyroidism: continued levothyroxine 9. Hx of Breast cancer: continued her Letrozole and to follow up with outpatient Hem/Onc for surveillance as scheduled 10. Anxiety / Depression: continued home paroxetine 11. Tobacco Abuse: Declined nicotine patch. Was provided smoking cessation education 12. CAYDEN: Prerenal, resolved after IVF DISCHARGE MEDICATIONS: Please see below. ALLERGIES: Please see below. PHYSICAL EXAMINATION ON DISCHARGE: VITAL SIGNS: Please see below. GENERAL APPEARANCE: well-nourished, well developed, NAD HEENT: Has occipital laceration that is no longer bleeding with some clotted over blood without active bleeding, MMM, EOMI CARDIOVASCULAR: Continues to be irregularly irregular and tachycardic, noted murmurs, rubs or gallops LUNGS: CTAB ABDOMEN: contour flat, normoactive sounds, soft, NTND NEUROLOGICAL: CN 3-12 grossly intact, speech not dysarthric, moving all extremities spontaneously with full 5/5 strength and tone throughout EXT: no LE edema PSYCHIATRIC: A & Ox 3 LABORATORY DATA: see below IMAGING: CT head IMPRESSION: Atrophic changes as described above. No acute intracranial findings. CT cervical spine IMPRESSION: 1. Slight anterolisthesis of C3 on C4 likely degenerative. Clinical correlation to exclude acute ligamentous injury suggested. 2. Degenerative spondylosis. Chest xray IMPRESSION: No acute cardiopulmonary process. Elbow xray IMPRESSION: Limited by osteopenia and degenerative changes. Subtle acute injury cannot be excluded. Consider re-evaluation in 3-5 days if the patient remains symptomatic. PROGNOSIS: Good ACTIVITY: As tolerated. DIET: 2g sodium DISCHARGE PLAN: Home with PCP follow up DISPOSITION: Home DISCHARGE INSTRUCTIONS: 1. Home with PCP follow up ITEMS TO FOLLOWUP ON ON OUTPATIENT: 1. Home with PCP follow up DISCHARGE CONDITION: Stable TIME SPENT ON DISCHARGE: 46 minutes. Vital Signs/I&Os Vital Signs Date Time Temp Pulse Resp B/P (MAP) Pulse Ox O2 Delivery O2 Flow Rate FiO2 07/21/20 09:40 17 07/21/20 09:10 135 116/60 07/21/20 08:00 97.2 98 Room Air 07/19/20 15:35 20.0 I&O- Last 24 Hours up to 6 AM 07/21/20 06:00 Intake Total 2447 ml Output Total 700 ml Balance 1747 ml Laboratory Data Labs 24H Laboratory Tests 2 07/20/20 17:08: Activated Partial Thromboplast Time 62.5H 07/21/20 00:19: Activated Partial Thromboplast Time 127.3*H 07/21/20 06:00: Activated Partial Thromboplast Time 58.2H, Nucleated Red Blood Cells % (auto) 0.0, Anion Gap 8, Glomerular Filtration Rate > 60.0, Calcium Level 8.2L CBC/BMP Laboratory Tests 07/21/20 06:00 Discharge Medications Scheduled Amlodipine Besylate (Amlodipine Besylate) 2.5 Mg Tablet, 2.5 MG PO DAILY, (Reported) Apixaban (Eliquis) 5 Mg Tablet, 10 MG PO BID 2 tabs (10mg) twice daily for 7days, and then 1 tab (5mg) twice daily thereafter. Atorvastatin Calcium (Atorvastatin Calcium) 40 Mg Tablet, 40 MG PO DAILY, (Reported) Calcium Carbonate/Vitamin D3 (Calcium 500-Vit D3 200 Tablet) 1 Each Tablet, 1 TAB PO DAILY, (Reported) Folic Acid (Folic Acid) 1 Mg Tablet, 1 MG PO DAILY Letrozole (Letrozole) 2.5 Mg Tab, 2.5 MG PO DAILY, (Reported) Levothyroxine Sodium (Synthroid) 50 Mcg Tablet, 50 MCG PO DAILY, (Reported) Lisinopril (Lisinopril) 40 Mg Tablet, 40 MG PO DAILY, (Reported) Melatonin (Melatonin) 10 Mg Tablet, 10 MG PO QHS, (Reported) Multivitamins (Thera M Plus Tablet) 1 Each Tablet, 1 TAB PO DAILY, (Reported) Paroxetine HCl (Paroxetine HCl) 40 Mg Tablet, 40 MG PO DAILY, (Reported) Ubidecarenone (Coenzyme Q10) 100 Mg Cap, 100 MG PO DAILY, (Reported) Allergies Coded Allergies: No Known Allergies (Unverified , 01/03/18) GISELL BALLARD MD Jul 21, 2020 11:56
[2020-07-22 10:40] LABS: FOLATE 17.5 NG/ML (>5.4)
--- NOTE | 2020-07-24 12:01 | ECHO ---
DATE OF PROCEDURE: 07/20/2020 Age: 64 Gender: Female Height: 68 inches Weight: 135 pounds REFERRING PHYSICIAN: Lyndsay Heredia MD INDICATION: Atrial fibrillation. MEASUREMENTS: 2D Measurements: Aortic root 3.0 cm Left atrium 4.4 cm Left atrial volume index 58 cm Left ventricle diastole 4.5 cm Intraventricular septum 0.88 cm Posterior wall 0.96 cm Inferior vena cava 1.5 cm Doppler Measurements: No aortic stenosis No aortic regurgitation Aortic valve velocity 121 cm/s LVOT velocity 108 cm/s LVOT VTI 18.8 cm Very mild mitral regurgitation No mitral stenosis Mild tricuspid regurgitation Estimated right ventricular systolic pressure 30-35 mmHg Estimated right atrial pressure 5-10 mmHg No pulmonic regurgitation DESCRIPTION: Rhythm was atrial fibrillation with moderately rapid ventricular response. This was a moderately technically difficult echocardiogram. No pericardial effusion. This was a 2D, M-mode, color flow Doppler, and pulsed wave Doppler examination including mitral annular tissue Doppler. CONCLUSIONS: * Mildly hyperdynamic LV systolic function. Left ventricle ejection fraction 75% by visual estimate. No regional wall motion abnormalities of the left ventricle. Normal LV size and wall thickness. Unable to adequately assess LV diastolic function in the setting of atrial fibrillation. * Mild left atrial dilatation by AP dimension versus severe left atrial dilatation by left atrial volume index. * Moderate mitral annular calcification. Very mild mitral regurgitation. No mitral stenosis. * Mild aortic valve sclerosis of a 3-cuspid aortic valve. No aortic regurgitation. * Suggestive of estimated right ventricle systolic pressure to be near the upper limits of normal to mildly elevated. Mild tricuspid regurgitation. Normal right ventricle size and systolic function. * Moderately technically difficult echocardiogram. [facility]
== END 2020-07-21 13:14 | disposition home or self-care (01) | DRG 201 ==
LOC: M ED 17:26 → M ED INP 22:45 → ENRESERV 07-19 00:16 → M PCU 07-19 00:55
PROVIDERS: ADMIT Internal Medicine; ATTEND Internal Medicine
DX: I48.91 Unspecified atrial fibrillation (principal); N17.9 Acute kidney failure, unspecified; I95.9 Hypotension, unspecified; E83.42 Hypomagnesemia; E03.9 Hypothyroidism, unspecified; E86.0 Dehydration; I10 Essential (primary) hypertension; F41.9 Anxiety disorder, unspecified; F32.9 Major depressive disorder, single episode, unspecified; R55 Syncope and collapse; Z85.3 Personal history of malignant neoplasm of breast; F17.200 Nicotine dependence, unspecified, uncomplicated; Z79.899 Other long term (current) drug therapy; D64.9 Anemia, unspecified

== ENCOUNTER → 2020-08-15 | Outpatient (REF) | payer MEDICARE, OTHER ==
[~2020-08-15] MED LIST changes: +ATEN50TA2 PO; +ATOR40TA75 PO; +ELIQ5TAB PO; +FOLI1TAB11 PO; +LEVO25TA34 PO; -LISI-542 PO; +LISI-898 PO; +LISI10TA22 PO; -LISI40TA PO; +LISI40TA4 PO; +OYST500T91 PO; +RA M10TA PO; +SYNT50TA PO; +VITMTA PO
== END ==
LOC: M SFHCCLAY 11:26
PROVIDERS: ATTEND Physician Assistant
DX: Z12.4 Encounter for screening for malignant neoplasm of cervix (principal); R87.610 Atypical squamous cells of undetermined significance on cytologic smear of cervix (ASC-US)
CPT/HCPCS: 87624; G0123

== ENCOUNTER → 2020-08-15 | Outpatient (CLI) | payer MEDICARE, OTHER ==
--- NOTE | 2020-08-15 11:52 | REP ---
INDICATION: LEFT ELBOW PAIN; S/P FALL COMPARISON: 07/18/2020. TECHNIQUE: Four views left elbow. FINDINGS: There is a fracture of the olecranon which is displaced proximally. There is associated soft tissue swelling in this region. No other acute fracture or dislocation is seen. There is narrowing of the medial joint with subchondral sclerosis and spurring. IMPRESSION: Fracture of the olecranon with displacement proximally. <Electronically signed by Forest Spann > 08/15/20 [id number]
--- NOTE | 2020-08-15 11:53 | REP ---
INDICATION: LEFT ELBOW PAIN; S/P FALL COMPARISON: None. TECHNIQUE: Two views left humerus. FINDINGS: There is a fracture of the olecranon with proximal displacement. No other acute fracture or dislocation is seen. There are metallic clips in the left axilla. IMPRESSION: Olecranon fracture with proximal displacement. <Electronically signed by Forest Spann > 08/15/20 [id number]
--- NOTE | 2020-08-15 11:56 | REP ---
INDICATION: LEFT ELBOW PAIN; S/P FALL COMPARISON: None. TECHNIQUE: AP and lateral views left forearm. FINDINGS: There is a fracture of the olecranon with proximal displacement. No other acute fracture or dislocation is seen. Oval calcific density along the dorsal carpal region may represent an old triquetral fracture. IMPRESSION: Olecranon fracture with proximal displacement. <Electronically signed by Forset Spann > 08/15/20 [id number]
== END ==
LOC: M CLY 11:16
PROVIDERS: ATTEND Physician Assistant
DX: S52.022A Displaced fracture of olecranon process without intraarticular extension of left ulna, initial encounter for closed fracture (principal); W19.XXXA Unspecified fall, initial encounter

== ENCOUNTER → 2020-08-23 | Outpatient (CLI) | payer OTHER ==
[~2020-08-23] MED LIST changes: -LEVO25TA34 PO
== END ==
LOC: M LABSMTC 10:00
PROVIDERS: ATTEND Anesthesiology
DX: Z01.812 Encounter for preprocedural laboratory examination (principal); Z20.822 Contact with and (suspected) exposure to COVID-19

== ENCOUNTER → 2020-10-07 | Outpatient (CLI) | payer MEDICARE, OTHER ==
[~2020-10-07] MED LIST changes: +ISOVUE-370 76% 100ML VIAL As Ordered ONE; +LEVO25TA34 PO
--- NOTE | 2020-10-09 04:52 | REP ---
INDICATION: METASTATIC BREAST CA COMPARISON: 09/14/2019 TECHNIQUE: Axial contrast enhanced images from the thoracic inlet to the upper abdomen with coronal and sagittal reformations using 75 ml Isovue 370 intravenous contrast material. This CT examination was performed using the following dose reduction techniques: Automated exposure control, adjustment of mA and/or kv according to the patient's size, and use of iterative reconstruction technique. FINDINGS: The bilateral lung prado demonstrate mild chronic age-related changes similar to prior examination including subtle subpleural fibrosis along the left anterior lung zone which may be related to prior therapy. There is a very small subpleural density in the left posterior sulcus (series 201 images 90-95) along with subtle posterior basilar ground-glass opacities. While these findings may represent dependent change, the left-sided subpleural density may warrant follow-up. No further area of consolidation, significant nodule or mass lesion. No pleural effusion. No pneumothorax. Tracheobronchial tree is patent. Mediastinum demonstrates nonspecific lymph nodes. Thoracic aorta, pulmonary vasculature, and heart/pericardium are relatively normal/stable. Surrounding musculoskeletal structures are intact and without obvious osseous lesion. Old healed right rib fractures noted. The upper abdomen demonstrates somewhat suspicious clustering of adenopathy and there is a somewhat irregular appearing area at the tail of the pancreas. These findings are highly suspicious and warrant pre and postcontrast CT of the abdomen. IMPRESSION: 1. Small subpleural density in the posterior left lower lobe sulcus may represent transient dependent atelectasis although follow-up is recommended given the patient's history of metastatic breast cancer. 2. Upper abdomen demonstrates suspicious adenopathy as well as a possible lesion involving the tail of the pancreas. Further investigation including pre and postcontrast CT of the abdomen and pelvis is recommended. <Electronically signed by Kevan Morgan > 10/09/20 044
== END ==
LOC: M RAD 13:15
PROVIDERS: ATTEND Specialist
DX: C50.919 Malignant neoplasm of unspecified site of unspecified female breast (principal)
CPT/HCPCS: 71260; Q9967

== ENCOUNTER → 2020-10-09 | Outpatient (REF) | payer MEDICARE, OTHER ==
[~2020-10-09] MED LIST changes: -ISOVUE-370 76% 100ML VIAL As Ordered ONE
== END ==
LOC: M LABDRAWC 15:52
PROVIDERS: ATTEND Internal Medicine Cardiovascular Disease
DX: I48.19 Other persistent atrial fibrillation (principal)

== ENCOUNTER → 2020-10-18 | Outpatient (CLI) | payer MEDICARE, OTHER ==
[~2020-10-18] MED LIST changes: +FLEC25TA PO
--- NOTE | 2020-10-18 15:23 | REP ---
INDICATION: F/U FX. COMPARISON: 08/15/2020. TECHNIQUE: Three views left elbow. FINDINGS: Displaced olecranon fracture is again noted. Once again the olecranon is displaced superiorly behind the distal humerus, with some increase since the prior study. No other new findings are seen. IMPRESSION: Increased displacement of previously noted olecranon fracture. <Electronically signed by Forest Spann > 10/18/20 [id number]
== END ==
LOC: M SOG 11:18
PROVIDERS: ATTEND Orthopaedic Surgery Sports Medicine
DX: S52.022A Displaced fracture of olecranon process without intraarticular extension of left ulna, initial encounter for closed fracture (principal); X58.XXXA Exposure to other specified factors, initial encounter; Y92.89 Other specified places as the place of occurrence of the external cause; Y93.89 Activity, other specified; Y99.8 Other external cause status

== ENCOUNTER → 2020-10-25 | Outpatient (CLI) | payer MEDICARE, OTHER ==
[~2020-10-25] MED LIST changes: +GASTROGRAFIN SOLUTION 30ML (Q9963) As Ordered ONE; +ISOVUE-370 76% 100ML VIAL As Ordered ONE
--- NOTE | 2020-10-25 17:47 | REP ---
INDICATION: PANCREATIC TAIL MASS, BREAST CA. COMPARISON: CT CHEST 10/07/2020, ABDOMEN/PELVIS 07/21/2018. TECHNIQUE: CT abdomen and pelvis performed without IV contrast but with oral Gastrografin mixture per our protocol. CT abdomen pelvis performed with IV contrast as well, following intravenous administration of 100 cc of Isovue 370. Arterial venous and delayed images were obtained through the abdomen and venous images in the pelvis. Sagittal, coronal and 3D MIP reconstruction images are performed. FINDINGS: CT abdomen: The lung bases show some minor dependent atelectatic change. There are small bilateral Bochdalek hernias with omental fat posteriorly along the diaphragmatic surfaces. Heart size unchanged. No pericardial thickening or effusion. No hiatal hernia. The liver shows subtle hypodensity but a cm on venous images seen slightly better on delayed images and very poorly on arterial phase imaging. It is not visible on the noncontrast exam it is located in the sub capsular region right hepatic lobe laterally and inferiorly. I do not see other liver lesions, hepatomegaly, biliary dilatation or adjacent ascites. Gallbladder without calcified stone or mass adrenal glands are unremarkable kidneys show an exophytic cyst laterally lower pole on the right about 10 mm. There are other cortical sub cm cysts the right kidney there is no hydronephrosis. I see no definite renal stone on the right and a 3 mm calcification lower pole pyramid on the left, stable. Pancreatic head neck and body region were grossly intact without dilated duct the tail the pancreas subtle heterogeneous low-density a zone at the most peripheral aspect of the tail. On the previous exam in September was some infiltration of fat adjacent to the pancreatic tail which is improved/resolved on the current exam. There are periaortic nodes up to 10 mm in short axis deep to the left main renal artery and another between that renal artery and left renal vein about 8 mm. Other 4-6 mm periaortic and retroperitoneal nodes are seen I do not see nodes adjacent to the pancreas there is a small splenule near the pancreatic tail which is unchanged. The splenic flexure near the pancreatic tail shows no diverticulosis or evidence for diverticulitis/colitis. Adrenal glands symmetric and without acute finding. Stomach with oral contrast within. No gross hiatal hernia. No generalized ascites. The lung windows show no perforation or free air in the abdomen or pelvis. Remainder of colon and small bowel in the abdomen proper shows no evidence of acute inflammatory process. No inflammatory changes about the cecum. There are advanced degenerative disc changes at L1-2 is extensive sclerosis along the endplates and disc space narrowing from L1-2 through L4-5 with no narrowing at L5-S1. No compression fractures spondylolysis or destructive lesion. Visualized ribs grossly intact. CT pelvis: Sacrum, SI joints, iliac bones acetabular the ischia and hips with minor degenerative changes and no fracture. There is no ventral or inguinal hernia nor pathologic sized inguinal adenopathy. Ureters show normal course the bladder without dilatation or stone bladder is well filled without mass, wall thickening or stone uterus anteverted not enlarged no pelvic mass, adenopathy or free fluid distal left colon sigmoid and rectum without acute phlegm a idalia change. Small bowel loops contrast filled but without abnormal dilatation or inflammatory changes. IMPRESSION: 1. Stable hypodense lesion in the right lobe of the liver in the subcu capsular region for the past 27 months. No suspicious liver finding. 2. There is a nonspecific low-density area in the tail of the pancreas similar to the previous chest CT study 10/07/2020. However the subtle inflammatory changes in the fat adjacent the tail the pancreas are resolved. There is some periaortic and other retroperitoneal lymphadenopathy noted these nodes previously seen but smaller. Although I suspect acute inflammatory change in the tail the pancreas from focal pancreatitis this area should be watched closely given lymphadenopathy. I have suggested a follow-up in 3 months time. 3. Spleen, gallbladder, kidneys, adrenal glands, colon and small bowel loops without acute findings. The appear stable. 4. Degenerative changes throughout the spine I do not see any definite evidence for lytic or blastic metastatic disease in the bones. 5. Solitary 3-4 mm calcification lower pole left kidney and exophytic small cyst right kidney stable. <Electronically signed by Medhat Ventura > 10/25/20 [id number]
== END ==
LOC: M RAD 14:25
PROVIDERS: ATTEND Specialist
DX: K76.89 Other specified diseases of liver (principal); N20.0 Calculus of kidney; N27.1 Small kidney, bilateral; C50.919 Malignant neoplasm of unspecified site of unspecified female breast
CPT/HCPCS: 74178; Q9963; Q9967

== ENCOUNTER → 2020-11-06 | Outpatient (CLI) | payer MEDICARE, OTHER ==
[~2020-11-06] MED LIST changes: -GASTROGRAFIN SOLUTION 30ML (Q9963) As Ordered ONE; +HYDR-3715 PO; -ISOVUE-370 76% 100ML VIAL As Ordered ONE
[2020-11-06 16:21] LABS: HEMOGLOBIN 13.6 g/dl (12.0-15.5); MEAN CORPUSCULAR HEMOGLOBIN 30.7 pg (27.0-33.0); MEAN CORPUSCULAR HGB CONC 32.4 g/dl (32.0-36.5); MEAN CORPUSCULAR VOLUME 94.8 fl (80.0-96.0); PLATELET COUNT, AUTOMATED 155 10^3/uL (150-450); RED BLOOD COUNT 4.43 10^6/uL (4.00-5.40); WHITE BLOOD COUNT 5.3 10^3/uL (4.0-10.0)
[2020-11-06 16:30] LABS: INR 1.26; PROTHROMBIN TIME 16.1 SECONDS (12.5-14.3)
[2020-11-06 16:31] LABS: PARTIAL THROMBOPLASTIN TIME 32.5 SECONDS (24.2-38.5)
--- NOTE | 2020-11-06 16:52 | REP ---
INDICATION: CARDIAC HX;PRE-OP;LEFT OLECRANON OPEN REDUCTION INTERNAL FIX. COMPARISON: None. TECHNIQUE: PA and lateral chest FINDINGS: The cardiovascular silhouette within normal limits. The lungs are clear. Mediastinum and bony thorax are unremarkable IMPRESSION: Normal chest. <Electronically signed by Hernán Sauer > 11/06/20 [id number]
[2020-11-06 17:13] LABS: GLOMERULAR FILTRATION RATE 59.2 (>45); POTASSIUM SERUM 3.7 MEQ/L (3.5-5.1)
[2020-11-06 17:14] LABS: CALCIUM LEVEL 9.7 MG/DL (8.8-10.2)
== END ==
LOC: M CLY 13:19
PROVIDERS: ATTEND Orthopaedic Surgery Sports Medicine
DX: Z01.818 Encounter for other preprocedural examination (principal); S52.022A Displaced fracture of olecranon process without intraarticular extension of left ulna, initial encounter for closed fracture; X58.XXXA Exposure to other specified factors, initial encounter; Y92.9 Unspecified place or not applicable; Y99.9 Unspecified external cause status; I48.11 Longstanding persistent atrial fibrillation
CPT/HCPCS: 36415; 71046; 80048; 85027; 85610; 85730; G0463

== ENCOUNTER → 2020-11-08 | Outpatient (CLI) | payer MEDICARE, OTHER ==
[~2020-11-08] MED LIST changes: -HYDR-3715 PO
== END ==
LOC: M LABSMTC 10:46
PROVIDERS: ATTEND Anesthesiology
DX: Z01.812 Encounter for preprocedural laboratory examination (principal); Z20.822 Contact with and (suspected) exposure to COVID-19

== ENCOUNTER 2020-11-13 07:56 | Observation (INO) | payer MEDICARE, OTHER ==
[~2020-11-13] VITALS: Ht 175.3 cm; Wt 63.0 kg
[~2020-11-13 07:56] MED LIST changes: +LR 1,000 ML IV ONE; +ceFAZolin SOD 2 GM in IV 1 EA IV ONE
[2020-11-13] MEDS ORDERED: ACETAMINOPHEN 1000MG 100ML IV BTL (OFIRMEV) (J0131 PER 10MG) As Ordered ONE (08:08)
[2020-11-13] MEDS ORDERED: ROCURONIUM BROMIDE 50 MG/5 ML VIAL As Ordered ONE (08:08)
[2020-11-13] MEDS ORDERED: KETOROLAC 60MG 2ML VIAL As Ordered ONE (08:08)
[2020-11-13] MEDS ORDERED: LIDOCAINE 2% 100MG/5ML SDV (FOR ANES.) As Ordered ONE (08:08)
[2020-11-13] MEDS ORDERED: propofoL 200 MG/20 ML VIAL As Ordered ONE (08:08)
[2020-11-13] MEDS ORDERED: dexameTHASONE 4 MG/ML 1ML VIAL (J1100 PER 1MG) As Ordered ONE (08:08)
[2020-11-13] MEDS ORDERED: fentaNYL 100 MCG/2 ML INJECTION (J3010) As Ordered ONE ×2 (08:08→12:04)
[2020-11-13] MEDS ORDERED: ONDANSETRON 4MG/2ML VIAL As Ordered ONE (08:08)
[2020-11-13] MEDS ORDERED: SUGAMMADEX SODIUM 500 MG/5 ML VIAL (BRIDION) As Ordered ONE (08:08)
[2020-11-13] MEDS ORDERED: MIDAZOLAM INJ 2MG/2ML VIAL (J2250 PER 1MG) As Ordered ONE (08:09)
[2020-11-13] MEDS ORDERED: BUPIVACAINE HCL 0.5% 30 ML VIAL As Ordered ONE (09:07)
[2020-11-13] MEDS ORDERED: HYDROmorphone HCL 2 MG/ML 1ML VIAL (J1170) As Ordered ONE (10:36)
[2020-11-13] MEDS: fentaNYL 100 MCG/2 ML INJECTION (J3010) IV PRN ×4 (12:05→12:22)
[2020-11-13] MEDS ORDERED: MAALOX 30 ML SUSP *UDC PO PRN (12:15)
[2020-11-13] MEDS ORDERED: LR 1,000 ML IV SCH ×2 (12:15)
[2020-11-13] MEDS ORDERED: ONDANSETRON 4MG/2ML VIAL IV PRN (12:15)
[2020-11-13] MEDS ORDERED: ACETAMINOPHEN 500 MG TAB PO PRN ×2 (12:15→15:35)
[2020-11-13] MEDS ORDERED: ACETAMINOPHEN TAB 650MG DOSE (2X325MG) PO PRN (12:15)
[2020-11-13] MEDS ORDERED: MOM 30ML SUSPENSION UDC PO PRN (12:15)
[2020-11-13] MEDS ORDERED: NORCO, ANEXSIA 5/325MG TABLET (HYDROcodone/ACETAMINOPHEN) PO PRN ×2 (12:15→15:35)
[2020-11-13] MEDS: oxyCODONE 5MG TAB PO PRN ×2 (12:21→12:58)
--- NOTE | 2020-11-13 12:27 | ROOPDOC ---
[facility] Report Of Operation Report of Operation DATE OF PROCEDURE: 11/13/20 PREPROCEDURE DIAGNOSES: Left olecranon fracture nonunion. POSTPROCEDURE DIAGNOSES: Same. PROCEDURE: Left olecranon open reduction internal fixation release of adhesions. SURGEON: Dr. Jacque Phillips MD PROGRAMS ASSISTANT: MD William ANESTHESIA: Gen. anesthetic Dr valerio. ESTIMATED BLOOD LOSS: Approximately 50 mL. COMPLICATIONS: None. REMARKS: None. PROCEDURE NOTE: This 65-year-old female had a left olecranon fracture. Her surgery was delayed by cardiac complications. She was to go ahead with open reduction internal fixation. I explained the pros and cons and risks and benefits of nonoperative management versus surgical fixation. She wished to go ahead and no further questions and marked the left upper extremity and proceeded to surgery.. DESCRIPTION OF PROCEDURE: Patient was brought to the operating theater. There placed supine on the operating room table. General anesthesia was induced. All bony prominences appropriately padded. 2 g of IV Ancef was administered prior to surgery case. Left upper extremity was prepped and draped in the usual sterile fashion. Chlorhexidine-based prep solution was allowed to thoroughly dry over 3 minutes prior to draping. Bed was turned 90. Tourniquet was applied and a sterile fashion to left upper extremity. Preoperative timeout was performed to c onfirm site the patient and surgery. Began by elevating the limb and inflating the tourniquet to 250 mmHg. Made a standard posterior working incision to the proximal aspect of the ulna. I carried this laterally around the ulna tip. Carried dissection down through skin and subcutaneous tissue achieving meticulous hemostasis. I identified the fracture nonunion site. I took down callus thoroughly irrigated the joint. I worked anterior and posteriorly to the triceps to try and decrease any scar tissue as well as fully mobilized the joint. The elbow is still stiff she is able to get full extension however flexion was difficult past 95 with the fracture reduced. I reestablished the canal on both sides as well as using a rongeur to establish a bleeding bed of bone on both sides of the fracture. I achieved a preliminary reduction using extension of the elbow as well as small 1.6 mm K wires. I used a 2.0 mm drill distal to the fracture site and then a large pointed reduction forcep the elbow in extension and clamped across the fracture site. I then selected a Synthes short precontoured variable angle olecranon plate. Placed on bone. I used the oblong hole with a cortical screw to attach the plate to the bone distally. Again I clamped across this to slide the plate distally and ensure good plate to bone contact. I then inserted a number of fully threaded locking 2.7 mm cortical screws proximally and distally to the fracture site. Joint was congruent on AP and lateral radiographs. Elbow range of motion full extension to 95 of flexion, limited by soft tissues. Final radiographs were taken and saved on the system. Full pronation and supination. N o clicking or catching. Tourniquet let down. Wound thoroughly irrigated. Subcutaneous tissue closed with 2-0 Vicryl suture. Skin esther. Skin was cleaned wet and dry dressing. Adaptic 4 x 8 gauze abdominal pad dressings were then placed in an above elbow 3 sided plaster of Yue splint placed and overwrapped with 6 inch Kory bandage and patient's upper extremity placed into a sling allowed to harden at 90 degrees. Patient was woken up from general anesthetic transferred off the operating room table and taken to postanesthetic care unit in stable condition. All sponge needle and instrument counts are correct. No complications. Plan patient is admitted under the hospitalist service. They may restart her blood thinner postoperative day 1 follow up in the office in 2 weeks. May be discharged home when they are comfortable. Postoperative wound instructions were given. It was recommended to keep the wound clean and dry. Dressing changes as needed. It was reinforced with the patient that they should call us or be seen immediately for redness, drainage, or fever. Risk factors for harms from taking opioid medications discussed and assessed including but not limited to personal or family history of substance use disorder, anxiety or depression, , age 65 or older, COPD or other underlying respiratory conditions, and renal or hepatic insufficiency. Discussed with patient concerns and determined any harms they may experience or be currently experiencing such as nausea or constipation, feeling sedated or co nfused, breathing interruptions during sleep, or taking or craving more opioids than prescribed or difficulty controlling use (addiction). Discussed early warning signs of overdose including confusion, sedation, slurred speech, abnormal gait. JACQUE PHILLIPS MD Nov 13, 2020 12:27
[2020-11-13] MEDS ORDERED: METOPROLOL 5 MG/5 ML VIAL As Ordered ONE (13:18)
[2020-11-13] MEDS: METOPROLOL 5 MG/5 ML VIAL IV SCH ×3 (13:20→13:37)
[2020-11-13] MEDS ORDERED: METOPROLOL TART 25 MG TABLET PO ONE (13:25)
[2020-11-13] MEDS: NORCO, ANEXSIA 5/325MG TABLET (HYDROcodone/ACETAMINOPHEN) PO PRN ×2 (13:42→20:50)
[2020-11-13 14:20] VITALS: BP 153/99
--- NOTE | 2020-11-13 14:32 | REP ---
INDICATION: LEFT OLECRANON FRACTURE. COMPARISON: None. TECHNIQUE: Two views. 73.7 seconds of fluoroscopy time is reported. FINDINGS: AP and lateral fluoroscopically obtained spot radiographs of the left elbow document open reduction internal fixation of previously noted displaced olecranon process fracture. IMPRESSION: Procedural imaging. <Electronically signed by Gabriele Vaughan > 11/13/20 [id number]
[2020-11-13 14:50] VITALS: BP 139/94
[2020-11-13 15:20] VITALS: BP 133/78
[2020-11-13] MEDS ORDERED: KETOROLAC 30 MG/ML 1ML VIAL IV ONE (15:35)
[2020-11-13] MEDS ORDERED: NICOTINE 14 MG/24 HR TRANSDERMAL TD PRN (15:40)
--- NOTE | 2020-11-13 16:01 | HPEPDOC ---
General Date of Admission Nov 13, 2020 at 07:56 Date of Service: Nov 13, 2020 Chief Complaint The patient is a 65-year-old female admitted with a reason for visit of Left Olecranon Fracture. History of Present Illness 65 year old female with PMH of Atrial fibrillation, HTN, hypothyroid, h/o left breast cancer in 2008 s/p lumpectomy, chemo and radiation anxiety and depression, HLD, subcutaneous Lupus erythematosus had a syncopal episode and fall with injury to left elbow on 07/18/20 and sustained an elbow fracture. Work up for syncope revealedatrial fibrillation. She has nuclear stress test and a event monitor for 1 month. Cardiac work up delayed her elbow surgery. Today she came in for a planned left elbow fixation with Dr Posada. She underwent Left olecranon open reduction internal fixation release of adhesions. Patient was tachycardic with afib rvr in the PACU so admitted under hospitalist service. When i saw the patient she complained of pain at the surgical site of left elbow 6/10 sharp aching constant with no radiation. IT was worse before but got fentanyl and 10 of oxycodone so was getting better. Patient denied any chest pain or sob. Denied any palpitation. Home Medications Scheduled Apixaban (Eliquis) 5 Mg Tablet, 5 MG PO BID Atenolol (Atenolol) 50 Mg Tablet, 25 MG PO BID, (Reported) Atorvastatin Calcium (Atorvastatin Calcium) 40 Mg Tablet, 40 MG PO DAILY, (Reported) Calcium Carbonate/Vitamin D3 (Calcium 500-Vit D3 200 Tablet) 1 Each Tablet, 1 TAB PO DAILY, (Reported) Flecainide Acetate (Flecainide Acetate) 50 Mg Tablet, 1.5 TAB PO BID, (Reported) Folic Acid (Folic Acid) 1 Mg Tablet, 1 MG PO DAILY Letrozole (Letrozole) 2.5 Mg Tab, 2.5 MG PO DAILY, (Reported) Levothyroxine Sodium (Levoxyl) 25 Mcg Tablet, 50 MCG PO DAILY, (Reported) Melatonin (Melatonin) 10 Mg Tablet, 10 MG PO QHS, (Reported) Multivitamins (Thera M Plus Tablet) 1 Each Tablet, 1 TAB PO DAILY, (Reported) Paroxetine HCl (Paroxetine HCl) 40 Mg Tablet, 40 MG PO DAILY, (Reported) Ubidecarenone (Coenzyme Q10) 100 Mg Cap, 100 MG PO DAILY, (Reported) Scheduled PRN Hydrocodone/Acetaminophen (Hydrocodone-Acetamin 5-325 mg) 1 Each Tablet, 1-2 TAB PO Q6HP PRN for MODERATE/SEVERE PAIN (PS 5-10) Allergies Coded Allergies: No Known Allergies (Unverified , 11/06/20) Past Medical History Medical History Atrial fibrillation, HTN, hypothyroid, h/o left breast cancer in [id number] s/p lumpectomy, chemo and radiation, anxiety and depression, HLD, subcutaneous Lupus erythematosus Surgical History RIGHT ARM REPAIR X2 12/2016 LEFT BREAST LUMPECTOMY 07/2008 TONSILS REMOVED AGE 3 COLONOSCOPY 2017 Family History FATHER: 60 YRS, DIAGNOSED with laung vs stomach ca MOTHER: 86 YRS, ARTHRITIS, Rheumatic fever, heart surgery, Pancreatic Ca Social History * Smoker: current smoker Alcohol: occationally Drugs: denies A-FIB/CHADSVASC A-FIB History Current/History of A-Fib/PAF?: Yes Current PO Anticoag Therapy: Yes Review of Systems Constitutional: Denies: Chills, Fever, Night Sweats Eyes: Denies: Pain, Vision change ENT: Denies: Head Aches, Ear Pain, Dysphagia Skin: Denies: Rash, Lesions, Breakdown Pulmonary: Denies: Dyspnea, Cough Cardiovascular: Denies: Chest Pain, Palpitations, Orthopnea Gastrointestinal: Denies: Nausea, Vomiting, Abdominal Pain, Diarrhea Genitourinary: Denies: Dysuria, Frequency, Incontinence, Retention Musculoskeletal: Reports: Shoulder Pain, Arm Pain (left elbow) Physical Examination General Exam: Positive: Alert, Cooperative, No Acute Distress Eye Exam: Positive: PERRLA, Conjunctiva & lids normal, EOMI; Negative: Sclera icteric ENT Exam: Positive: Atraumatic, Mucous membr. moist/pink, Pharynx Normal Neck Exam: Positive: Supple; Negative: JVD, thyromegaly Chest Exam: Positive: Clear to auscultation, Normal air movement Heart Exam: Positive: Tachycardic, Irregular Rhythm, Normal S1, Normal S2 Telemetry: Positive: Atrial fibrillation Abdomen Exam: Positive: Normal bowel sounds, Soft; Negative: Tenderness, Hepatospenomegaly Extremity Exam: Negative: Clubbing, Cyanosis, Edema Vital Signs Vital Signs Date Time Temp Pulse Resp B/P (MAP) Pulse Ox O2 Delivery O2 Flow Rate FiO2 11/13/20 14:34 20 11/13/20 13:50 113 152/87 (108) 95 Room Air 11/13/20 13:42 97.1 Assessment/Plan 65 year old female with PMH of Atrial fibrillation, HTN, hypothyroid, h/o left breast cancer in 2008 s/p lumpectomy, chemo and radiation anxiety and depression, HLD, subcutaneous Lupus erythematosus had a syncopal episode and fall with injury to left elbow on 07/18/20 and sustained an elbow fracture. Work up for syncope revealedatrial fibrillation. She has nuclear stress test and a event monitor for 1 month. Cardiac work up delayed her elbow surgery. Today she came in for a planned left elbow fixation with Dr Posada. She underwent Left olecranon open reduction internal fixation release of adhesions. Patient was tachycardic with afib rvr in the PACU so admitted under hospitalist service. Left elbow fracture s/p ORIF pain control with tylenol, norco. will start eliquis tomorrow. bowel regimen PT/OT Afib with rvr given 3 doses of IV metroprolol and one po metoprolol patient is on atenolol at home will increase dose Flecainide. telemetry. HTN atenolol HLD statin Hypothyroid synthroid Depression paroxetine Smoker nicotine patch Plan / VTE VTE Prophylaxis Ordered?: Yes WILBERT LYNNE MD Nov 13, 2020 16:00
[2020-11-13 16:12] LABS: HEMATOCRIT 38.5 % (36.0-47.0); HEMOGLOBIN 12.4 g/dl (12.0-15.5); LYMPH # 0.2 10^3/uL (1.5-5.0); LYMPH % 5.6 % (24.0-44.0); MEAN CORPUSCULAR HEMOGLOBIN 30.5 pg (27.0-33.0); MEAN CORPUSCULAR HGB CONC 32.2 g/dl (32.0-36.5); MEAN CORPUSCULAR VOLUME 94.8 fl (80.0-96.0); MONO # 0.1 10^3/uL (0.0-0.8); MONO % 3.3 % (2.0-8.0); NEUTROPHILS # 3.9 10^3/uL (1.5-8.5); NEUTROPHILS % 90.6 % (36.0-66.0); PLATELET COUNT, AUTOMATED 184 10^3/uL (150-450); RED BLOOD COUNT 4.06 10^6/uL (4.00-5.40); WHITE BLOOD COUNT 4.3 10^3/uL (4.0-10.0)
[2020-11-13 16:20] VITALS: BP 109/72
[2020-11-13 16:29] LABS: BLOOD UREA NITROGEN 10 MG/DL (7-18); CALCIUM LEVEL 8.3 MG/DL (8.8-10.2); CARBON DIOXIDE LEVEL 29 MEQ/L (21-32); CHLORIDE LEVEL 107 MEQ/L (98-107); CREATININE FOR GFR 0.88 MG/DL (0.55-1.30); GLOMERULAR FILTRATION RATE > 60.0 (>45); GLUCOSE, FASTING 174 MG/DL (70-100); POTASSIUM SERUM 4.1 MEQ/L (3.5-5.1); SODIUM LEVEL 139 MEQ/L (136-145)
[2020-11-13] MEDS: LEVOTHYROXINE 50MCG TABLET (0.05MG) PO SCH (16:30)
[2020-11-13] MEDS: LETROZOLE 2.5 MG TAB PO SCH (16:31)
[2020-11-13 17:20] VITALS: BP 106/62
[2020-11-13] MEDS: DOCUSATE SODIUM 100MG CAPSULE PO SCH (20:39)
[2020-11-13] MEDS: FLECAINIDE 50MG TABLET PO SCH (20:40)
[2020-11-13] MEDS: atenoloL 50 MG TAB PO SCH (20:40)
--- NOTE | 2020-11-13 20:48 | ECGEPIP ---
[facility] Test Date: 2020-11-13 Pat Name: MIKEY MORRISON Department: Room: [place] [address] Gender: Female Grocery Associate: GHISLAINE : 1955 Requested By: WILBERT LYNNE Order Number: [id number] Reading MD: Adriane Taylor Measurements Intervals [place] Rate: 118 P: CO: QRS: 133 QRSD: 104 T: 70 QT: 390 QTc: 546 Interpretive Statements Atrial fibrillation with rapid ventricular response Septal infarct , age undetermined Lateral infarct , age undetermined SIMILAR TO 07/18/20 Electronically Signed on 11-13-2020 20:48:39 EDT by Adriane Taylor
[2020-11-13] MEDS ORDERED: ATORVASTATIN 20 MG TAB PO SCH (21:00)
[2020-11-13] MEDS ORDERED: atenoloL 25 MG TAB PO SCH (21:00)
[2020-11-13 22:00] VITALS: BP 141/80
[2020-11-14] MEDS: NORCO, ANEXSIA 5/325MG TABLET (HYDROcodone/ACETAMINOPHEN) PO PRN ×2 (03:02→08:27)
[2020-11-14] MEDS: LEVOTHYROXINE 50MCG TABLET (0.05MG) PO SCH (05:44)
[2020-11-14 05:55] LABS: HEMATOCRIT 34.5 % (36.0-47.0); HEMOGLOBIN 10.9 g/dl (12.0-15.5); MEAN CORPUSCULAR HEMOGLOBIN 31.1 pg (27.0-33.0); MEAN CORPUSCULAR HGB CONC 31.6 g/dl (32.0-36.5); MEAN CORPUSCULAR VOLUME 98.3 fl (80.0-96.0); PLATELET COUNT, AUTOMATED 159 10^3/uL (150-450); RED BLOOD COUNT 3.51 10^6/uL (4.00-5.40); WHITE BLOOD COUNT 5.3 10^3/uL (4.0-10.0)
[2020-11-14 06:00] VITALS: BP 130/79
[2020-11-14 06:18] LABS: CALCIUM LEVEL 7.9 MG/DL (8.8-10.2); CREATININE FOR GFR 1.02 MG/DL (0.55-1.30); GLOMERULAR FILTRATION RATE 57.9 (>45); POTASSIUM SERUM 3.8 MEQ/L (3.5-5.1)
[2020-11-14] MEDS: FLECAINIDE 50MG TABLET PO SCH (08:21)
[2020-11-14] MEDS: LETROZOLE 2.5 MG TAB PO SCH (08:21)
[2020-11-14 08:22] VITALS: BP 121/75
[2020-11-14] MEDS: atenoloL 50 MG TAB PO SCH (08:22)
[2020-11-14] MEDS: DOCUSATE SODIUM 100MG CAPSULE PO SCH (08:22)
[2020-11-14] MEDS ORDERED: FOLIC ACID 1 MG TAB PO SCH (09:00)
[2020-11-14] MEDS ORDERED: PARoxetine 20MG TABLET PO SCH (09:00)
[2020-11-14] MEDS ORDERED: ELIQ5TAB PO (10:50)
--- NOTE | 2020-11-14 10:55 | IPN ---
PROGRESS NOTE DATE: 11/14/2020 CHIEF COMPLAINT: Postoperative day #1 left olecranon nonunion open reduction internal fixation. HISTORY OF PRESENT ILLNESS: A 65-year-old female seen today on the [facility]er at [facility] postop day #1 left olecranon ORIF. She is doing well. Her original surgery was delayed due to cardiac issues. She was postoperatively in atrial fibrillation with rapid ventricular response. She was admitted overnight both for that as well as difficulties with transportation. She did well, no concerns. A little bit of pain to the forearm and she states that there is some mild swelling in the hand, otherwise doing well. PHYSICAL EXAMINATION: A well appearing 65-year-old female. She is sitting upright eating breakfast comfortably. Splint in situ, very mild swelling in the hand. Hand is warm and well perfused. Normal sensation and motor function in median, radial and ulnar nerves as well as AIN/PIN. ASSESSMENT AND PLAN: This 65-year-old female can be discharged home today for her orthopedic issues. I will leave her medical discharge up to the hospitalist service, who I thank greatly for their involvement. I have asked her to follow-up in about 5 days or so, however if she needs to push that up to 2 weeks based on transportation, that is reasonable as well. We will discontinue the splint when she arrives postoperatively and discontinue the esther at postop day #14 approximately. She had no further questions.
[2020-11-14] MEDS ORDERED: HYDR-3715 PO (10:58)
--- NOTE | 2020-11-14 15:54 | IPNPDOC ---
Subjective Date Seen The patient was seen on 11/14/20. Subjective Chief Complaint/HPI No complaint this morning. Sitting up in bed. Cleared by ortho and PT for discharge. Objective Physical Examination General Exam: Positive: Alert, Cooperative, No Acute Distress Eye Exam: Positive: PERRLA, Conjunctiva & lids normal, EOMI; Negative: Sclera icteric ENT Exam: Positive: Atraumatic, Mucous membr. moist/pink, Pharynx Normal Neck Exam: Positive: Supple; Negative: JVD, thyromegaly Chest Exam: Positive: Clear to auscultation, Normal air movement Heart Exam: Positive: Rate Normal, Irregular Rhythm, Normal S1, Normal S2 Telemetry: Positive: Atrial fibrillation Abdomen Exam: Positive: Normal bowel sounds, Soft; Negative: Tenderness, Hepatospenomegaly Extremity Exam: Negative: Clubbing, Cyanosis, Edema Assessment /Plan Assessment 65 year old female with PMH of Atrial fibrillation, HTN, hypothyroid, h/o left breast cancer in 2008 s/p lumpectomy, chemo and radiation anxiety and depression, HLD, subcutaneous Lupus erythematosus had a syncopal episode and fall with injury to left elbow on 07/18/20 and sustained an elbow fracture. Work up for syncope revealedatrial fibrillation. She has nuclear stress test and a event monitor for 1 month. Cardiac work up delayed her elbow surgery. Today she came in for a planned left elbow fixation with Dr Posada. She underwent Left olecranon open reduction internal fixation release of adhesions. Patient was tachycardic with afib rvr in the PACU so admitted under hospitalist service. Left elbow fracture s/p ORIF pain controlled with tylenol, norco. restart eliquis Follow up Dr Posada in 5 days to 2 weeks Chronic Afib with rvr given 3 doses of IV metroprolol and one po metoprolol patient is on atenolol at home increased dose with control of heart rate. Continued on flecainide. At present rate controlled. Will dc with home meds HTN atenolol HLD statin Hypothyroid synthroid Depression paroxetine Dispo: Patient discharged home. Follow up with Dr Posada as advised. Follow up with PMD as needed. Plan/VTE VTE Prophylaxis Ordered?: Yes VS, I&O, 24H, Fishbone Vital Signs/I&O Vital Signs Date Time Temp Pulse Resp B/P (MAP) Pulse Ox O2 Delivery O2 Flow Rate FiO2 11/14/20 09:15 16 11/14/20 08:22 85 121/75 11/14/20 06:00 97.4 95 11/13/20 17:20 Room Air I&O- Last 24 Hours up to 6 AM 11/14/20 07:00 Intake Total 4590 ml Output Total 350 ml Balance 4240 ml Laboratory Data 24H LABS Laboratory Tests 2 11/13/20 15:52: Immature Granulocyte % (Auto) 0.5, Neutrophils (%) (Auto) 90.6H, Lymphocytes (%) (Auto) 5.6L, Monocytes (%) (Auto) 3.3, Eosinophils (%) (Auto) 0.0, Basophils (%) (Auto) 0.0, Neutrophils # (Auto) 3.9, Lymphocytes # (Auto) 0.2L, Monocytes # (Auto) 0.1, Eosinophils # (Auto) 0.0, Basophils # (Auto) 0.0, Nucleated Red Blood Cells % (auto) 0.0, Anion Gap 3L, Glomerular Filtration Rate > 60.0, Calcium Level 8.3L 11/14/20 05:35: Nucleated Red Blood Cells % (auto) 0.0, Anion Gap 4L, Glomerular Filtration Rate 57.9, Calcium Level 7.9L CBC/BMP Laboratory Tests 11/13/20 15:52 11/14/20 05:35 WILBERT LYNNE MD Nov 14, 2020 15:54
[2020-11-15] MEDS ORDERED: APIXABAN 5 MG TAB (ELIQUIS) PO SCH (09:00)
== END 2020-11-14 14:07 | disposition home or self-care (01) ==
LOC: INTOOBSV 07:56 → M OR 07:56 → PREOBSVTOIN 08:59 → EDSTATUS 09:30 → M MSPAV 14:27
PROVIDERS: ADMIT Orthopaedic Surgery Sports Medicine; ATTEND Orthopaedic Surgery Sports Medicine
DX: S52.022K Displaced fracture of olecranon process without intraarticular extension of left ulna, subsequent encounter for closed fracture with nonunion (principal); I48.91 Unspecified atrial fibrillation; I10 Essential (primary) hypertension; E03.9 Hypothyroidism, unspecified; F32.9 Major depressive disorder, single episode, unspecified; R55 Syncope and collapse; E78.49 Other hyperlipidemia; L93.1 Subacute cutaneous lupus erythematosus; F41.9 Anxiety disorder, unspecified; Z79.01 Long term (current) use of anticoagulants; Z79.899 Other long term (current) drug therapy; F17.218 Nicotine dependence, cigarettes, with other nicotine-induced disorders; Z85.3 Personal history of malignant neoplasm of breast; Z92.3 Personal history of irradiation; Z92.21 Personal history of antineoplastic chemotherapy; Y92.89 Other specified places as the place of occurrence of the external cause; Y93.9 Activity, unspecified; Y99.9 Unspecified external cause status
CPT/HCPCS: 24685; 36415; 76000; 80048; 85025; 85027; 93005; 96374; 97161; C1713; G0378; J0131; J0690; J1100; J1170; J1885; J2250; J2405; J3010

== ENCOUNTER → 2020-11-26 | Outpatient (CLI) | payer MEDICARE, OTHER ==
[~2020-11-26] MED LIST changes: +HYDR-3715 PO; -LR 1,000 ML IV ONE; -ceFAZolin SOD 2 GM in IV 1 EA IV ONE
--- NOTE | 2020-11-26 14:01 | REP ---
INDICATION: ORTHO AFTERCARE. COMPARISON: 10/18/2020 TECHNIQUE: AP and lateral views of the right elbow. FINDINGS: The current examination demonstrates posttraumatic degenerative changes along with newly placed orthopedic hardware. The large bony fragment presumed to be portion of the olecranon process which has migrated and sits posterior to the distal humeral metaphysis is relatively stable in its position and remains detached from the orthopedic hardware. Significant surrounding soft tissue swelling and joint effusion are again noted. IMPRESSION: Posttraumatic and postsurgical changes as described above. <Electronically signed by Kevan Morgan > 11/26/20 [id number]
== END ==
LOC: M SOG 10:48
PROVIDERS: ATTEND Orthopaedic Surgery Sports Medicine
DX: Z47.89 Encounter for other orthopedic aftercare (principal)

== ENCOUNTER → 2020-11-29 | Outpatient (CLI) | payer MEDICARE, OTHER ==
[~2020-11-29] MED LIST changes: +LEVO50TA5 PO
== END ==
LOC: M LABSMTC 10:47
PROVIDERS: ATTEND Anesthesiology
DX: Z01.812 Encounter for preprocedural laboratory examination (principal)

== ENCOUNTER 2020-12-04 11:19 | Day surgery (SDC) | payer OTHER ==
[~2020-12-04] VITALS: Ht 175.3 cm; Wt 63.5 kg
[~2020-12-04 11:19] MED LIST changes: +LIDOCAINE 2% 100MG/5ML SDV (FOR ANES.) As Ordered ONE; +LR 1,000 ML IV ONE; +MIDAZOLAM INJ 2MG/2ML VIAL (J2250 PER 1MG) As Ordered ONE; +ROCURONIUM BROMIDE 50 MG/5 ML VIAL As Ordered ONE; +ceFAZolin SOD 2 GM in IV 1 EA IV ONE; +fentaNYL 250 MCG/5 ML INJECTION (J3010) As Ordered ONE; +propofoL 200 MG/20 ML VIAL As Ordered ONE
[2020-12-04] MEDS ORDERED: dexameTHASONE 4 MG/ML 1ML VIAL (J1100 PER 1MG) As Ordered ONE (13:03)
[2020-12-04] MEDS ORDERED: ePHEDrine SULFATE 25 MG/5 ML(5MG/ML) SYRINGE As Ordered ONE (13:35)
[2020-12-04] MEDS ORDERED: LIDOCAINE 1% SDV 30ML VIAL As Ordered ONE (13:40)
[2020-12-04] MEDS ORDERED: SUGAMMADEX SODIUM 500 MG/5 ML VIAL (BRIDION) As Ordered ONE (14:05)
[2020-12-04] MEDS ORDERED: ONDANSETRON 4MG/2ML VIAL As Ordered ONE ×2 (14:07→15:12)
[2020-12-04] MEDS ORDERED: HYDROmorphone HCL 2 MG/ML 1ML VIAL (J1170) As Ordered ONE (14:21)
[2020-12-04] MEDS ORDERED: KETOROLAC 60MG 2ML VIAL As Ordered ONE (14:41)
[2020-12-04] MEDS ORDERED: ACETAMINOPHEN 1000MG 100ML IV BTL (OFIRMEV) (J0131 PER 10MG) As Ordered ONE (14:42)
[2020-12-04] MEDS ORDERED: fentaNYL 100 MCG/2 ML INJECTION (J3010) As Ordered ONE (15:12)
[2020-12-04] MEDS: fentaNYL 100 MCG/2 ML INJECTION (J3010) IV PRN ×4 (15:20→15:36)
[2020-12-04] MEDS ORDERED: LR 1,000 ML IV SCH (15:30)
[2020-12-04] MEDS ORDERED: ONDANSETRON 4MG/2ML VIAL IV PRN ×2 (15:30→15:35)
[2020-12-04] MEDS ORDERED: PERCOCET 5MG/325MG TAB PO PRN (15:30)
[2020-12-04] MEDS ORDERED: METOCLOPRAMIDE INJ 10MG/2ML VIAL (J2765 PER 1) IV PRN (15:30)
--- NOTE | 2020-12-04 15:48 | ROOPDOC ---
[facility] Report Of Operation Report of Operation DATE OF PROCEDURE: 12/04/20 PREPROCEDURE DIAGNOSES: Left elbow failure of fixation after olecranon fracture ORIF nonunion. POSTPROCEDURE DIAGNOSES: Same. PROCEDURE: Left elbow hardware removal fragment excision and triceps advancement. SURGEON: Dr. Jacque Phillips MD HUMAN RESOURCES PROJECT MANAGER: None, ANESTHESIA: Gen. anesthesia Coco. ESTIMATED BLOOD LOSS: Approximately 20 mL. COMPLICATIONS: None. REMARKS: None. PROCEDURE NOTE: This 65-year-old female had a 6-month-old olecranon fracture. I attempted open reduction internal fixation. This failed after 2 weeks. We discussed all her options and she wishes to go ahead with fragment excision hardware removal and triceps advancement. Saw the patient in preoperative holding reminded them of the pros and cons risks and benefits of nonsurgical versus surgical treatment. They wish to proceed I marked left upper extremity. They had no further questions.. DESCRIPTION OF PROCEDURE: The patient is brought to the operating room theater. They are given a general anesthetic. There placed left lateral decubitus on the operating room table. Axillary roll was placed. All bony prominences were padded. Sequential devices used on the legs. Left upper extremity had a 18 inch tourniquet applied and appropriately padded. Left upper extremity prepped and draped in the usual sterile fashion with chlorhexidine prep solution allowing over 3 minutes prep solution drying time prior to draping. 2 g of IV Ancef was administered prior to the start of the case. Preoperative timeout was performed to confirm the site the patient and the surgery. Began by elevating the limb and inflating the tourniquet to 250 mmHg. Made the standard posterior working incision through the old incision. Extended this distally and proximally slightly. I removed the plate. I thorough irrigated. I did send some bone for culture samples to rule out infection. Otherwise there is no pus or other signs of infection. I excised the olecranon fragments try to mobilize around the triceps and the anterior and posterior aspects of that. I took intraoperative lateral radiograph to confirm appropriate excision. I left a small shell of bone for possible bony healing. I used Arthrex #2 FiberWire in a running locking Krakw type stitch up and down the triceps tendon. I created 4 suture tails and passed these through the small shell of bone. I then used a 1.8 mm drill bit to drill 2 longitudinal holes from proximal to distal at the distal fragment through the ulna. I then drilled a hole from medial to lateral, distal to these 2 holes. They were exiting on the subcutaneous border of the ulna. I then used a suture passer to pass the 2 sutures through each hole and then in a crisscross fashion in opposite directions through the transverse hole. I tied them with the elbow in full extension to each other. This achieved reasonable purchase of the triceps and bone shell fragment down however there is some stiffness that remained. I let the tourniquet down. I thoroughly irrigated the wound. I closed the subcutaneous tissue with 2-0 Vicryl sutures and skin esther. 10 mL 1% lidocaine was instilled around the incision site. Skin is clean dry dressing followed by application of Adaptic 4 by gauze and ABD dressing and overwrapped with sterile cast padding with the elbow splinted in near full extension with a anterior plaster of Yue splint and overwrapped with 6 inch Kory bandage. Patient is woken up from a general anesthetic transferred off the operating room table and taken to postanesthetic care unit in stable condition. All sponge needle and instrument counts were correct. No complications. The patient is to be discharged home and they are comfortable. Follow up in the office 2 weeks' time. The bandage and dressing and splint on until follow-up in clinic. Prescription will be sent in to the pharmacy of choice electronically. Risk factors for harms from taking opioid medications discussed and assessed including but not limited to personal or family history of substance use disorder, anxiety or depression, , age 65 or older, COPD or other underlying respiratory conditions, and renal or hepatic insufficiency. Discussed with patient concerns and determined any harms they may experience or be currently experiencing such as nausea or constipation, feeling sedated or confused, breathing interruptions during sleep, or taking or craving more o pioids than prescribed or difficulty controlling use (addiction). Discussed early warning signs of overdose including confusion, sedation, slurred speech, abnormal gait. JACQUE PHILLIPS MD December 04, 2020 15:48
[2020-12-04] MEDS: MORPHINE 2 MG/ML 1ML VIAL (J2270) IV PRN ×2 (16:04→20:16)
[2020-12-04 16:30] VITALS: BP 148/75
[2020-12-04 17:00] VITALS: BP 155/70
[2020-12-04] MEDS: LR 1,000 ML IV SCH (17:00)
[2020-12-04 18:00] VITALS: BP 172/83
[2020-12-04 19:00] VITALS: BP 130/65
[2020-12-04 20:00] VITALS: BP 132/64
[2020-12-04] MEDS: PERCOCET 5MG/325MG TAB PO PRN (21:37)
[2020-12-05] MEDS: MORPHINE 2 MG/ML 1ML VIAL (J2270) IV PRN ×2 (00:49→05:30)
[2020-12-05] MEDS: ACETAMINOPHEN TAB 650MG DOSE (2X325MG) PO PRN ×2 (00:56→13:31)
[2020-12-05] MEDS: LR 1,000 ML IV SCH ×2 (01:00→09:00)
[2020-12-05 02:00] VITALS: BP 147/87
[2020-12-05] MEDS: PERCOCET 5MG/325MG TAB PO PRN ×2 (03:29→09:48)
[2020-12-05 06:00] VITALS: BP 142/90
--- NOTE | 2020-12-05 10:00 | REP ---
INDICATION: LEFT ELBOW HARDWARE REMOVAL. COMPARISON: 11/26/2020. TECHNIQUE: Two C-arm views left elbow. FINDINGS: There appears to have been removal of metallic internal fixation of the proximal ulna. The osseous structures appear well aligned. IMPRESSION: 2 seconds of fluoroscopy time is utilized. <Electronically signed by Forest Spann > 12/05/20 [id number]
== END 2020-12-05 13:50 | disposition home or self-care (01) ==
LOC: M OROP 11:19 → EDSTATUS 12:45 → M MS5PR 16:30 → M OROP 12-05 13:50
PROVIDERS: ATTEND Orthopaedic Surgery Sports Medicine
DX: S52.031K Displaced fracture of olecranon process with intraarticular extension of right ulna, subsequent encounter for closed fracture with nonunion (principal); I48.91 Unspecified atrial fibrillation; I10 Essential (primary) hypertension; E03.9 Hypothyroidism, unspecified; M32.9 Systemic lupus erythematosus, unspecified; Z85.3 Personal history of malignant neoplasm of breast; F41.9 Anxiety disorder, unspecified; F32.9 Major depressive disorder, single episode, unspecified; Z92.21 Personal history of antineoplastic chemotherapy; Z92.3 Personal history of irradiation; Z79.01 Long term (current) use of anticoagulants; Z79.899 Other long term (current) drug therapy
CPT/HCPCS: 20680; 24201; 24301; 76000; 87070; 87075; 87077; 87186; 87205; 96374; 96376; J0131; J0690; J1100; J1170; J1885; J2250; J2270; J2405; J3010

== ENCOUNTER → 2021-01-23 | Outpatient (CLI) | payer OTHER ==
[~2021-01-23] MED LIST changes: +GASTROGRAFIN SOLUTION 30ML (Q9963) As Ordered ONE; +ISOVUE-370 76% 100ML VIAL As Ordered ONE; -LIDOCAINE 2% 100MG/5ML SDV (FOR ANES.) As Ordered ONE; -LR 1,000 ML IV ONE; -MIDAZOLAM INJ 2MG/2ML VIAL (J2250 PER 1MG) As Ordered ONE; -ROCURONIUM BROMIDE 50 MG/5 ML VIAL As Ordered ONE; -ceFAZolin SOD 2 GM in IV 1 EA IV ONE; -fentaNYL 250 MCG/5 ML INJECTION (J3010) As Ordered ONE; -propofoL 200 MG/20 ML VIAL As Ordered ONE
--- NOTE | 2021-01-23 14:44 | REP ---
INDICATION: PANCREATIC NODULE. COMPARISON: None TECHNIQUE: Axial contrast-enhanced images from the lung bases to the pubic symphysis using 100 cc Isovue 370 intravenous contrast material. . This CT examination was performed using the following dose reduction techniques: Automated exposure control, adjustment of mA and/or kv according to the patient's size, and the use of iterative reconstruction technique. FINDINGS: Liver, spleen, pancreas, gallbladder, bilateral adrenal glands and kidneys are essentially normal/stable. Small area of presumed focal fatty infiltration within the liver remains unchanged. 3 mm nonobstructing left renal calculus again identified. Subtle low density area at the tail of the pancreas remains stable and the previously noted inflammatory changes have resolved. Retroperitoneal periaortic lymph nodes at the level of the pancreas measuring up to approximately 12.5 mm are again noted and essentially stable. The enteric system including stomach, small, and large bowel appears normal. No evidence for obstruction or acute inflammatory process. Normal terminal ileum and appendix are identified in the right lower quadrant. Pelvis demonstrates normal bladder and age-appropriate uterus/adnexa. No ascites. No free air. No intraperitoneal or retroperitoneal adenopathy. Abdominal aorta and vasculature appear normal. Musculoskeletal structures demonstrate chronic scoliosis and degenerative changes. IMPRESSION: 1. Low-density changes at the tail of the pancreas remains stable and likely represent sequelae of prior pancreatitis. 2. Retroperitoneal lymph nodes remain stable and nonspecific. 3. 3 mm nonobstructing left renal calculus. <Electronically signed by Kevan Morgan > 01/23/21 0109
== END ==
LOC: M RAD 12:03
PROVIDERS: ATTEND Specialist
DX: K86.89 Other specified diseases of pancreas (principal); N20.0 Calculus of kidney
CPT/HCPCS: 74177; Q9963; Q9967

== ENCOUNTER → 2021-03-13 | Outpatient (REF) | payer OTHER ==
[~2021-03-13] MED LIST changes: -GASTROGRAFIN SOLUTION 30ML (Q9963) As Ordered ONE; -ISOVUE-370 76% 100ML VIAL As Ordered ONE
[2021-03-13 16:53] LABS: BASO % 0.3 % (0.0-1.0); HEMATOCRIT 35.2 % (36.0-47.0); HEMOGLOBIN 11.3 g/dl (12.0-15.5); LYMPH # 0.8 10^3/uL (1.5-5.0); LYMPH % 20.6 % (24.0-44.0); MEAN CORPUSCULAR HEMOGLOBIN 33.6 pg (27.0-33.0); MEAN CORPUSCULAR HGB CONC 32.1 g/dl (32.0-36.5); MEAN CORPUSCULAR VOLUME 104.8 fl (80.0-96.0); MONO # 0.5 10^3/uL (0.0-0.8); MONO % 12.2 % (2.0-8.0); NEUTROPHILS # 2.5 10^3/uL (1.5-8.5); NEUTROPHILS % 65.6 % (36.0-66.0); PLATELET COUNT, AUTOMATED 230 10^3/uL (150-450); RED BLOOD COUNT 3.36 10^6/uL (4.00-5.40); WHITE BLOOD COUNT 3.8 10^3/uL (4.0-10.0)
[2021-03-13 17:23] LABS: ALBUMIN 3.5 GM/DL (3.2-5.2); ALT/SGPT 30 U/L (12-78); BILIRUBIN,TOTAL 0.4 MG/DL (0.2-1.0); BLOOD UREA NITROGEN 8 MG/DL (7-18); CARBON DIOXIDE LEVEL 28 MEQ/L (21-32); CHLORIDE LEVEL 110 MEQ/L (98-107); CREATININE FOR GFR 0.72 MG/DL (0.55-1.30); FOLATE > 24.0 NG/ML; GLOMERULAR FILTRATION RATE > 60.0 (>45); GLUCOSE, FASTING 113 MG/DL (70-100); POTASSIUM SERUM 4.1 MEQ/L (3.5-5.1); SODIUM LEVEL 141 MEQ/L (136-145); VITAMIN B12 LEVEL 273 PG/ML
== END ==
LOC: M SFHCCAPE 10:33
PROVIDERS: ATTEND Physician Assistant
DX: R26.89 Other abnormalities of gait and mobility (principal)

== ENCOUNTER → 2021-09-01 | Outpatient (CLI) | payer OTHER ==
[~2021-09-01] MED LIST changes: +CALC1TAB42 PO; +GASTROGRAFIN SOLUTION 30ML (Q9963) As Ordered ONE; +ISOVUE-370 76% 100ML VIAL As Ordered ONE; -LISI-898 PO; +LISI5TAB11 PO
== END ==
LOC: M RAD 09:24
PROVIDERS: ATTEND Specialist
DX: R94.5 Abnormal results of liver function studies (principal)
CPT/HCPCS: 71260; 74177; Q9963; Q9967

== ENCOUNTER → 2022-02-09 | Outpatient (CLI) | payer OTHER ==
[~2022-02-09] MED LIST changes: -GASTROGRAFIN SOLUTION 30ML (Q9963) As Ordered ONE; -ISOVUE-370 76% 100ML VIAL As Ordered ONE
== END ==
LOC: M PLARAD 07:55
PROVIDERS: ATTEND Specialist
DX: C50.412 Malignant neoplasm of upper-outer quadrant of left female breast (principal); C77.0 Secondary and unspecified malignant neoplasm of lymph nodes of head, face and neck; Z90.12 Acquired absence of left breast and nipple
CPT/HCPCS: 78815; A9552

== ENCOUNTER → 2022-03-17 | Outpatient (REF) | payer OTHER ==
[2022-03-17 12:07] LABS: BASO % 0.5 % (0.0-1.0); EOS % 0.7 % (0.0-3.0); HEMATOCRIT 28.8 % (36.0-47.0); HEMOGLOBIN 8.8 g/dl (12.0-15.5); LYMPH # 0.7 10^3/uL (1.5-5.0); LYMPH % 15.3 % (24.0-44.0); MEAN CORPUSCULAR HEMOGLOBIN 29.7 pg (27.0-33.0); MEAN CORPUSCULAR HGB CONC 30.6 g/dl (32.0-36.5); MEAN CORPUSCULAR VOLUME 97.3 fl (80.0-96.0); MONO # 0.4 10^3/uL (0.0-0.8); MONO % 9.9 % (2.0-8.0); NEUTROPHILS # 3.1 10^3/uL (1.5-8.5); NEUTROPHILS % 73.1 % (36.0-66.0); PLATELET COUNT, AUTOMATED 277 10^3/uL (150-450); RED BLOOD COUNT 2.96 10^6/uL (4.00-5.40); WHITE BLOOD COUNT 4.2 10^3/uL (4.0-10.0)
[2022-03-17 12:23] LABS: HEMOGLOBIN A1c 5.7 %
[2022-03-17 12:50] LABS: ALT/SGPT 19 U/L (12-78); BILIRUBIN,TOTAL 0.3 MG/DL (0.2-1.0); BLOOD UREA NITROGEN 8 MG/DL (7-18); CALCIUM LEVEL 8.9 MG/DL (8.8-10.2); CARBON DIOXIDE LEVEL 27 MEQ/L (21-32); CHLORIDE LEVEL 108 MEQ/L (98-107); CHOLESTEROL LEVEL 191 MG/DL (<200); CHOLESTEROL RISK RATIO 2.195 (<5); CREATININE FOR GFR 0.63 MG/DL (0.55-1.30); GLOMERULAR FILTRATION RATE > 60.0 (>45); GLUCOSE, FASTING 118 MG/DL (70-100); HDL CHOLESTEROL 87 MG/DL (>40); LDL CHOLESTEROL 82 MG/DL (<100); NON-HDL-C 104 MG/DL; SODIUM LEVEL 139 MEQ/L (136-145); TOTAL PROTEIN 6.6 GM/DL (6.4-8.2); TRIGLYCERIDES LEVEL 112 MG/DL (<150)
[2022-03-17 13:31] LABS: VITAMIN B12 LEVEL 186 PG/ML (247-911)
[2022-03-17 14:02] LABS: TOTAL 25(OH) VITAMIN D 32.1 NG/ML (30.0-100.0)
== END ==
LOC: M LAB REF 11:34
PROVIDERS: ATTEND Physician Assistant
DX: E78.1 Pure hyperglyceridemia (principal); E03.9 Hypothyroidism, unspecified; R73.01 Impaired fasting glucose; Z79.899 Other long term (current) drug therapy

== ENCOUNTER → 2022-03-22 | Outpatient (CLI) | payer OTHER | LOC: M LABSMTC 09:43 | PROVIDERS: ATTEND Anesthesiology | DX: Z01.818 Encounter for other preprocedural examination (principal); Z11.52 Encounter for screening for COVID-19 ==

== ENCOUNTER 2022-03-25 12:17 | Day surgery (SDC) | payer OTHER ==
[~2022-03-25] VITALS: Ht 172.7 cm; Wt 60.8 kg
[~2022-03-25 12:17] MED LIST changes: +NS 1,000 ML IV ONE
[2022-03-25] MEDS ORDERED: propofoL 200 MG/20 ML VIAL As Ordered ONE ×3 (14:01→14:23)
[2022-03-25 14:50] VITALS: BP 138/67
== END 2022-03-25 18:40 | disposition home or self-care (01) ==
LOC: M OPP 12:17
PROVIDERS: ATTEND Surgery
DX: K52.9 Noninfective gastroenteritis and colitis, unspecified (principal); D12.2 Benign neoplasm of ascending colon; K92.1 Melena; Z80.0 Family history of malignant neoplasm of digestive organs; I48.91 Unspecified atrial fibrillation; I10 Essential (primary) hypertension; E03.9 Hypothyroidism, unspecified; M32.9 Systemic lupus erythematosus, unspecified; F32.9 Major depressive disorder, single episode, unspecified; F41.9 Anxiety disorder, unspecified; Z79.01 Long term (current) use of anticoagulants; Z79.02 Long term (current) use of antithrombotics/antiplatelets; Z79.811 Long term (current) use of aromatase inhibitors; Z79.899 Other long term (current) drug therapy; Z92.21 Personal history of antineoplastic chemotherapy; Z92.3 Personal history of irradiation

== ENCOUNTER → 2022-04-06 | Outpatient (CLI) | payer OTHER ==
[~2022-04-06] MED LIST changes: -NS 1,000 ML IV ONE
== END ==
LOC: M WHC 12:39
PROVIDERS: ATTEND Nurse Practitioner Family
DX: Z12.31 Encounter for screening mammogram for malignant neoplasm of breast (principal)

== ENCOUNTER → 2022-04-06 | Outpatient (REF) | payer OTHER | LOC: M PLALAB 16:27 | PROVIDERS: ATTEND Nurse Practitioner Family | DX: Z12.4 Encounter for screening for malignant neoplasm of cervix (principal); R87.610 Atypical squamous cells of undetermined significance on cytologic smear of cervix (ASC-US) | CPT/HCPCS: 87624; G0123 ==

== ENCOUNTER → 2022-06-05 | Outpatient (CLI) | payer OTHER ==
[~2022-06-05] MED LIST changes: +VITA100018 PO
== END ==
LOC: M PLARAD 10:17
PROVIDERS: ATTEND Surgery
DX: R19.09 Other intra-abdominal and pelvic swelling, mass and lump (principal)

== ENCOUNTER → 2022-07-03 | Outpatient (CLI) | payer OTHER ==
[~2022-07-03] MED LIST changes: -PAXI40TA10 PO; +PAXI40TA12 PO
== END ==
LOC: M WHC 13:29
PROVIDERS: ATTEND Specialist
DX: C50.919 Malignant neoplasm of unspecified site of unspecified female breast (principal); M85.89 Other specified disorders of bone density and structure, multiple sites

== ENCOUNTER → 2022-09-24 | Outpatient (REF) | payer OTHER, MEDICAID ==
[2022-09-24 09:36] LABS: FREE T4 0.98 NG/DL (0.89-1.76); THYROID STIMULATING HORMONE 4.661 uIU/ML (0.55-4.78)
[2022-09-24 13:24] LABS: FOLATE 18.1 NG/ML (>5.4)
== END ==
LOC: M LAB REF 08:20
PROVIDERS: ATTEND Physician Assistant
DX: E53.8 Deficiency of other specified B group vitamins (principal)

== ENCOUNTER → 2022-10-12 | Outpatient (CLI) | payer OTHER ==
[~2022-10-12] MED LIST changes: +GASTROGRAFIN SOLUTION 30ML As Ordered ONE; +ISOVUE-370 76% 100ML VIAL As Ordered ONE
== END ==
LOC: M RAD 10:55
PROVIDERS: ATTEND Specialist
DX: R10.12 Left upper quadrant pain (principal)
CPT/HCPCS: 74177; Q9963; Q9967

== ENCOUNTER → 2022-12-07 | Outpatient (REF) | payer OTHER, MEDICAID ==
[~2022-12-07] MED LIST changes: -GASTROGRAFIN SOLUTION 30ML As Ordered ONE; -ISOVUE-370 76% 100ML VIAL As Ordered ONE; +OXYC1TAB23 PO
== END ==
LOC: M SFHCCAPE 14:03
PROVIDERS: ATTEND Physician Assistant
DX: L03.113 Cellulitis of right upper limb (principal); W54.0XXA Bitten by dog, initial encounter

== ENCOUNTER 2022-12-11 13:21 | Day surgery (SDC) | payer OTHER ==
[~2022-12-11] VITALS: Ht 172.7 cm; Wt 60.7 kg
[~2022-12-11 13:21] MED LIST changes: +NS 1,000 ML IV ONE
[2022-12-11] MEDS ORDERED: propofoL 200 MG/20 ML VIAL As Ordered ONE (14:06)
[2022-12-11 14:46] VITALS: BP 166/86
[2022-12-11] MEDS ORDERED: SIMETHICONE 40MG/0.6ML DROPS 30ML As Ordered ONE (15:49)
== END 2022-12-11 18:58 | disposition home or self-care (01) ==
LOC: M OPP 13:21
PROVIDERS: ATTEND Surgery
DX: K64.1 Second degree hemorrhoids (principal); R93.3 Abnormal findings on diagnostic imaging of other parts of digestive tract; F17.200 Nicotine dependence, unspecified, uncomplicated; Z79.01 Long term (current) use of anticoagulants; Z79.890 Hormone replacement therapy; Z79.899 Other long term (current) drug therapy

== ENCOUNTER 2023-01-24 00:01 | Emergency (ER) | payer OTHER ==
[~2023-01-24] VITALS: Ht 172.7 cm; Wt 60.0 kg
[~2023-01-24 00:01] MED LIST changes: -NS 1,000 ML IV ONE
[2023-01-24 00:13] VITALS: TEMP 98.1
[2023-01-24 01:00] VITALS: BP 94/60
[2023-01-24] MEDS ORDERED: LIDOCAINE 1% MDV 20ML VIAL SC ONE (01:15)
[2023-01-24 02:01] VITALS: O2SAT 97
[2023-01-24 02:22] LABS: BASO % 0.3 % (0.0-1.0); EOS % 0.8 % (0.0-3.0); HEMOGLOBIN 10.8 g/dl (12.0-15.5); LYMPH # 1.1 10^3/uL (1.5-5.0); LYMPH % 30.5 % (24.0-44.0); MEAN CORPUSCULAR HEMOGLOBIN 32.4 pg (27.0-33.0); MEAN CORPUSCULAR HGB CONC 33.8 g/dl (32.0-36.5); MEAN CORPUSCULAR VOLUME 96.1 fl (80.0-96.0); MONO # 0.3 10^3/uL (0.0-0.8); MONO % 6.8 % (2.0-8.0); NEUTROPHILS # 2.3 10^3/uL (1.5-8.5); NEUTROPHILS % 61.3 % (36.0-66.0); PLATELET COUNT, AUTOMATED 220 10^3/uL (150-450); RED BLOOD COUNT 3.33 10^6/uL (4.00-5.40); WHITE BLOOD COUNT 3.7 10^3/uL (4.0-10.0)
[2023-01-24] MEDS ORDERED: ACETAMINOPHEN TAB 650MG DOSE (2X325MG) PO ONE (02:25)
[2023-01-24 02:49] LABS: INR 1.08; PARTIAL THROMBOPLASTIN TIME 30.6 SECONDS (24.8-34.2); PROTHROMBIN TIME 14.2 SECONDS (12.5-14.5)
== END 2023-01-24 03:22 | disposition home or self-care (01) ==
LOC: M ED 00:01 → EDBD 00:01 → M ED 03:22
DX: S81.812A Laceration without foreign body, left lower leg, initial encounter (principal); S52.222A Displaced transverse fracture of shaft of left ulna, initial encounter for closed fracture; W13.3XXA Fall through floor, initial encounter; F41.9 Anxiety disorder, unspecified; F32.A Depression, unspecified; C50.919 Malignant neoplasm of unspecified site of unspecified female breast; F17.200 Nicotine dependence, unspecified, uncomplicated; Z86.79 Personal history of other diseases of the circulatory system; Y92.009 Unspecified place in unspecified non-institutional (private) residence as the place of occurrence of the external cause; Z79.01 Long term (current) use of anticoagulants; Z79.899 Other long term (current) drug therapy

== ENCOUNTER → 2023-02-02 | Outpatient (REF) | payer OTHER, MEDICAID | LOC: M SFHCCAPE 11:01 | PROVIDERS: ATTEND Physician Assistant | DX: T14.8XXA Other injury of unspecified body region, initial encounter (principal) ==

== ENCOUNTER → 2023-04-08 | Outpatient (REF) | payer OTHER | LOC: M SFHCWAGY 13:21 | PROVIDERS: ATTEND Nurse Practitioner Family | DX: Z12.4 Encounter for screening for malignant neoplasm of cervix (principal); R87.810 Cervical high risk human papillomavirus (HPV) DNA test positive | CPT/HCPCS: 87624; G0123 ==

== ENCOUNTER → 2023-04-08 | Outpatient (CLI) | payer OTHER | LOC: M WHC 08:02 | PROVIDERS: ATTEND Nurse Practitioner Family | DX: Z12.31 Encounter for screening mammogram for malignant neoplasm of breast (principal); Z85.3 Personal history of malignant neoplasm of breast ==

== ENCOUNTER → 2023-05-13 | Outpatient (REF) | payer OTHER ==
[2023-05-13 17:24] LABS: BASO % 0.3 % (0.0-1.0); EOS % 0.6 % (0.0-3.0); HEMATOCRIT 34.7 % (36.0-47.0); HEMOGLOBIN 11.3 g/dl (12.0-15.5); LYMPH % 30.5 % (24.0-44.0); MEAN CORPUSCULAR HEMOGLOBIN 31.2 pg (27.0-33.0); MEAN CORPUSCULAR HGB CONC 32.6 g/dl (32.0-36.5); MEAN CORPUSCULAR VOLUME 95.9 fl (80.0-96.0); MONO # 0.4 10^3/uL (0.0-0.8); MONO % 11.6 % (2.0-8.0); NEUTROPHILS # 1.8 10^3/uL (1.5-8.5); NEUTROPHILS % 56.7 % (36.0-66.0); PLATELET COUNT, AUTOMATED 238 10^3/uL (150-450); RED BLOOD COUNT 3.62 10^6/uL (4.00-5.40); WHITE BLOOD COUNT 3.2 10^3/uL (4.0-10.0)
== END ==
LOC: M SFHCCAPE 07:56
PROVIDERS: ATTEND Physician Assistant Medical
DX: E03.9 Hypothyroidism, unspecified (principal); E78.1 Pure hyperglyceridemia; E53.8 Deficiency of other specified B group vitamins; I10 Essential (primary) hypertension

== ENCOUNTER → 2023-05-27 | Outpatient (REF) | payer OTHER ==
[~2023-05-27] MED LIST changes: +ATEN25TA PO; +Folate PO
== END ==
LOC: M PLALAB 13:48
PROVIDERS: ATTEND Advanced Practice Midwife
DX: R87.810 Cervical high risk human papillomavirus (HPV) DNA test positive (principal); R87.612 Low grade squamous intraepithelial lesion on cytologic smear of cervix (LGSIL)

== ENCOUNTER → 2023-09-13 | Outpatient (REF) | payer OTHER ==
[2023-09-13 17:58] LABS: BASO % 0.6 % (0.0-1.0); EOS % 0.8 % (0.0-3.0); HEMATOCRIT 36.6 % (36.0-47.0); HEMOGLOBIN 11.8 g/dl (12.0-15.5); LYMPH # 0.9 10^3/uL (1.5-5.0); LYMPH % 17.9 % (24.0-44.0); MEAN CORPUSCULAR HEMOGLOBIN 30.8 pg (27.0-33.0); MEAN CORPUSCULAR HGB CONC 32.2 g/dl (32.0-36.5); MEAN CORPUSCULAR VOLUME 95.6 fl (80.0-96.0); MONO # 0.4 10^3/uL (0.0-0.8); MONO % 8.2 % (2.0-8.0); NEUTROPHILS # 3.6 10^3/uL (1.5-8.5); NEUTROPHILS % 72.1 % (36.0-66.0); PLATELET COUNT, AUTOMATED 263 10^3/uL (150-450); RED BLOOD COUNT 3.83 10^6/uL (4.00-5.40)
[2023-09-13 18:23] LABS: FREE T4 0.84 NG/DL (0.89-1.76)
[2023-09-13 18:24] LABS: FERRITIN 25.7 NG/ML (7.3-270.7); THYROID STIMULATING HORMONE 6.112 uIU/ML (0.55-4.78)
[2023-09-13 18:25] LABS: FOLATE > 24.0 NG/ML (>5.4)
[2023-09-13 18:26] LABS: IRON (FE) 100 UG/DL (50-170); PERCENT SATURATION 25.8 % (13.2-45.0); TOTAL IRON BINDING CAPACITY 387 UG/DL (250-425)
[2023-09-13 18:27] LABS: ALBUMIN 3.7 G/DL (3.2-5.2); ALKALINE PHOSPHATASE 113 U/L (46-116); ALT/SGPT 26 U/L (7.0-40); AST/SGOT 34 U/L (<34); BILIRUBIN,TOTAL 0.5 MG/DL (0.3-1.2); BLOOD UREA NITROGEN 13 MG/DL (9-23); CALCIUM LEVEL 9.2 MG/DL (8.3-10.6); CARBON DIOXIDE LEVEL 27 MMOL/L (20-31); CHLORIDE LEVEL 106 MMOL/L (98-107); CHOLESTEROL LEVEL 194 MG/DL (<200); CHOLESTEROL RISK RATIO 2.53 (<5); CREATININE FOR GFR 0.61 MG/DL (0.55-1.30); GLOMERULAR FILTRATION RATE > 60.0 (>45); GLUCOSE, FASTING 115 MG/DL (74-106); HDL CHOLESTEROL 76.6 MG/DL (>40); LDL CHOLESTEROL 88.8 MG/DL (<100); NON-HDL-C 117.4 MG/DL; POTASSIUM SERUM 4.3 MMOL/L (3.5-5.1); SODIUM LEVEL 136 MMOL/L (136-145); TRIGLYCERIDES LEVEL 143 MG/DL (<150); VITAMIN B12 LEVEL 437 PG/ML (211-911)
== END ==
LOC: M SFHCCAPE 08:42
PROVIDERS: ATTEND Physician Assistant Medical
DX: I10 Essential (primary) hypertension (principal); E03.9 Hypothyroidism, unspecified; D50.9 Iron deficiency anemia, unspecified; E78.1 Pure hyperglyceridemia; F10.10 Alcohol abuse, uncomplicated

== ENCOUNTER → 2024-03-15 | Outpatient (REF) | payer MEDICARE ==
[~2024-03-15] MED LIST changes: +FLUO-365 PO; -FLUO20CA22 PO
[2024-03-15 17:36] LABS: ALBUMIN 3.2 G/DL (3.2-5.2); ALKALINE PHOSPHATASE 140 U/L (46-116); ALT/SGPT 45 U/L (7.0-40); AST/SGOT 64 U/L (<34); BILIRUBIN,TOTAL 0.5 MG/DL (0.3-1.2); BLOOD UREA NITROGEN < 5 MG/DL (9-23); CALCIUM LEVEL 9.2 MG/DL (8.3-10.6); CARBON DIOXIDE LEVEL 28 MMOL/L (20-31); CHLORIDE LEVEL 105 MMOL/L (98-107); CREATININE FOR GFR 0.61 MG/DL (0.55-1.30); FREE T4 1.04 NG/DL (0.89-1.76); GLOMERULAR FILTRATION RATE > 60.0 (>45); GLUCOSE, FASTING 113 MG/DL (74-106); POTASSIUM SERUM 4.5 MMOL/L (3.5-5.1); SODIUM LEVEL 137 MMOL/L (136-145); THYROID STIMULATING HORMONE 1.957 uIU/ML (0.55-4.78); TOTAL PROTEIN 6.8 G/DL (5.7-8.2)
[2024-03-15 17:45] LABS: BASO % 0.6 % (0.0-1.0); EOS # 0.1 10^3/uL (0.0-0.5); EOS % 1.9 % (0.0-3.0); HEMATOCRIT 39.7 % (36.0-47.0); HEMOGLOBIN 12.3 g/dl (12.0-15.5); LYMPH # 0.9 10^3/uL (1.5-5.0); LYMPH % 19.6 % (24.0-44.0); MEAN CORPUSCULAR HEMOGLOBIN 29.4 pg (27.0-33.0); MONO # 0.5 10^3/uL (0.0-0.8); MONO % 10.3 % (2.0-8.0); NEUTROPHILS # 3.2 10^3/uL (1.5-8.5); NEUTROPHILS % 67.2 % (36.0-66.0); PLATELET COUNT, AUTOMATED 255 10^3/uL (150-450); RED BLOOD COUNT 4.18 10^6/uL (4.00-5.40); WHITE BLOOD COUNT 4.8 10^3/uL (4.0-10.0)
== END ==
LOC: M SFHCCAPE 08:29
PROVIDERS: ATTEND Physician Assistant Medical
DX: I10 Essential (primary) hypertension (principal); M79.89 Other specified soft tissue disorders; E03.9 Hypothyroidism, unspecified; Z85.3 Personal history of malignant neoplasm of breast; F41.8 Other specified anxiety disorders; R06.02 Shortness of breath

== ENCOUNTER → 2024-04-04 | Outpatient (CLI) | payer MEDICARE, MEDICAID | LOC: M EKG 08:42 | PROVIDERS: ATTEND Registered Nurse | DX: I48.0 Paroxysmal atrial fibrillation (principal) ==

== ENCOUNTER → 2024-04-12 | Outpatient (CLI) | payer MEDICARE, MEDICAID | LOC: M WHC 11:17 | PROVIDERS: ATTEND Physician Assistant Medical | DX: Z12.31 Encounter for screening mammogram for malignant neoplasm of breast (principal) ==

== ENCOUNTER → 2024-04-20 | Outpatient (CLI) | payer MEDICARE, MEDICAID | LOC: M PLAIMG 09:08 | PROVIDERS: ATTEND Registered Nurse | DX: I34.0 Nonrheumatic mitral (valve) insufficiency (principal) ==

== ENCOUNTER → 2024-05-18 | Outpatient (CLI) | payer MEDICARE, MEDICAID ==
[~2024-05-18] MED LIST changes: +ATEN50TA2; +GASTROGRAFIN SOLUTION 30ML As Ordered ONE; +ISOVUE-370 76% 100ML VIAL As Ordered ONE
== END ==
LOC: M RAD 08:31
PROVIDERS: ATTEND Internal Medicine Hematology & Oncology
DX: Z85.3 Personal history of malignant neoplasm of breast (principal); R91.8 Other nonspecific abnormal finding of lung field; K76.0 Fatty (change of) liver, not elsewhere classified
CPT/HCPCS: 71260; 74177; Q9963; Q9967

== ENCOUNTER → 2024-06-08 | Outpatient (CLI) | payer MEDICARE, MEDICAID ==
[~2024-06-08] MED LIST changes: +ACETAMINOPHEN 325 MG TAB As Ordered ONE; -GASTROGRAFIN SOLUTION 30ML As Ordered ONE; -ISOVUE-370 76% 100ML VIAL As Ordered ONE; +LIDOCAINE 1% MDV 20ML VIAL As Ordered ONE; +MIDAZOLAM INJ 2MG/2ML VIAL As Ordered ONE; +fentaNYL 100 MCG/2 ML INJECTION As Ordered ONE
[2024-06-08 08:20] VITALS: TEMP 97.4
[2024-06-08] MEDS: ACETAMINOPHEN TAB 650MG DOSE (2X325MG) PO PRN (10:02)
[2024-06-08 11:45] VITALS: BP 104/64; O2SAT 97
== END ==
LOC: M IRPRO 08:07
PROVIDERS: ATTEND Internal Medicine Hematology & Oncology
DX: R91.8 Other nonspecific abnormal finding of lung field (principal); Z85.3 Personal history of malignant neoplasm of breast; J95.811 Postprocedural pneumothorax; C34.31 Malignant neoplasm of lower lobe, right bronchus or lung
CPT/HCPCS: 32408; 88305; 99152; 99153; J2250; J3010

== ENCOUNTER → 2024-07-04 | Outpatient (CLI) | payer MEDICAID, MEDICARE, OTHER ==
[~2024-07-04] MED LIST changes: -ACETAMINOPHEN 325 MG TAB As Ordered ONE; -LIDOCAINE 1% MDV 20ML VIAL As Ordered ONE; -MIDAZOLAM INJ 2MG/2ML VIAL As Ordered ONE; -fentaNYL 100 MCG/2 ML INJECTION As Ordered ONE
== END ==
LOC: M ONCR 10:16
PROVIDERS: ATTEND General Practice
DX: C34.31 Malignant neoplasm of lower lobe, right bronchus or lung (principal); C50.912 Malignant neoplasm of unspecified site of left female breast; C77.3 Secondary and unspecified malignant neoplasm of axilla and upper limb lymph nodes; F17.210 Nicotine dependence, cigarettes, uncomplicated; Z92.21 Personal history of antineoplastic chemotherapy; Z92.3 Personal history of irradiation; Z79.811 Long term (current) use of aromatase inhibitors; Z98.890 Other specified postprocedural states; Z79.01 Long term (current) use of anticoagulants; Z79.899 Other long term (current) drug therapy

== ENCOUNTER → 2024-07-11 | Outpatient (CLI) | payer MEDICARE | LOC: M PLARAD 12:25 | PROVIDERS: ATTEND Internal Medicine Hematology & Oncology | DX: C50.812 Malignant neoplasm of overlapping sites of left female breast (principal) | CPT/HCPCS: 78815; A9552 ==

== ENCOUNTER → 2024-08-25 | Outpatient (RCR) | payer MEDICARE, MEDICAID | LOC: M ONCR 08-01 13:34 | PROVIDERS: ATTEND General Practice | DX: Z51.0 Encounter for antineoplastic radiation therapy (principal); C34.31 Malignant neoplasm of lower lobe, right bronchus or lung ==

== ENCOUNTER 2024-09-01 21:13 | Inpatient (IN) | payer MEDICARE, MEDICAID ==
[~2024-09-01] VITALS: Ht 167.6 cm; Wt 64.1 kg
[~2024-09-01 21:13] MED LIST changes: -ATEN50TA2
[2024-09-02] MEDS: PERCOCET 5MG/325MG TAB PO ONE (01:21)
[2024-09-02 03:22] LABS: BASO % 0.3 % (0.0-1.0); EOS % 0.6 % (0.0-3.0); HEMATOCRIT 36.2 % (36.0-47.0); HEMOGLOBIN 12.6 g/dl (12.0-15.5); LYMPH # 0.9 10^3/uL (1.5-5.0); LYMPH % 13.4 % (24.0-44.0); MEAN CORPUSCULAR HEMOGLOBIN 33.6 pg (27.0-33.0); MEAN CORPUSCULAR HGB CONC 34.8 g/dl (32.0-36.5); MEAN CORPUSCULAR VOLUME 96.5 fl (80.0-96.0); MONO # 0.5 10^3/uL (0.0-0.8); MONO % 6.5 % (2.0-8.0); NEUTROPHILS # 5.5 10^3/uL (1.5-8.5); NEUTROPHILS % 78.8 % (36.0-66.0); PLATELET COUNT, AUTOMATED 236 10^3/uL (150-450); RED BLOOD COUNT 3.75 10^6/uL (4.00-5.40); WHITE BLOOD COUNT 6.9 10^3/uL (4.0-10.0)
[2024-09-02 03:44] LABS: ETHYL ALCOHOL (ETHANOL) 0.214 % (0.000-0.010)
[2024-09-02 03:45] LABS: BLOOD UREA NITROGEN 10 MG/DL (9-23); CALCIUM LEVEL 8.2 MG/DL (8.3-10.6); CARBON DIOXIDE LEVEL 24 MMOL/L (20-31); CHLORIDE LEVEL 101 MMOL/L (98-107); GLOMERULAR FILTRATION RATE > 60.0 (>45); GLUCOSE, FASTING 108 MG/DL (74-106); POTASSIUM SERUM 4.5 MMOL/L (3.5-5.1); SODIUM LEVEL 134 MMOL/L (136-145)
[2024-09-02 04:57] VITALS: BP 128/86
[2024-09-02 05:01] VITALS: BP 128/86; TEMP 97; O2SAT 96
[2024-09-02] MEDS: THIAMINE 100 MG TAB PO SCH (05:05)
[2024-09-02] MEDS: NORCO, ANEXSIA 5/325MG TABLET (HYDROcodone/ACETAMINOPHEN) PO PRN (06:02)
[2024-09-02] MEDS ORDERED: CLON0.5T2 PO (07:28)
[2024-09-02] MEDS ORDERED: HOME MED LIST COMPLETE! XX SCH (07:30)
[2024-09-02] MEDS: MULTIVITAMINS/MINERALS THERAP 1 TAB PO SCH (08:15)
[2024-09-02] MEDS: FOLIC ACID 1MG TAB PO SCH (08:15)
[2024-09-02 08:23] LABS: INR 1.07; PARTIAL THROMBOPLASTIN TIME 37.3 SECONDS (24.8-34.2); PROTHROMBIN TIME 14.3 SECONDS (12.5-14.5)
[2024-09-02 08:30] LABS: ALBUMIN 3.2 G/DL (3.2-5.2); ALKALINE PHOSPHATASE 97 U/L (35-104); ALT/SGPT 27 U/L (7.0-40); AST/SGOT 50 U/L (<34); BILIRUBIN,TOTAL 0.3 MG/DL (0.3-1.2); BLOOD UREA NITROGEN 9 MG/DL (9-23); CALCIUM LEVEL 8.6 MG/DL (8.3-10.6); CARBON DIOXIDE LEVEL 24 MMOL/L (20-31); CHLORIDE LEVEL 103 MMOL/L (98-107); GLOMERULAR FILTRATION RATE > 60.0 (>45); GLUCOSE, FASTING 105 MG/DL (74-106); POTASSIUM SERUM 5.1 MMOL/L (3.5-5.1); SODIUM LEVEL 137 MMOL/L (136-145); TOTAL PROTEIN 6.8 G/DL (5.7-8.2)
[2024-09-02] MEDS ORDERED: LEVO75TA4 PO (08:35)
[2024-09-02] MEDS: KETOROLAC 30 MG/ML 1ML VIAL IV PRN (10:02)
[2024-09-02] MEDS: LEVOTHYROXINE 75MCG TABLET (0.075MG) PO SCH (10:04)
[2024-09-02] MEDS: LETROZOLE 2.5 MG TAB PO SCH (10:04)
[2024-09-02] MEDS: APIXABAN 5 MG TAB (ELIQUIS) PO SCH (10:04)
[2024-09-02 12:00] VITALS: BP 146/82; TEMP 97.2; O2SAT 98
[2024-09-02] MEDS ORDERED: MOM 30ML SUSPENSION UDC PO PRN (12:15)
[2024-09-02] MEDS: PARoxetine 20MG TABLET PO SCH (14:12)
[2024-09-02] MEDS: PERCOCET 5MG/325MG TAB PO PRN (14:12)
[2024-09-02] MEDS: FLECAINIDE 50MG TABLET PO SCH (14:13)
[2024-09-02] MEDS: atenoloL 50 MG TAB PO SCH (14:13)
[2024-09-02] MEDS: KETOROLAC 30 MG/ML 1ML VIAL IV SCH (17:47)
[2024-09-02 21:00] VITALS: BP 176/96; TEMP 96.4; O2SAT 96
[2024-09-02 22:00] VITALS: BP 166/95; TEMP 97.5
[2024-09-02] MEDS: SENNA 8.6 MG TAB (SENOKOT) PO SCH (22:24)
[2024-09-02] MEDS: DOCUSATE SODIUM 100MG CAPSULE PO SCH (22:30)
[2024-09-02] MEDS: METOCLOPRAMIDE INJ 10MG/2ML VIAL IV PRN (22:40)
[2024-09-03] VITALS (7 sets, daily range): BP systolic 136–156; BP diastolic 78–95; TEMP 97–97.2; O2SAT 94–97
[2024-09-03] MEDS: LORazepam 2 MG TAB PO PRN (01:50)
[2024-09-03] MEDS: ACETAMINOPHEN 325 MG TAB PO PRN (06:06)
[2024-09-03 06:32] LABS: HEMATOCRIT 34.8 % (36.0-47.0); HEMOGLOBIN 11.8 g/dl (12.0-15.5); MEAN CORPUSCULAR HEMOGLOBIN 33.1 pg (27.0-33.0); MEAN CORPUSCULAR HGB CONC 33.9 g/dl (32.0-36.5); MEAN CORPUSCULAR VOLUME 97.8 fl (80.0-96.0); PLATELET COUNT, AUTOMATED 163 10^3/uL (150-450); RED BLOOD COUNT 3.56 10^6/uL (4.00-5.40); WHITE BLOOD COUNT 4.2 10^3/uL (4.0-10.0)
[2024-09-03 07:13] LABS: ALBUMIN 2.8 G/DL (3.2-5.2); ALKALINE PHOSPHATASE 105 U/L (35-104); ALT/SGPT 24 U/L (7.0-40); AST/SGOT 27 U/L (<34); BILIRUBIN,TOTAL 0.5 MG/DL (0.3-1.2); BLOOD UREA NITROGEN 25 MG/DL (9-23); CALCIUM LEVEL 8.4 MG/DL (8.3-10.6); CARBON DIOXIDE LEVEL 29 MMOL/L (20-31); CHLORIDE LEVEL 101 MMOL/L (98-107); CREATININE FOR GFR 0.82 MG/DL (0.55-1.30); GLOMERULAR FILTRATION RATE > 60.0 (>45); GLUCOSE, FASTING 99 MG/DL (74-106); POTASSIUM SERUM 4.8 MMOL/L (3.5-5.1); SODIUM LEVEL 136 MMOL/L (136-145)
[2024-09-03] MEDS: PERCOCET 5MG/325MG TAB PO PRN (14:22)
[2024-09-04] VITALS: BP 112/73
[2024-09-04 03:49] VITALS: BP 114/70; TEMP 96.8; O2SAT 96
[2024-09-04 04:53] LABS: HEMATOCRIT 31.8 % (36.0-47.0); HEMOGLOBIN 10.7 g/dl (12.0-15.5); MEAN CORPUSCULAR HEMOGLOBIN 32.8 pg (27.0-33.0); MEAN CORPUSCULAR HGB CONC 33.6 g/dl (32.0-36.5); MEAN CORPUSCULAR VOLUME 97.5 fl (80.0-96.0); PLATELET COUNT, AUTOMATED 152 10^3/uL (150-450); RED BLOOD COUNT 3.26 10^6/uL (4.00-5.40); WHITE BLOOD COUNT 4.5 10^3/uL (4.0-10.0)
[2024-09-04 05:14] LABS: ALBUMIN 2.6 G/DL (3.2-5.2); ALKALINE PHOSPHATASE 97 U/L (35-104); ALT/SGPT 17 U/L (7.0-40); AST/SGOT 19 U/L (<34); BILIRUBIN,TOTAL 0.5 MG/DL (0.3-1.2); BLOOD UREA NITROGEN 21 MG/DL (9-23); CALCIUM LEVEL 8.7 MG/DL (8.3-10.6); CARBON DIOXIDE LEVEL 26 MMOL/L (20-31); CHLORIDE LEVEL 103 MMOL/L (98-107); CREATININE FOR GFR 0.65 MG/DL (0.55-1.30); GLOMERULAR FILTRATION RATE > 60.0 (>45); GLUCOSE, FASTING 100 MG/DL (74-106); POTASSIUM SERUM 4.5 MMOL/L (3.5-5.1); SODIUM LEVEL 136 MMOL/L (136-145); TOTAL PROTEIN 5.6 G/DL (5.7-8.2)
[2024-09-04 08:28] VITALS: BP 119/70; TEMP 97.9; O2SAT 96
[2024-09-04 20:24] VITALS: BP 138/68; TEMP 97.3; O2SAT 97
[2024-09-04] MEDS: diphenhydrAMINE 50MG/ML VIAL IV ONE (21:43)
[2024-09-05 03:39] VITALS: BP 140/70; TEMP 97.7; O2SAT 98
[2024-09-05 06:53] LABS: HEMOGLOBIN 9.9 g/dl (12.0-15.5); MEAN CORPUSCULAR HEMOGLOBIN 32.5 pg (27.0-33.0); MEAN CORPUSCULAR VOLUME 98.4 fl (80.0-96.0); PLATELET COUNT, AUTOMATED 156 10^3/uL (150-450); RED BLOOD COUNT 3.05 10^6/uL (4.00-5.40); WHITE BLOOD COUNT 4.2 10^3/uL (4.0-10.0)
[2024-09-05 07:47] LABS: ALBUMIN 2.9 G/DL (3.2-5.2); ALKALINE PHOSPHATASE 99 U/L (35-104); ALT/SGPT 16 U/L (7.0-40); AST/SGOT 23 U/L (<34); BILIRUBIN,TOTAL 0.6 MG/DL (0.3-1.2); BLOOD UREA NITROGEN 13 MG/DL (9-23); CARBON DIOXIDE LEVEL 28 MMOL/L (20-31); CHLORIDE LEVEL 102 MMOL/L (98-107); GLOMERULAR FILTRATION RATE > 60.0 (>45); GLUCOSE, FASTING 106 MG/DL (74-106); POTASSIUM SERUM 4.2 MMOL/L (3.5-5.1); SODIUM LEVEL 137 MMOL/L (136-145); TOTAL PROTEIN 6.1 G/DL (5.7-8.2)
[2024-09-05 09:29] VITALS: BP 140/65; TEMP 97.3; O2SAT 100
[2024-09-05] MEDS: clonazePAM 0.5 MG TAB PO PRN (16:46)
[2024-09-06 04:08] VITALS: BP 123/74; TEMP 97.2; O2SAT 98
[2024-09-06] MEDS: MOM 30ML SUSPENSION UDC PO PRN (08:17)
[2024-09-06 08:20] VITALS: BP 122/73; TEMP 97.2
[2024-09-06 08:21] VITALS: BP 122/73
[2024-09-06] MEDS ORDERED: PERCOCET PO (11:12)
[2024-09-06] MEDS: BISACODYL 10MG SUPP PR ONE (13:14)
== END 2024-09-06 15:14 | disposition home or self-care (01) | DRG 536 ==
LOC: M ED 21:13 → EDBD 21:13 → M ED INP 09-02 03:15 → M MSPAV 09-02 04:57
PROVIDERS: ADMIT Student in an Organized Health Care Education/Training Program; ATTEND Student in an Organized Health Care Education/Training Program
DX: S32.512A Fracture of superior rim of left pubis, initial encounter for closed fracture (principal); C34.90 Malignant neoplasm of unspecified part of unspecified bronchus or lung; E87.1 Hypo-osmolality and hyponatremia; E03.9 Hypothyroidism, unspecified; I10 Essential (primary) hypertension; F10.10 Alcohol abuse, uncomplicated; I48.91 Unspecified atrial fibrillation; Z85.3 Personal history of malignant neoplasm of breast; Z92.21 Personal history of antineoplastic chemotherapy; Z92.3 Personal history of irradiation; F41.9 Anxiety disorder, unspecified; F32.A Depression, unspecified; W01.0XXA Fall on same level from slipping, tripping and stumbling without subsequent striking against object, initial encounter; Y92.009 Unspecified place in unspecified non-institutional (private) residence as the place of occurrence of the external cause; R29.6 Repeated falls; F17.200 Nicotine dependence, unspecified, uncomplicated; Z79.01 Long term (current) use of anticoagulants; Z79.899 Other long term (current) drug therapy; S32.592A Other specified fracture of left pubis, initial encounter for closed fracture

== ENCOUNTER → 2024-09-20 | Outpatient (CLI) | payer MEDICARE, MEDICAID ==
[~2024-09-20] MED LIST changes: +CLON0.5T2 PO; +LEVO75TA4 PO; +PERCOCET PO
== END ==
LOC: M SOG 07:55
PROVIDERS: ATTEND Physician Assistant
DX: S32.512A Fracture of superior rim of left pubis, initial encounter for closed fracture (principal); Y93.9 Activity, unspecified; Y92.9 Unspecified place or not applicable

== ENCOUNTER → 2024-09-27 | Outpatient (CLI) | payer MEDICARE, MEDICAID | LOC: M EKG 09:47 | PROVIDERS: ATTEND Internal Medicine Cardiovascular Disease | DX: I48.21 Permanent atrial fibrillation (principal) ==

== ENCOUNTER → 2024-11-08 | Outpatient (CLI) | payer MEDICARE, MEDICAID | LOC: M SOG 08:26 | PROVIDERS: ATTEND Physician Assistant | DX: R10.2 Pelvic and perineal pain (principal) ==

== ENCOUNTER → 2024-11-15 | Outpatient (CLI) | payer MEDICARE, MEDICAID ==
[~2024-11-15] MED LIST changes: +ISOVUE-370 76% 100ML VIAL As Ordered ONE
== END ==
LOC: M RAD 14:18
PROVIDERS: ATTEND General Practice
DX: C34.90 Malignant neoplasm of unspecified part of unspecified bronchus or lung (principal)
CPT/HCPCS: 71260; Q9967

== ENCOUNTER → 2024-11-22 | Outpatient (CLI) | payer MEDICARE, MEDICAID ==
[~2024-11-22] MED LIST changes: -ISOVUE-370 76% 100ML VIAL As Ordered ONE
== END ==
LOC: M ONCR 10:47
PROVIDERS: ATTEND General Practice
DX: C34.31 Malignant neoplasm of lower lobe, right bronchus or lung (principal); C50.912 Malignant neoplasm of unspecified site of left female breast; C77.3 Secondary and unspecified malignant neoplasm of axilla and upper limb lymph nodes; F17.218 Nicotine dependence, cigarettes, with other nicotine-induced disorders; Z72.89 Other problems related to lifestyle; Z79.01 Long term (current) use of anticoagulants; Z79.811 Long term (current) use of aromatase inhibitors; Z79.899 Other long term (current) drug therapy; Z92.21 Personal history of antineoplastic chemotherapy; Z92.3 Personal history of irradiation

== ENCOUNTER → 2025-03-07 | Outpatient (REF) | payer MEDICARE, MEDICAID ==
[~2025-03-07] MED LIST changes: +LEVO1TAB39 PO; +LISI40TA10 PO; -LISI40TA4 PO
[2025-03-09 15:17] LABS: HPV APTIMA Detected (Not Detected)
== END ==
LOC: M PLALAB 15:24
PROVIDERS: ATTEND Advanced Practice Midwife
DX: Z12.4 Encounter for screening for malignant neoplasm of cervix (principal); Z11.51 Encounter for screening for human papillomavirus (HPV); Z87.42 Personal history of other diseases of the female genital tract
CPT/HCPCS: 87624; G0123

== ENCOUNTER → 2025-04-13 | Outpatient (CLI) | payer MEDICARE, MEDICAID | LOC: M WHC 10:07 | DX: Z12.31 Encounter for screening mammogram for malignant neoplasm of breast (principal); Z85.3 Personal history of malignant neoplasm of breast; R92.323 Mammographic fibroglandular density, bilateral breasts; M85.851 Other specified disorders of bone density and structure, right thigh ==

== ENCOUNTER → 2025-05-17 | Outpatient (CLI) | payer MEDICARE, MEDICAID | LOC: M RAD 12:32 | PROVIDERS: ATTEND General Practice | DX: C34.31 Malignant neoplasm of lower lobe, right bronchus or lung (principal); J90 Pleural effusion, not elsewhere classified; J98.11 Atelectasis; I70.0 Atherosclerosis of aorta; K76.0 Fatty (change of) liver, not elsewhere classified; R16.0 Hepatomegaly, not elsewhere classified; N20.0 Calculus of kidney ==

== ENCOUNTER 2025-06-12 22:08 | Inpatient (IN) | payer MEDICARE, MEDICAID ==
[~2025-06-12] VITALS: Ht 167.6 cm; Wt 75.8 kg
[~2025-06-12 22:08] MED LIST changes: -COEN100C4 PO; +MELA10TA22 PO; -RA M10TA PO; +UBID100C3 PO
[2025-06-12] MEDS: MORPHINE 2 MG/ML 1 ML VIAL IV ONE (23:15)
[2025-06-12 23:30] LABS: BASO # 0.0 10^3/uL (0.0-0.2); BASO % 0.2 % (0.0-1.0); EOS # 0.0 10^3/uL (0.0-0.5); EOS % 0.9 % (0.0-3.0); LYMPH # 0.9 10^3/uL (1.5-5.0); LYMPH % 20.4 % (24.0-44.0); MONO # 0.5 10^3/uL (0.0-0.8); MONO % 11.4 % (2.0-8.0); NEUTROPHILS # 3.0 10^3/uL (1.5-8.5); NEUTROPHILS % 66.9 % (36.0-66.0); PLATELET COUNT, AUTOMATED 370 10^3/uL (150-450)
[2025-06-12 23:53] LABS: INR 1.05
[2025-06-12 23:54] LABS: ETHYL ALCOHOL (ETHANOL) 0.295 % (0.000-0.010)
[2025-06-13] VITALS (7 sets, daily range): BP systolic 137–150; BP diastolic 72–82; TEMP 97.1–97.7; O2SAT 86–98
[2025-06-13 00:14] LABS: ALT/SGPT 20 U/L (7.0-40); AST/SGOT 36 U/L (<34); CALCIUM LEVEL 8.5 MG/DL (8.3-10.6); CARBON DIOXIDE LEVEL 24 MMOL/L (20-31); CHLORIDE LEVEL 98 MMOL/L (98-107); CREATININE FOR GFR 0.49 MG/DL (0.55-1.30); GLOMERULAR FILTRATION RATE > 90.0 (>45); POTASSIUM SERUM 4.3 MMOL/L (3.5-5.1); SODIUM LEVEL 134 MMOL/L (136-145)
[2025-06-13] MEDS: MORPHINE 2 MG/ML 1 ML VIAL IV PRN (00:17)
[2025-06-13] MEDS: ONDANSETRON 4MG/2ML VIAL IV ONE (00:17)
[2025-06-13] MEDS ORDERED: MOM 30 ML SUSPENSION UDC PO PRN (00:45)
[2025-06-13] MEDS: NS (Normal Saline) 0.9% 1,000 ML IV SCH (01:37)
[2025-06-13] MEDS: LEVOTHYROXINE 75 MCG TABLET (0.075 MG) PO SCH (05:52)
[2025-06-13] MEDS ORDERED: ELIQ5TAB PO (08:10)
[2025-06-13] MEDS ORDERED: HOME MED LIST COMPLETE! XX SCH (08:15)
[2025-06-13] MEDS: THIAMINE 100 MG TAB PO SCH (08:46)
[2025-06-13] MEDS: ACETAMINOPHEN 325 MG TAB PO SCH (08:46)
[2025-06-13] MEDS: MULTIVITAMINS/MINERALS THERAP 1 TAB PO SCH (08:46)
[2025-06-13] MEDS: PARoxetine 20MG TABLET PO SCH (08:46)
[2025-06-13] MEDS: FOLIC ACID 1 MG TAB PO SCH (08:49)
[2025-06-13] MEDS ORDERED: ONDANSETRON 4MG/2ML VIAL As Ordered ONE (16:53)
[2025-06-13] MEDS ORDERED: dexAMETHasone 4 MG/ML 1 ML VIAL As Ordered ONE (16:53)
[2025-06-13] MEDS ORDERED: LIDOCAINE 2% 100 MG/5 ML SDV (FOR ANES.) As Ordered ONE (16:53)
[2025-06-13] MEDS ORDERED: MIDAZOLAM INJ 2 MG/2 ML VIAL As Ordered ONE (17:04)
[2025-06-13] MEDS ORDERED: dexmedeTOMIDine (4 MCG/ML) 200 MCG/50 ML BTL As Ordered ONE (20:47)
[2025-06-13] MEDS ORDERED: ACETAMINOPHEN 1000MG/100ML IV BAG As Ordered ONE (20:54)
[2025-06-13] MEDS: LR 1,000 ML IV SCH (21:45)
[2025-06-13] MEDS ORDERED: ONDANSETRON 4MG/2ML VIAL IV PRN (21:45)
[2025-06-13] MEDS ORDERED: LABETALOL 100 MG/20 ML VIAL As Ordered ONE (22:23)
[2025-06-13] MEDS: LABETALOL 100 MG/20 ML VIAL IV PRN (22:25)
[2025-06-13] MEDS: HYDROMORPHONE HCL 0.5 MG/0.5 ML SYRINGE IV PRN (22:32)
[2025-06-14] VITALS (11 sets, daily range): BP systolic 113–156; BP diastolic 56–88; TEMP 97–98; O2SAT 92–96
[2025-06-14] MEDS: ceFAZolin SODIUM 2 GM in DEXTROSE 5% (D5W) ADV/MINI-BAG 50 ML IV SCH (02:21)
[2025-06-14 06:30] LABS: PLATELET COUNT, AUTOMATED 292 10^3/uL (150-450)
[2025-06-14 06:55] LABS: CALCIUM LEVEL 8.5 MG/DL (8.3-10.6); CARBON DIOXIDE LEVEL 24 MMOL/L (20-31); CHLORIDE LEVEL 104 MMOL/L (98-107); CREATININE FOR GFR 0.46 MG/DL (0.55-1.30); GLOMERULAR FILTRATION RATE > 90.0 (>45); POTASSIUM SERUM 4.4 MMOL/L (3.5-5.1); SODIUM LEVEL 136 MMOL/L (136-145)
[2025-06-14] MEDS: MORPHINE 4 MG/ML 1 ML VIAL IV PRN (09:50)
[2025-06-14] MEDS: APIXABAN 5 MG TAB PO ONE (10:40)
[2025-06-14] MEDS: APIXABAN 5 MG TAB PO SCH (21:20)
[2025-06-15] VITALS (10 sets, daily range): BP systolic 115–139; BP diastolic 57–85; TEMP 97.2–98.1; O2SAT 86–97
[2025-06-15] MEDS: DIGOXIN INJ 0.5 MG/2 ML AMP IV STA (09:02)
[2025-06-15 09:36] LABS: BASO # 0.0 10^3/uL (0.0-0.2); BASO % 0.3 % (0.0-1.0); EOS # 0.1 10^3/uL (0.0-0.5); EOS % 1.0 % (0.0-3.0); LYMPH # 0.7 10^3/uL (1.5-5.0); LYMPH % 11.2 % (24.0-44.0); MONO # 0.7 10^3/uL (0.0-0.8); MONO % 11.5 % (2.0-8.0); NEUTROPHILS # 4.6 10^3/uL (1.5-8.5); NEUTROPHILS % 75.7 % (36.0-66.0); PLATELET COUNT, AUTOMATED 249 10^3/uL (150-450)
[2025-06-15 10:16] LABS: ALT/SGPT 12 U/L (7.0-40); AST/SGOT 21 U/L (<34); CALCIUM LEVEL 8.7 MG/DL (8.3-10.6); CARBON DIOXIDE LEVEL 28 MMOL/L (20-31); CHLORIDE LEVEL 101 MMOL/L (98-107); CREATININE FOR GFR 0.50 MG/DL (0.55-1.30); GLOMERULAR FILTRATION RATE > 90.0 (>45); MAGNESIUM LEVEL 1.5 MG/DL (1.8-2.4); POTASSIUM SERUM 4.1 MMOL/L (3.5-5.1); SODIUM LEVEL 135 MMOL/L (136-145)
[2025-06-15] MEDS: MAG SULF 1GM/100ML (MAG RUN) 1 GM in IV 1 EA IV SCH (12:57)
[2025-06-16] VITALS (20 sets, daily range): BP systolic 115–148; BP diastolic 64–95; TEMP 97–98.4; O2SAT 91–97
[2025-06-16 07:24] LABS: BASO # 0.0 10^3/uL (0.0-0.2); BASO % 0.4 % (0.0-1.0); EOS # 0.1 10^3/uL (0.0-0.5); EOS % 1.4 % (0.0-3.0); LYMPH # 0.6 10^3/uL (1.5-5.0); LYMPH % 11.4 % (24.0-44.0); MONO # 0.7 10^3/uL (0.0-0.8); MONO % 13.2 % (2.0-8.0); NEUTROPHILS # 3.7 10^3/uL (1.5-8.5); NEUTROPHILS % 73.2 % (36.0-66.0); PLATELET COUNT, AUTOMATED 267 10^3/uL (150-450)
[2025-06-16] MEDS: DIGOXIN INJ 0.5 MG/2 ML AMP IV ONE (07:34)
[2025-06-16 07:56] LABS: CALCIUM LEVEL 8.6 MG/DL (8.3-10.6); CARBON DIOXIDE LEVEL 27 MMOL/L (20-31); CHLORIDE LEVEL 104 MMOL/L (98-107); CREATININE FOR GFR 0.49 MG/DL (0.55-1.30); GLOMERULAR FILTRATION RATE > 90.0 (>45); MAGNESIUM LEVEL 1.6 MG/DL (1.8-2.4); POTASSIUM SERUM 3.8 MMOL/L (3.5-5.1); SODIUM LEVEL 140 MMOL/L (136-145)
[2025-06-16] MEDS: AMIODARONE HCL 150 MG in IV 1 EA IV ONE (10:16)
[2025-06-16] MEDS: AMIODARONE HCL 360 MG in IV 1 EA IV SCH ×2 (10:44→17:04)
[2025-06-16] MEDS: MAG SULF 1GM/100ML (MAG RUN) 1 GM in IV 1 EA IV SCH (10:44)
[2025-06-16] MEDS: POTASSIUM CHLORIDE 10MEQ SR TABLET PO ONE (10:45)
[2025-06-16] MEDS ORDERED: PERCOCET 5MG/325MG TAB PO PRN (13:50)
[2025-06-17] VITALS (25 sets, daily range): BP systolic 114–170; BP diastolic 70–106; TEMP 96.9–98.1; O2SAT 96–98
[2025-06-17 04:19] LABS: BASO # 0.0 10^3/uL (0.0-0.2); BASO % 0.4 % (0.0-1.0); EOS # 0.1 10^3/uL (0.0-0.5); EOS % 2.1 % (0.0-3.0); LYMPH # 0.8 10^3/uL (1.5-5.0); LYMPH % 16.5 % (24.0-44.0); MONO # 0.6 10^3/uL (0.0-0.8); MONO % 11.5 % (2.0-8.0); NEUTROPHILS # 3.3 10^3/uL (1.5-8.5); NEUTROPHILS % 68.9 % (36.0-66.0); PLATELET COUNT, AUTOMATED 291 10^3/uL (150-450)
[2025-06-17 04:45] LABS: CALCIUM LEVEL 8.5 MG/DL (8.3-10.6); CARBON DIOXIDE LEVEL 28 MMOL/L (20-31); CHLORIDE LEVEL 103 MMOL/L (98-107); CREATININE FOR GFR 0.49 MG/DL (0.55-1.30); GLOMERULAR FILTRATION RATE > 90.0 (>45); MAGNESIUM LEVEL 1.6 MG/DL (1.8-2.4); POTASSIUM SERUM 4.3 MMOL/L (3.5-5.1); SODIUM LEVEL 137 MMOL/L (136-145)
[2025-06-17] MEDS: SENNA 8.6 MG TAB PO PRN (08:42)
[2025-06-17] MEDS: MAGNESIUM GLUCONATE 500 MG TAB PO SCH (08:42)
[2025-06-17] MEDS: MIRALAX *UNIT DOSE* 17 GM PACKET PO SCH (08:43)
[2025-06-17] MEDS: MAG SULF 1GM/100ML (MAG RUN) 1 GM in IV 1 EA IV SCH (08:44)
[2025-06-17] MEDS: AMIODARONE 200 MG TAB PO SCH (10:27)
[2025-06-17] MEDS: clonazePAM 0.5 MG TAB PO PRN (23:02)
[2025-06-18] VITALS (18 sets, daily range): BP systolic 113–154; BP diastolic 59–98; TEMP 97.1–98.1; O2SAT 88–100
[2025-06-18 06:56] LABS: BASO # 0.0 10^3/uL (0.0-0.2); BASO % 0.4 % (0.0-1.0); EOS # 0.1 10^3/uL (0.0-0.5); EOS % 1.1 % (0.0-3.0); LYMPH # 0.7 10^3/uL (1.5-5.0); LYMPH % 13.0 % (24.0-44.0); MONO # 1.2 10^3/uL (0.0-0.8); MONO % 23.4 % (2.0-8.0); NEUTROPHILS # 3.2 10^3/uL (1.5-8.5); NEUTROPHILS % 61.7 % (36.0-66.0); PLATELET COUNT, AUTOMATED 257 10^3/uL (150-450)
[2025-06-18 07:24] LABS: CALCIUM LEVEL 8.3 MG/DL (8.3-10.6); CARBON DIOXIDE LEVEL 26 MMOL/L (20-31); CHLORIDE LEVEL 106 MMOL/L (98-107); CREATININE FOR GFR 0.55 MG/DL (0.55-1.30); GLOMERULAR FILTRATION RATE > 90.0 (>45); MAGNESIUM LEVEL 1.6 MG/DL (1.8-2.4); POTASSIUM SERUM 5.2 MMOL/L (3.5-5.1); SODIUM LEVEL 138 MMOL/L (136-145)
[2025-06-18] MEDS: MAG SULF 1GM/100ML (MAG RUN) 1 GM in IV 1 EA IV SCH (09:13)
[2025-06-18] MEDS: OXAZEPAM 10MG CAP PO SCH (12:09)
[2025-06-19] VITALS (9 sets, daily range): BP systolic 118–165; BP diastolic 71–89; TEMP 97.2–97.7; O2SAT 96–100
[2025-06-19 05:10] LABS: BASO # 0.0 10^3/uL (0.0-0.2); BASO % 0.7 % (0.0-1.0); EOS # 0.1 10^3/uL (0.0-0.5); EOS % 2.4 % (0.0-3.0); LYMPH # 0.5 10^3/uL (1.5-5.0); LYMPH % 16.8 % (24.0-44.0); MONO # 0.6 10^3/uL (0.0-0.8); MONO % 21.2 % (2.0-8.0); NEUTROPHILS # 1.7 10^3/uL (1.5-8.5); NEUTROPHILS % 58.6 % (36.0-66.0); PLATELET COUNT, AUTOMATED 312 10^3/uL (150-450)
[2025-06-19 05:29] LABS: CALCIUM LEVEL 8.5 MG/DL (8.3-10.6); CARBON DIOXIDE LEVEL 27 MMOL/L (20-31); CHLORIDE LEVEL 104 MMOL/L (98-107); CREATININE FOR GFR 0.53 MG/DL (0.55-1.30); GLOMERULAR FILTRATION RATE > 90.0 (>45); MAGNESIUM LEVEL 1.6 MG/DL (1.8-2.4); POTASSIUM SERUM 4.4 MMOL/L (3.5-5.1); SODIUM LEVEL 138 MMOL/L (136-145)
[2025-06-19] MEDS: MAG SULF 1GM/100ML (MAG RUN) 1 GM in IV 1 EA IV SCH (06:19)
[2025-06-19] MEDS ORDERED: LEVALBUTEROL 1.25 MG 0.5ML CONCENTRATE NEB INH PRN (07:55)
[2025-06-19] MEDS: LEVALBUTEROL 1.25 MG 0.5ML CONCENTRATE NEB INH SCH (09:00)
[2025-06-19] MEDS: SENNA 8.6 MG TAB PO SCH (09:22)
[2025-06-19] MEDS: LETROZOLE 2.5 MG TAB PO SCH (13:19)
[2025-06-19] MEDS: OXAZEPAM 10MG CAP PO SCH (14:37)
[2025-06-19] MEDS ORDERED: ACET32TAB PO (15:15)
[2025-06-19] MEDS ORDERED: AMIO200T54 PO (15:15)
[2025-06-19] MEDS ORDERED: SENN18TA PO (15:15)
[2025-06-19] MEDS ORDERED: LEVA1.25 INH (15:15)
[2025-06-19] MEDS ORDERED: MAGN50TA PO (15:15)
[2025-06-19] MEDS ORDERED: MIRA33506 PO (15:15)
[2025-06-19] MEDS ORDERED: THERTAB19 PO (15:15)
[2025-06-19] MEDS ORDERED: FOLI1TAB11 PO (15:15)
[2025-06-21] MEDS ORDERED: clonazePAM 0.5 MG TAB PO PRN (09:00)
[2025-06-22] MEDS ORDERED: AMIODARONE 200 MG TAB PO SCH (09:00)
== END 2025-06-19 17:22 | DRG 494 ==
LOC: M ED 22:08 → M ED INP 06-13 00:42 → M MSPAV 06-13 14:11 → M ICU 06-16 07:56
PROVIDERS: ADMIT Internal Medicine; ATTEND Internal Medicine
PROC: 0QSH04Z Reposition Left Tibia with Internal Fixation Device, Open Approach (ICD-10-PCS; 2025-06-13)
PROC: 0QSK04Z Reposition Left Fibula with Internal Fixation Device, Open Approach (ICD-10-PCS; principal; 2025-06-13 13:15)
DX: S82.845A Nondisplaced bimalleolar fracture of left lower leg, initial encounter for closed fracture (principal); E03.9 Hypothyroidism, unspecified; I10 Essential (primary) hypertension; I48.91 Unspecified atrial fibrillation; R41.0 Disorientation, unspecified; F32.A Depression, unspecified; C50.912 Malignant neoplasm of unspecified site of left female breast; F10.20 Alcohol dependence, uncomplicated; E83.42 Hypomagnesemia; K59.00 Constipation, unspecified; E87.6 Hypokalemia; F41.9 Anxiety disorder, unspecified; F17.200 Nicotine dependence, unspecified, uncomplicated; Z79.01 Long term (current) use of anticoagulants; B00.9 Herpesviral infection, unspecified; Z92.21 Personal history of antineoplastic chemotherapy; Z79.899 Other long term (current) drug therapy; Z79.890 Hormone replacement therapy; W18.30XA Fall on same level, unspecified, initial encounter; Y92.009 Unspecified place in unspecified non-institutional (private) residence as the place of occurrence of the external cause

== ENCOUNTER → 2025-07-02 | Outpatient (CLI) | payer MEDICARE, MEDICAID ==
[~2025-07-02] MED LIST changes: +ACET32TAB PO; +AMIO200T54 PO; +LEVA1.25 INH; +MAGN50TA PO; -MELA10TA22 PO; +MELA10TA30 PO; +MIRA33506 PO; +SENN18TA PO; +THERTAB19 PO
== END ==
LOC: M SOG 08:46
PROVIDERS: ATTEND Orthopaedic Surgery
DX: S82.842A Displaced bimalleolar fracture of left lower leg, initial encounter for closed fracture (principal); Z53.9 Procedure and treatment not carried out, unspecified reason

== ENCOUNTER → 2025-07-04 | Outpatient (CLI) | payer MEDICARE, MEDICAID | LOC: M SOG 07:35 | PROVIDERS: ATTEND Orthopaedic Surgery | DX: Z53.9 Procedure and treatment not carried out, unspecified reason (principal) ==

== ENCOUNTER → 2025-07-11 | Outpatient (CLI) | payer MEDICARE, MEDICAID | LOC: M SOG 07:35 | PROVIDERS: ATTEND Orthopaedic Surgery | DX: S82.842A Displaced bimalleolar fracture of left lower leg, initial encounter for closed fracture (principal); W18.30XA Fall on same level, unspecified, initial encounter; Y92.009 Unspecified place in unspecified non-institutional (private) residence as the place of occurrence of the external cause ==